=== PATIENT | female | born 1945 | race Caucasian/White ===

== ENCOUNTER 2018-10-17 10:21 | Inpatient (IN) | payer OTHER, BC ==
--- OUTSIDE RECORDS SUMMARY | 2018-10-17 10:23 | XMS REPORT | Clinical Summary ---
:1945 Author Organization [facility] Address [address] [place] [address] Care Team Providers Name Role Phone Esteban Jesus MD Primary Care Provider Allergies Active Allergy Reactions Severity Noted Date Comments Brimonidine 04/27/2017 Eyes becomes red Celecoxib Rash Low 04/27/2017 Codeine Other (See Comments) 04/27/2017 nausea Medications Medication Sig Dispensed Refills Start Date End Date Status acetaZOLAMIDE (DIAMOX) Take 125 mg by 0 Active 125 MG tablet mouth 3 (three) times a day. metFORMIN (GLUCOPHAGE) Take 1,000 mg by 0 Active 1,000 mg tablet mouth 2 (two) times a day with meals. gabapentin (NEURONTIN) Take 300 mg by 0 Active 300 mg capsule mouth 3 (three) times a day. nebivolol (BYSTOLIC) 10 Take 10 mg by 0 Active MG tablet mouth daily. atorvastatin (LIPITOR) Take 40 mg by 0 Active 40 MG tablet mouth daily. torsemide (DEMADEX) 20 Take 20 mg by 0 Active MG tablet mouth daily. rivaroxaban (XARELTO) Take 20 mg by 0 Active 20 mg tablet mouth. desvenlafaxine Take 50 mg by 0 Active (PRISTIQ) 50 MG 24 hr mouth daily. tablet ramipril (ALTACE) 5 MG Take 5 mg by 0 Active capsule mouth daily. oxyCODone (ROXICODONE) Take by mouth 0 Active 10 MG tablet every 4 (four) hours as needed for moderate pain. bimatoprost (LUMIGAN) 1 drop nightly. 0 Active 0.01 % ophthalmic drops dorzolamide-timolol 1 drop 2 (two) 0 Active (COSOPT) 22.3-6.8 mg/mL times a day. ophthalmic solution Active Problems Problem Noted Date Osteoarthritis of one hip, left 05/10/2017 Encounters Date Type Specialty Care Team Description 03/02/2018 Hospital Encounter Radiology Frederick Duckworth MD 02/27/2018 Office Visit General Surgery Frederick Duckworth Pancreatic cyst MD Keila (Primary Dx) after 10/16/2017 Social History Tobacco Use Types Packs/Day Years Used Date Former Smoker 04 18 Quit: 1999 Smokeless Tobacco: Never Used Sex Assigned at Date Recorded Not on file Job Start Date Occupation Industry Not on file Not on file Not on file Travel History Travel Start Travel End No recent travel history available. Last Filed Vital Signs Not on file Plan of Treatment Health Maintenance Due Date Last Done Comments BREAST CANCER SCREENING 1996 COLONOSCOPY SCREENING 1996 SHINGLES VACCINES (#1) 1996 65+ PNEUMOCOCCAL VACCINE (2 of 2 - PPSV23) 11/06/2011 03/20/2012 INFLUENZA VACCINE 10/18/2018 Implants Implanted Type Area Candy Butcher Device Shelf Model / Identifier Expiration Serial / Lot Date Screw Bone Canc Dome 6.5x25mm Ltxf [place] - [id number] Hip Joint Left: DEPUY ORTHO 01/17/2027 [id number] / Implanted: Qty: 1 on 05/10/2017 by Jayro Sykes MD Implants Hip / Shell Actblr Mul-Hl W/ Gripton 54mm [place] - [id number] Hip Joint Left: DEPUY 01/17/2027 [id number] / Implanted: 05/10/2017 (Quantity not on file) Implants Hip ORTHO-KNEES / [id number] Liner Actblr Neut Altra Linked Pe [id number] +4 Altrx - [id number] Hip Joint Left: DEPUY 01/17/2022 [id number] / Implanted: 05/10/2017 (Quantity not on file) Implants Hip ORTHO-KNEES / [id number] Head Fml Neck 03/02 Tprd Mtl 36mm -2 Articul/Mathew Ultamet - [id number] Hip Joint Left: DEPUY ORTHO 01/17/2022 [id number] / Implanted: 05/10/2017 (Quantity not on file) Implants Hip / [id number] Stem Hip Cmntls Tprd Procoat Pors Ctng Hiofst Ti Alloy 155mm - [id number] Hip Joint Left: DEPUY ORTHO 01/17/2026 [id number] / Implanted: 05/10/2017 (Quantity not on file) Implants Hip / [id number] Procedures Procedure Name Priority Date/Time Associated Diagnosis Comments CT ABD/PELVIC Routine 02/02/2018 1:50 PM Results for this EXTERNAL STUDY MACHINE BINDER STRIPPER procedure are in the results section. after 10/16/[address] Abd/Pelvic External Study (02/02/2018 1:50 PM MACHINE BINDER STRIPPER) Specimen Narrative Performed At This exam was not acquired at a Religious facility and has not been [facility] interpreted by a Religious Provider.The exam was imported into our imaging system for comparisons purposes. Performing Organization Address City/State/Zipcode Phone Number [facility] [address] [place] [address] after 10/16/2017 Insurance Payer Benefit Plan / Subscriber ID Effective Dates Phone Address Type Group MEDICARE MEDICARE PART A xxxxxxxxxxx 2011-Present [place], [place] Medicare AND B BCBS BCBS CHOICE xxxxxxxxxxxx 2013-Present PPO PPO/[employer] PPO Advance Directives Patient has advance care planning documents on file. For more information, please contact:[facility] [id number] [place] [address]
--- OUTSIDE RECORDS SUMMARY | 2018-10-17 10:23 | XMS REPORT ---
:1945 [facility] Address [address] [place] [address] Care Team Providers Name Role Phone Unavailable Unavailable Unavailable Payers Payer Name Policy Type Policy Number Effective Date Expiration Date Problems This patient has no known problems. Allergies, Adverse Reactions, Alerts Allergy Name Allergy Status Severity Reaction(s) Onset Inactive Treating Comments Type Date Date Clinician codeine DA Active 2017-05 00:00:0 0 brimonidine DA Active 2017-05 00:00:0 0 CELEBREX DA Active 2017-05 00:00:0 0 Medications This patient has no known medications.
--- NOTE | 2018-10-17 11:11 | RAD REPORT ---
EXAM DESCRIPTION: CT - Head Brain Wo Cont - 10/17/2018 10:59 am CLINICAL HISTORY: CONFUSED Headache, drowsiness COMPARISON: Head Brain Wo Cont dated 08/21/2018; CT PREVIOUS dated 08/09/2006 TECHNIQUE: All CT scans are performed using dose optimization technique as appropriate and may inclu de automated exposure control or mA/KV adjustment according to patient size. FINDINGS: No intracranial hemorrhage, hydrocephalus or extra-axial fluid collection.No areas of brai n edema or evidence of midline shift. The paranasal sinuses and mastoids are clear. The calvarium is intact. IMPRESSION: No acute intracranial abnormality.
[2018-10-17 11:48] LABS: Absolute Lymphocytes (CBC) 1.9 K/uL (0.7-4.9); Basophils % 0.3 % (0-1.3); MPV 7.7 fL (7.6-11.3); RBC Red Blood Cell Count 3.33 M/uL (3.86-4.86)
[2018-10-17 11:58] LABS: Protime INR 2.03
[2018-10-17] MEDS ORDERED: NA CHLORIDE 0.9% 500 ML ONE (12:00)
[2018-10-17 12:14] LABS: ALT/SGPT 18 U/L (12-78); AST/SGOT 22 U/L (15-37); Albumin 2.6 g/dL (3.4-5.0); Alkaline Phosphatase 81 U/L (45-117); BUN Blood Urea Nitrogen 19 mg/dL (7-18); Bicarbonate 17 mmol/L (21-32); Bilirubin Direct 0.1 mg/dL (0-0.2); Bilirubin Total 0.4 mg/dL (0.2-1.0); Glucose Level 187 mg/dL (74-106); NT PRO-BNP 1616 pg/mL (<125); Potassium 3.7 mmol/L (3.5-5.1); Sodium Level 141 mmol/L (136-145); Troponin (Emerg Dept Use Only) < 0.02 ng/mL (0.0-0.045)
--- NOTE | 2018-10-17 12:14 | RAD REPORT ---
EXAM DESCRIPTION: RAD - Chest Single View - 10/17/2018 12:02 pm CLINICAL HISTORY: AMS Chest pain. COMPARISON: <Comparisons> FINDINGS: Portable technique limits examination quality. The lungs are grossly clear. The heart is mildly prominent size. Old proximal right humerus fracture noted.
[2018-10-17 12:18] LABS: Magnesium 1.3 mg/dL (1.8-2.4)
[2018-10-17] MEDS ORDERED: Magnesium Sulfate 2gm IVPB 2 G/50 ML BAG IV ONE (12:49)
--- NOTE | 2018-10-17 15:28 | EKG ---
Test Date: 2018-10-17 Test Time: 11:10:13 Corporate Driver: DOMINIQUE MEASUREMENT RESULTS: Intervals: Rate: 94 MO: 152 QRSD: 82 QT: 352 QTc: 440 [place]: P: 37 MO: 152 QRS: 18 T: 45 INTERPRETIVE STATEMENTS: Normal sinus rhythm Nonspecific ST and T wave abnormality Abnormal ECG Compared to ECG 12/25/2015 14:18:00 ST (T wave) deviation now present T-wave abnormality no longer present Electronically Signed On 10-17-18 15:27:40 CDT by Marlon Delgado
--- NOTE | 2018-10-17 16:16 | ER ---
Nurse's Notes [facility] Name: Anita Samayoa Age: 72 yrs Sex: Female : 1945 Arrival Date: 10/17/2018 Time: 10:23 Bed 16 Private MD: Esteban Jesus Diagnosis: Urinary tract infection, site not specified;Altered mental status, unspecified;Hypomagnesemia;Dehydration;Anemia Presentation: 10/17 10:40 Presenting complaint: states: "She has a caregiver that got her out of bed this ss morning, and said that she was a little difficult to get up this morning and seemed confused." Patient has no complaints at this time, other than some mild confusion. Unknown onset. Patient went to bed at 1100 this am. Transition of care: patient was not received from another setting of care. Onset of symptoms is unknown. Risk Assessment: Do you want to hurt yourself or someone else? Patient reports no desire to harm self or others. Initial Sepsis Screen: Does the patient meet any 2 criteria? HR > 90 bpm. Does the patient have a suspected source of infection? No. Patient's initial sepsis screen is negative. Care prior to arrival: None. 10:40 Acuity: TONIA 3 ss 10:40 Method Of Arrival: Wheelchair ss Historical: - Allergies: 10:43 Alphagan P; ss 10:43 Celebrex; ss 10:43 Codeine; ss - PMHx: 10:43 Depression; Diabetes - IDDM; Glaucoma; Hyperlipidemia; Hypertension; Pulmonary Embolism;ss - PSHx: 10:43 D \\T\\ C; ; Tubal ligation; total knee replacement; gastric segmentation; lumbar ss laminectomy; IVC filter; total hip replacement; cataracts; "T\\T\\A"; - Immunization history:: Adult Immunizations up to date. - Social history:: Smoking status: Patient/guardian denies using tobacco. - Ebola Screening: : Patient denies exposure to infectious person Patient denies travel to an Ebola-affected area in the 21 days before illness onset. Screenin:10 Abuse screen: Denies threats or abuse. Denies injuries from another. Nutritional aj1 screening: No deficits noted. Tuberculosis screening: No symptoms or risk factors identified. 18:16 Fall Risk No fall in past 12 months (0 pts). Secondary diagnosis (15 points) AMS. IV aj1 access (20 points). Ambulatory Aid- None/Bed Rest/Nurse Assist (0 pts). Gait- Weak (10 pts.). Mental Status- Oriented to own ability (0 pts). Total Conde Fall Scale indicates High Risk Score (45 or more points). As available patient and family educated on Fall Prevention Program and Strategies. Assessment: 11:10 General: Appears in no apparent distress. comfortable, Behavior is calm, cooperative, aj1 appropriate for age. Pain: Denies pain. Neuro: Level of Consciousness is awake, alert, obeys commands, Oriented to person, place, time, situation, Moves all extremities. Full function Speech is normal, Facial symmetry appears normal, Reports Patient's reports that patient appeared confused and was having a hard time answering questions prior to arrival. Cardiovascular: Denies chest pain, Heart tones S1 S2 present Patient's skin is warm and dry. Rhythm is sinus rhythm. Respiratory: Airway is patent Respiratory effort is even, unlabored, Respiratory pattern is regular, symmetrical, Denies shortness of breath. GI: No signs and/or symptoms were reported involving the gastrointestinal system. : No signs and/or symptoms were reported regarding the genitourinary system. Denies burning with urination, urinary frequency. EENT: No signs and/or symptoms were reported regarding the EENT system. Derm: Skin is intact, is healthy with good turgor, Skin is dry, Skin is pale, Skin temperature is warm. Musculoskeletal: No signs and/or symptoms reported regarding the musculoskeletal system. Circulation, motion, and sensation intact. 12:09 Reassessment: Patient appears in no apparent distress at this time. No changes from aj1 previously documented assessment. Patient and/or family updated on plan of care and expected duration. Pain level reassessed. Patient is alert, oriented x 3, equal unlabored respirations, skin warm/dry/pink. 13:02 Reassessment: Patient appears in no apparent distress at this time. No changes from aj1 previously documented assessment. Patient and/or family updated on plan of care and expected duration. Pain level reassessed. Patient is alert, oriented x 3, equal unlabored respirations, skin warm/dry/pink. 14:37 Reassessment: Patient and/or family updated on plan of care and expected duration. Pain aj1 level reassessed. General: Appears in no apparent distress. comfortable, Behavior is calm, cooperative, appropriate for age. Pain: Denies pain. Neuro: Level of Consciousness is awake, alert, obeys commands, Oriented to person, place, time, situation, Moves all extremities. Full function Speech is normal, Facial symmetry appears normal. Cardiovascular: Patient's skin is warm and dry. Rhythm is sinus rhythm. Respiratory: Airway is patent Respiratory effort is even, unlabored, Respiratory pattern is regular, symmetrical. Derm: Skin is pale. 15:56 Reassessment: Patient appears in no apparent distress at this time. No changes from aj1 previously documented assessment. Patient and/or family updated on plan of care and expected duration. Pain level reassessed. Patient is alert, oriented x 3, equal unlabored respirations, skin warm/dry/pink. 17:00 Reassessment: Patient appears in no apparent distress at this time. No changes from aj1 previously documented assessment. Patient and/or family updated on plan of care and expected duration. Pain level reassessed. Patient is alert, oriented x 3, equal unlabored respirations, skin warm/dry/pink. 18:00 Reassessment: Patient and/or family updated on plan of care and expected duration. Pain aj1 level reassessed. General: Appears in no apparent distress. comfortable, Behavior is calm, cooperative, appropriate for age. Neuro: Level of Consciousness is awake, alert, obeys commands, Oriented to person, place, time, situation, Moves all extremities. Full function Speech is normal, Facial symmetry appears normal. Cardiovascular: Patient's skin is warm and dry. Rhythm is sinus rhythm. Respiratory: Airway is patent Respiratory effort is even, unlabored, Respiratory pattern is regular, symmetrical. Derm: Skin is dry, Skin is pale, Skin temperature is warm. Musculoskeletal: No signs and/or symptoms reported regarding the musculoskeletal system. Circulation, motion, and sensation intact. Vital Signs: 10:43 BP 98 / 50; Pulse 93; Resp 17; Temp 98.8(TE); Pulse Ox 98% on R/A; Weight 90.72 kg; ss Height 5 ft. 2 in. (157.48 cm); Pain 0/10; 12:14 BP 133 / 74; Pulse 88; Resp 18; Pulse Ox 97% on R/A; aj1 13:03 BP 120 / 73; Pulse 84; Resp 18; Pulse Ox 96% on R/A; aj1 14:38 BP 120 / 68; Pulse 82; Resp 18; Pulse Ox 95% on R/A; aj1 15:30 BP 122 / 75; Pulse 76; Resp 17; Pulse Ox 99% on R/A; aj1 18:00 BP 129 / 76; Pulse 88; Resp 18; Pulse Ox 97% on R/A; aj1 10:43 Body Mass Index 36.58 (90.72 kg, 157.48 cm) ED Course: 10:23 Patient arrived in ED. mr 10:24 Esteban Jesus MD is Private Physician. mr 10:27 Shayan Bee, ROSANGELA is PHCP. jmm 10:27 Wilton Mosher MD is Attending Physician. jmm 10:42 Triage completed. ss 10:43 Arm band placed on right wrist. ss 10:47 Linette Don, EDUARD is Primary Nurse. aj1 10:59 CT Head Brain wo Cont In Process Unspecified. EDMS 11:10 Patient has correct armband on for positive identification. Bed in low position. Call aj1 light in reach. Side rails up X 1. stud setter on. Pulse ox on. NIBP on. 11:10 No provider procedures requiring assistance completed. aj1 11:15 EKG done, by health information systems technician. reviewed by Wilton Mosher MD. at1 11:34 Initial lab(s) drawn, by ok, sent to lab. Inserted saline lock: 20 gauge in left wrist, aj1 using aseptic technique. Blood collected. 12:00 X-ray completed. Portable x-ray completed in exam room. Patient tolerated procedure mh1 well. 12:02 XRAY Chest (1 view) In Process Unspecified. EDMS 16:14 Esteban Jesus MD is Hospitalizing Provider. m 18:00 Report given to EDUARD Syed on 4th floor. aj1 18:16 Patient admitted, IV remains in place. aj1 Administered Medications: 11:47 Drug: NS 0.9% 500 ml Route: IV; Rate: bolus; Site: left wrist; aj1 12:30 Follow up: IV Status: Completed infusion; IV Intake: 500ml aj1 12:36 Drug: Magnesium Sulfate 2 grams Route: IVPB; Infused Over: 2 hrs; Site: left forearm; aj1 14:40 Follow up: IV Status: Completed infusion; IV Intake: 100ml aj 17:20 Drug: Rocephin - (cefTRIAXone) 1 grams Route: IVPB; Infused Over: 30 mins; Site: left aj wrist; 17:25 Follow up: IV Status: Completed infusion; IV Intake: 10ml ; Given SIVP per hospital [facility] protocol 17:49 Drug: Tylenol 650 mg Route: PO; aj1 18:19 Follow up: Response: No adverse reaction; Pain is decreased aj Intake: 12:30 IV: 500ml; Total: 500ml. aj1 14:40 IV: 100ml; Total: 600ml. aj1 17:25 IV: 10ml; Total: 610ml. aj Outcome: 16:15 Decision to Hospitalize by Provider. [facility] 18:16 Admitted to Tele accompanied by tech, via wheelchair, on monitor. aj 18:16 Condition: stable 18:16 Discharge instructions given to patient, family, Instructed on the need for admit, Demonstrated understanding of instructions. 18:22 Patient left the ED. aj Signatures: Dispatcher [employer] Linette Ramos, RN RN aj Shayan Bee, ROSANGELA ADAMES [facility] Reina Mccracken mr OrellanaBritta [facility] Michelle Lin RN RN ss Gonzales, Amanda, records management coordinator EKG Tat1
--- NOTE | 2018-10-17 16:16 | EDPHYS ---
Physician Documentation [facility] Name: Anita Samayoa Age: 72 yrs Sex: Female : 1945 Arrival Date: 10/17/2018 Time: 10:23 Bed 16 Private MD: Esteban Jesus ED Physician Wilton Mosher HPI: 10/17 10:46 This 72 yrs old Female presents to ER via Wheelchair with complaints of jmm Confusion. 10:46 The patient presents with confusion. Onset: The symptoms/episode began/occurred jmm gradually, today. Possible causes: unknown. Associated signs and symptoms: Pertinent positives: weakness, Pertinent negatives: abdominal pain, chest pain, diaphoresis, diarrhea, dizziness, headache, numbness, palpitations, shortness of breath, tingling. 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 stated when he got home the patient was slow to respond to questions and taking longer to stand up. Patient currently has no complaints. . Historical: - Allergies: 10:43 Alphagan P; ss 10:43 Celebrex; ss 10:43 Codeine; ss - PMHx: 10:43 Depression; Diabetes - IDDM; Glaucoma; Hyperlipidemia; Hypertension; Pulmonary Embolism;ss - PSHx: 10:43 D \\T\\ C; ; Tubal ligation; total knee replacement; gastric segmentation; lumbar ss laminectomy; IVC filter; total hip replacement; cataracts; "T\\T\\A"; - Immunization history:: Adult Immunizations up to date. - Social history:: Smoking status: Patient/guardian denies using tobacco. - Ebola Screening: : Patient denies exposure to infectious person Patient denies travel to an Ebola-affected area in the 21 days before illness onset. ROS: 10:46 Constitutional: Negative for fever, chills, and weight loss, Cardiovascular: Negative jmm for chest pain, palpitations, and edema, Respiratory: Negative for shortness of breath, cough, wheezing, and pleuritic chest pain, Abdomen/GI: Negative for abdominal pain, nausea, vomiting, diarrhea, and constipation, Skin: Negative for injury, rash, and discoloration. 10:46 Neuro: Positive for altered mental status, weakness, Negative for headache. 10:46 All other systems are negative. Exam: 10:46 Constitutional: This is a well developed, well nourished patient who is awake, alert, jmm and in no acute distress. Head/Face: atraumatic. Eyes: EOMI, no conjunctival erythema appreciated ENT: Moist Mucus Membranes Neck: Trachea midline, Supple Chest/axilla: Normal chest wall appearance and motion. Cardiovascular: Regular rate and rhythm. No edema appreciated Respiratory: Normal respirations, no respiratory distress appreciated Abdomen/GI: Non distended, soft Back: Normal ROM Skin: General appearance color normal MS/ Extremity: Moves all extremities, no obvious deformities appreciated, no edema noted to the lower extremities Neuro: Awake and alert, normal gait Psych: Behavior is normal, Mood is normal, Patient is cooperative and pleasant Vital Signs: 10:43 BP 98 / 50; Pulse 93; Resp 17; Temp 98.8(TE); Pulse Ox 98% on R/A; Weight 90.72 kg; ss Height 5 ft. 2 in. (157.48 cm); Pain 0/10; 12:14 BP 133 / 74; Pulse 88; Resp 18; Pulse Ox 97% on R/A; aj1 13:03 BP 120 / 73; Pulse 84; Resp 18; Pulse Ox 96% on R/A; aj1 14:38 BP 120 / 68; Pulse 82; Resp 18; Pulse Ox 95% on R/A; aj1 15:30 BP 122 / 75; Pulse 76; Resp 17; Pulse Ox 99% on R/A; aj1 18:00 BP 129 / 76; Pulse 88; Resp 18; Pulse Ox 97% on R/A; aj1 10:43 Body Mass Index 36.58 (90.72 kg, 157.48 cm) ss MDM: 10:31 Patient medically screened. [facility] 16:12 Data reviewed: vital signs, nurses notes. [facility] 16:13 Data reviewed: lab test result(s), radiologic studies, CT scan, plain films. [facility] Counseling: I had a detailed discussion with the patient and/or guardian regarding: the historical points, exam findings, and any diagnostic results supporting the discharge/admit diagnosis, lab results, radiology results, the need for further work-up and treatment in the hospital. ED course: I discussed the patient with Dr. Jesus whom accepted admission. . 07/31 10:44 Order name: Basic Metabolic Panel; Complete Time: 12:26 [facility] 10/17 10:44 Order name: CBC with Diff; Complete Time: 12:04 [facility] 10/17 10:44 Order name: LFT's; Complete Time: 12:26 [facility] 10/17 10:44 Order name: Magnesium; Complete Time: 12:26 [facility] 10/17 10:44 Order name: NT PRO-BNP; Complete Time: 12: [facility] 10/17 10:44 Order name: PT-INR; Complete Time: 12:12 [facility] 10/17 10:44 Order name: Troponin (emerg Dept Use Only); Complete Time: 12:26 [facility] 10/17 15:22 Order name: Urine Culture [facility] 10/17 15:22 Order name: Urine Microscopic Only; Complete Time: 17:25 [facility] 10/17 17:25 Interpretation: Abnormal: UBACT LOADED. [facility] 10/17 15:30 Order name: Urine Dipstick--Ancillary (enter results); Complete Time: 17:25 ss 10/17 15:54 Order name: Occult Blood--Ancillary; Complete Time: 17:25 bd 10/17 16:13 Order name: Procalcitonin [facility] 10/17 16:13 Order name: Lactate; Complete Time: 17:53 [facility] 10/17 16:13 Order name: Blood Culture Adult (2) [facility] 10/17 10:44 Order name: XRAY Chest (1 view); Complete Time: 12:26 [facility] 10/17 10:44 Order name: EKG; Complete Time: 10:45 [facility] 10/17 10:44 Order name: Cardiac monitoring; Complete Time: 10:47 [facility] 10/17 10:44 Order name: EKG - Nurse/Tech; Complete Time: 11:24 [facility] 10/17 10:44 Order name: IV Saline Lock; Complete Time: 11:34 [facility] 10/17 10:44 Order name: Labs collected and sent; Complete Time: 11:34 [facility] 10/17 10:44 Order name: CT Head Brain wo Cont; Complete Time: 11:15 [facility] 10/17 16:24 Order name: Consistent Carb (ADA) [address] [facility] 10/17 16:24 Order name: Basic Metabolic Panel [facility] 10/17 16:24 Order name: Basic Metabolic Panel [facility] 10/17 16:24 Order name: CBC with Automated Diff [facility] 10/17 16:24 Order name: CBC with Automated Diff [facility] 10/17 10:44 Order name: O2 Per Protocol; Complete Time: 10:47 [facility] 10/17 10:44 Order name: O2 Sat Monitoring; Complete Time: 10:47 [facility] 10/17 10:44 Order name: Urine Dipstick-Ancillary (obtain specimen); Complete Time: 15:28 [facility] Administered Medications: 11:47 Drug: NS 0.9% 500 ml Route: IV; Rate: bolus; Site: left wrist; aj1 12:30 Follow up: IV Status: Completed infusion; IV Intake: 500ml [facility] 12:36 Drug: Magnesium Sulfate 2 grams Route: IVPB; Infused Over: 2 hrs; Site: left forearm; aj1 14:40 Follow up: IV Status: Completed infusion; IV Intake: 100ml [facility] 17:20 Drug: Rocephin - (cefTRIAXone) 1 grams Route: IVPB; Infused Over: 30 mins; Site: left aj wrist; 17:25 Follow up: IV Status: Completed infusion; IV Intake: 10ml ; Given SIVP per hospital 1 protocol 17:49 Drug: Tylenol 650 mg Route: PO; aj1 18:19 Follow up: Response: No adverse reaction; Pain is decreased aj1 Disposition: 10/17/18 16:15 Hospitalization ordered by Esteban Jesus for Observation. Preliminary diagnosis are Urinary tract infection, site not specified, Altered mental status, unspecified, Hypomagnesemia, Dehydration, Anemia. - Bed requested for Telemetry/MedSurg (observation). - Status is Observation. aj1 - Condition is Stable. - Problem is new. - Symptoms have improved. UTI on Admission? Yes Addendum: 10/20/2018 07:08 Co-signature as Attending Physician, Wilton Mosher MD. r n Signatures: Dispatcher [employer] [facility] Linette Don RN RN aj1 Hanh Flanagan RN RN dw Mickail, Joel, PA PA [facility] Wilton Mosher MD MD rn Smirch, Shelby, RN RN ss Corrections: (The following items were deleted from the chart) 10/17 17:29 16:15 Hospitalization Ordered by Esteban Jesus MD for Observation. Preliminary dw diagnosis is Urinary tract infection, site not specified; Altered mental status, unspecified; Hypomagnesemia; Dehydration; Anemia. Bed requested for Telemetry/MedSurg (observation). Status is Observation. Condition is Stable. Problem is new. Symptoms have improved. UTI on Admission? Yes. [facility] 18:22 17:29 10/17/2018 16:15 Hospitalization Ordered by Esteban Jesus MD for Observation. aj1 Preliminary diagnosis is Urinary tract infection, site not specified; Altered mental status, unspecified; Hypomagnesemia; Dehydration; Anemia. Bed requested for Telemetry/MedSurg (observation). Status is Observation. Condition is Stable. Problem is new. Symptoms have improved. UTI on Admission? Yes. dw
[2018-10-17 16:52] LABS: Urine Bacteria LOADED /HPF (<20); Urine Culture Reflex Order NOT NEEDED
[2018-10-17 16:55] LABS: Urine Blood 3+ (NEG); Urine Glucose NEGATIVE (NEG); Urine Protein 2+ (NEG); Urine pH 5.5 (5.0-7.0)
[2018-10-17] MEDS: CEFTRIAXONE/SWI 1gm 1 GM/10 ML SYR IVP SCH (17:00)
[2018-10-17] MEDS ORDERED: CEFTRIAXONE/SWI 1gm 1 GM/10 ML SYR ONE (17:27)
[2018-10-17] MEDS ORDERED: ACETAMINOPHEN 325 MG TABLET ONE (17:46)
[2018-10-17] MEDS: NA CHLORIDE 0.9% 1,000 ML IV SCH (18:54)
[2018-10-17] MEDS: ACETAMINOPHEN 500 MG TAB PO PRN (23:33)
[2018-10-18] MEDS: NA CHLORIDE 0.9% 1,000 ML IV SCH ×3 (03:33→22:13)
[2018-10-18 04:52] LABS: Basophils % 0.4 % (0-1.3); Hematocrit 22.3 % (36.0-45.0); Lymphocytes % 12.1 % (15.3-44.8); MPV 7.6 fL (7.6-11.3)
[2018-10-18 05:07] LABS: Potassium 3.6 mmol/L (3.5-5.1)
[2018-10-18 05:33] VITALS: BMI 37.0
[2018-10-18] MEDS ORDERED: GLUCAGON 1 MG/VIAL IM PRN (05:52)
[2018-10-18] MEDS ORDERED: D50W 25 GM/50 ML SYRINGE IV PRN (05:52)
[2018-10-18] MEDS: ACETAMINOPHEN 500 MG TAB PO PRN ×2 (06:28→12:14)
[2018-10-18] MEDS ORDERED: MAGNESIUM SULFATE 1 gm IVPB 1 GM/100 ML BAG IV ONE (06:46)
[2018-10-18] MEDS: INSULIN -REGULAR HUMAN 50 UNIT/0.5 ML ML SQ SCH ×4 (07:30→20:40)
[2018-10-18] MEDS ORDERED: NA CHLORIDE 0.9% 250 ML IV SCH (08:00)
[2018-10-18] MEDS: CEFTRIAXONE/SWI 1gm 1 GM/10 ML SYR IVP SCH ×2 (09:50→20:44)
[2018-10-18] MEDS ORDERED: PROMETHAZINE 25 MG TABLET PO PRN (12:36)
[2018-10-18] MEDS: ENOXAPARIN 40 MG/0.4 ML SQ SCH (16:08)
[2018-10-18] MEDS: MORPHINE 2 MG/ML SYR IV PRN ×2 (16:09→20:41)
[2018-10-18 17:49] LABS: Hematocrit 26.1 % (36.0-45.0)
[2018-10-18] MEDS: acetaZOLAMIDE 250 MG TAB PO SCH (20:42)
[2018-10-18] MEDS ORDERED: GABAPENTIN 300 MG CAP PO SCH (21:00)
[2018-10-18] MEDS ORDERED: ATORVASTATIN 40 MG TAB PO SCH (21:00)
--- NOTE | 2018-10-19 02:52 | HP ---
Date of Admission: 10/17/2018 Entrance Complaint: Memory loss. History Of Present Illness: According to the , patient was fine when she went to bed the nigh t before presenting to the hospital. He stated when she woke up the morning her memory was definitel y impaired. She had no recollection of things she would normally recall. He felt the possibility of being a vascular incident was likely and he brought her to the emergency room. Patient has seen Pain Management and has been on hydrocodone preparations. However, she states she h ad taken 1 or 2 a week as of late and knows she has not taken one in at least 48 hours prior to prese nting to the emergency room. Past Medical History: Patient has had significant medical problems including hip replacement x2 with postop PEs, NIDDM under good control, hypertension controlled, depression also under good control. Family History: Noncontributory. Social History: Nonsmoker, nondrinker. Physical Examination: General: When seen, patient seemed orientated, did not seem confused. Her memory had improved consi derably, although not quite back to baseline. Head and Neck: Normocephalic. Pupils equal, reactive to light and accommodation. Fundi negative. Trachea midline. Thyroid not palpable. ENT: Negative. Chest: Clear to P and A. Cardiovascular: PMI midclavicular line. Heart sounds normal. Peripheral pulses are present and equ al bilaterally. Abdomen: No organomegaly. Bowel sounds present. Extremities: Good tone and movement bilaterally. Reflexes physiologic. Rectal and Pelvic: Deferred. Impression: Possible transient ischemic attack resulting in altered mental status. Dki-[id number]-bcxf ndent diabetes mellitus, good control. Hypertension, good control. Pulmonary embolism by history. Hip replacements by history. Plan: Patient will be admitted, placed on supportive therapy. Continue evaluation of her mental sta tus will take place. During her workup, she had a marked hypomagnesemia, which was replaced. She al so had evidence of a UTI. Therefore, placed on IV antibiotics; and most significantly has had a hemo globin on 2 occasions just over 7 and no prior history of anemia. 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 In view of this, she will be transfused at least 1 unit and Gastroenterology will be consulted. HR/MODL Voice ID: [id number]
[2018-10-19 03:38] LABS: Potassium 3.3 mmol/L (3.5-5.1)
[2018-10-19] MEDS: INSULIN -REGULAR HUMAN 50 UNIT/0.5 ML ML SQ SCH ×3 (07:30→16:30)
[2018-10-19 09:45] LABS: Absolute Lymphocytes (CBC) 2.7 K/uL (0.7-4.9); Basophils % 0.7 % (0-1.3); Lymphocytes % 19.1 % (15.3-44.8); MPV 8.5 fL (7.6-11.3); RBC Red Blood Cell Count 3.78 M/uL (3.86-4.86)
[2018-10-19] MEDS: CEFTRIAXONE/SWI 1gm 1 GM/10 ML SYR IVP SCH (09:56)
[2018-10-19] MEDS: acetaZOLAMIDE 250 MG TAB PO SCH (09:56)
[2018-10-19] MEDS: ENOXAPARIN 40 MG/0.4 ML SQ SCH (09:57)
[2018-10-19] MEDS: NA CHLORIDE 0.9% 1,000 ML IV SCH (10:04)
[2018-10-19 14:52] VITALS: O2SAT 98
--- NOTE | 2018-10-19 14:52 | PN ---
Date of Progress Note: 10/19/2018 Patient states she feels much better today. She has received 2 units of blood. Hemoglobin is over 9 , basically back to baseline. Physical therapy states she completed her without any probl ems. Her memory however is still an issue. Some question as to how the H and H got to this stage wh ether she has actual bleed or decreased production. She will be placed back on her usual medications including Xarelto tonight. She could be discharged following the MRI of her pancreas, which should be done within a couple of hours. As far as the E coli is concerned, it was resistant to the usual B actrim, Levaquin, Cipro, however, sensitive to cephalosporins and doxycycline. She was therefore dis charged on doxycycline 100 mg twice a day for 10 days. She is to follow up with me within 48-72 hour s depending on her status for the colonoscopy. We will discuss further with Dr. Lovelace. Obviously, t hey feel was a combination of circumstances and low hemoglobin, low magnesium, UTI that contributed t o her altered mental status, although she states her and herself thinks her memory has decrea sed and there is a significant difference between the time. She woke up confused and disorientated c ompared to her normal status. She is now basically back to her baseline memory. She will also be ev aluated as we control her other problems. HR/MODL Voice ID: [id number] Report ID: [id number]
[2018-10-19] MEDS ORDERED: POTASSIUM CL SA 10 MEQ TAB PO ONE (16:28)
[2018-10-19 16:52] VITALS: BP 167/79; TEMP 96.9
[2018-10-19] MEDS ORDERED: DOXYCYCLINE 100 MG CAP PO SCH (21:00)
--- NOTE | 2018-10-20 18:19 | RAD REPORT ---
EXAM DESCRIPTION: MRI - Mri Abdomen W/Wo Cont - 10/19/2018 2:07 pm CLINICAL HISTORY: Pancreatic mass COMPARISON: January 2018 cat scan TECHNIQUE: Axial and coronal magnetic resonance imaging of the pancreas obtained. 20 cc MultiHance a dministered intravenously. FINDINGS: An approximately 14 millimeter mass is present within the pancreatic tail. In retrospect t his is what it measures on the prior CT scan. It has low to intermediate signal on T1 weighted sequen kwabena. It has high signal on T2 weighted sequences. There is probably mild enhancement. The remainder of the pancreatic is normal in size and signal. Pancreatic duct normal caliber. 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 It is recommended that the patient a follow up MRI in [address] ability.
== END 2018-10-19 17:59 | disposition home or self-care (01) | DRG 690 ==
LOC: ER 10:21 → ERHOLD 16:20 → 4TH 18:02 → OBSVTOIN 10-19 16:48
PROVIDERS: ADMIT Family Medicine; ATTEND Family Medicine
DX: N39.0 Urinary tract infection, site not specified (principal); K86.2 Cyst of pancreas; D64.9 Anemia, unspecified; B96.20 Unspecified Escherichia coli [E. coli] as the cause of diseases classified elsewhere; I10 Essential (primary) hypertension; F32.9 Major depressive disorder, single episode, unspecified; E78.5 Hyperlipidemia, unspecified; Z79.01 Long term (current) use of anticoagulants; Z86.711 Personal history of pulmonary embolism
CPT/HCPCS: 36415; 36430; 70450; 71045; 80048; 80076; 81003; 81015; 82272; 82962; 83605; 83735; 83880; 84145; 84484; 85014; 85018; 85025; 85610; 86850; 86900; 86901; 87040; 87077; 87086; 87088; 87186; 93005; 96361; 96365; 96366; 96375; 97116; 97161; 99285; J0696; J1650; J2270; J3475; J7030; P9016

== ENCOUNTER 2019-10-16 11:03 | Inpatient (IN) | payer OTHER, BC ==
--- OUTSIDE RECORDS SUMMARY | 2019-10-16 11:40 | XMS REPORT | Clinical Summary ---
:1945 Author Organization [facility] Address [address] [place] [address] Care Team Providers Name Role Phone MD Edin Primary Care Provider Allergies Active Allergy Reactions Severity Noted Date Comments Brimonidine 04/27/2017 Eyes becomes re d Celecoxib Rash Low 04/27/2017 Codeine Other (See [...] mouth. desvenlafaxine Take 50 mg by 0 A ctive (PRISTIQ) 50 MG 24 hr mouth daily. [...] Date Osteoarthritis of one hip, left 05/10/2017 Social History Tobacco Use Types Packs/Day Years [...] PNEUMOCOCCAL VACCINE (2 of 2 - PPSV23) 11/06/201103/20 INFLUENZA VACCINE 10/19/2019 Implants Implanted Type Area Cutting Table Operator First Device Shelf Model / Identifier Expiration Serial / Lot Date Screw Bone Canc Dome 6.5x25mm Ltxf [place] - [id number] Hip Gail nt Left: DEPUY ORTHO 01/17/2027 [id number] / Implanted: Qty: 1 on 05/10/2017 by Jayro Sykes M D at [facility] Implants Hip / Shell Actblr Mul-Hl W/ Gripton 54mm [place] - [id number] Hip Joint Left: DEPUY 01/17/2027 [id number] / Implanted: 05/10/2017 at [facility] (Quantity not on file) Imp lants Hip ORTHO-KNEES / [id number] Liner Actblr Neut Altra Linked Pe [id number] +4 Altrx - [id number] Hip Joint Left: DEPUY 01/17/2022 [id number] / Implanted: 05/10/2017 at [facility] (Quantity not on file) Imp lants Hip ORTHO-KNEES / [id number] Head Fml Neck 03/02 Tprd Mtl 36mm -2 Articul/Mathew Ultamet - L [id number] Hip Joint Left: DEPUY ORTHO 01/17/2022 [id number] / Implanted: 05/10/2017 at [facility] (Quantity not on file) Implants Hip / [id number] Stem Hip Cmntls Tprd Procoat Pors Ctng Hiofst Ti Alloy 155mm - [id number] Hip Joint Left: DEPUY ORTHO 01/17/2026 [id number] / Implanted: 05/10/2017 at [facility] (Quantity not on file) Implants Hip / [id number] Results Not on fileafter 10/15/2018 Insurance Payer Benefit Plan / Subscriber ID Effective Dates Phone Addre ss Type Group MEDICARE MEDICARE PART A xxxxxxxxxxx 2011-Present [facility] [place] Medicare AND B BCBS BCBS CHOICE xxxxxxxxxxxx 2013-Present PPO PPO/F[employer]ERAL EMPL PPO Advance Directives For more information, please contact: [phone] Type Date Recorded 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
--- OUTSIDE RECORDS SUMMARY | 2019-10-16 11:41 | XMS REPORT | Continuity of Care Document ---
:1945 Author Organization [facility] t Address [address] [place] [address] Care Team Providers Name Role Phone Edin DAWSON Primary Care Physician Payers Payer Name Policy Type Policy Number Effective Date Expiration Date S ource Problems Condition Condition Condition Status Onset Resolution Last Treating Co mments Source Name Details Category Date Date Treatment Clinician Date Osteoarthr Osteoarthr Disease Active [place] [facility] one hip, one hip, 00:00: st left left 00 Allergies, Adverse Reactions, Alerts Allergy Allergy Status Severity Reaction(s) Onset Inactive Treating Comm ents Source Name Type Date Date Clinician codeine DA Active [facility] [place] 00:00: [facility] brimonid DA Active [facility] CELEBREX DA Active [facility] [place] 00:00: Orthope 00 [facility] Brimonid Propensi Active Eyes [place] ty to 04-27 becomes [facility] adverse 00:00: red st reaction 00 s to drug Celecoxi Propensi Active Rash [place] b ty to 04-27 [facility] adverse 00:00: st reaction 00 s to drug Codeine Propensi Active Other (See nausea Zack ston ty to Comments) 04-27 [facility] adverse 00:00: st reaction 00 s to drug Social History Social Habit Start Date Stop Date Quantity Comments Source History of tobacco Current smoker Antonio pollard [facility] use Sex Assigned At [place] [facility] Cigarettes smoked 2017-05-10 2017-05-10 [facility] current (pack per 00:00:00 00:00:00 day) - Reported Cigarette 2017-05-10 2017-05-10 [facility] pack-years 00:00:00 00:00:00 Smoking Status Start Date Stop Date Source Former smoker 2017-05-10 00:00:00 2017-05-10 00:00:00 [facility] Medications Ordered Filled Start Stop Current Ordering Indication Dosage Frequency Signature Comments Components Source Medication Medication Date Date Medication? Clinician (SIG) Name Name torsemide 2018-0 Yes 20mg QD Take 20 mg Antonio pollard (DEMADEX) 2-22 by mouth Method i 20 MG 11:56: daily. st tablet 54 rivaroxaban 2018-0 Yes 20mg Take 20 mg Wasserman (XARELTO) 2-22 by mouth. Metho di 20 mg 11:56: st tablet 54 ramipril 2017-0 Yes 5mg QD Take 5 mg Avril ton (ALTACE) 5 2-22 by mouth Metho di MG capsule 11:56: daily. st 54 acetaZOLAMI 2018-0 Yes 125mg [id number] Take 125 [facility] DE (DIAMOX) 2-22 [id number] mg by M ethodi 125 MG 11:56: 3D mouth 3 st tablet 53 (three) times a day. metFORMIN 2018-0 Yes 1000mg Q.5D Take 1,000 [facility] (GLUCOPHAGE 2-22 mg by Method[facility] ) 1,000 mg 11:56: mouth 2 st tablet 53 (two) times a day with meals. gabapentin 2018-0 Yes 300mg [id number] Take 300 [facility] (NEURONTIN) 2-22 [id number] mg by M ethodi 300 mg 11:56: 3D mouth 3 st capsule 53 (three) times a day. nebivolol 2018-0 Yes 10mg QD Take 10 mg Antonio pollard (BYSTOLIC) 2-22 by mouth Metho di 10 MG 11:56: daily. st tablet 53 atorvastati 2018-0 Yes 40mg QD Take 40 mg Wasserman n (LIPITOR) 2-22 by mouth Meth yrn 40 MG 11:56: daily. st tablet 53 desvenlafax 2018-0 Yes 50mg QD Take 50 mg [place] ine 2-22 by mouth Methodi (PRISTIQ) 11:56: daily. st 50 MG 24 hr 53 tablet oxyCODone 2018-0 Yes Q4H Take by Kateryna on (ROXICODONE 2- mouth Methodi ) 10 MG 11:56: every 4 st tablet 53 (four) hours as needed for moderate pain. bimatoprost 2018-0 Yes 1[drp] QD 1 drop Antonio pollard (LUMIGAN) 2-22 nightly. Method i 0.01 % 11:56: st ophthalmic 53 drops dorzolamide 2018-0 Yes 1[drp] Q.5D 1 drop 2 [facility] -timolol - (two) [facility]i (COSOPT) 11:56: times a st 22.3-6.8 53 day. mg/mL ophthalmic solution Procedures This patient has no known procedures. Plan of Care Planned Activity Planned Date Details Comments Source Future Scheduled 2019-10-19 INFLUENZA VACCINE Avtar rios [facility] 00:00:00 [code = INFLUENZA VACCINE] Future Scheduled 2011-11-06 65+ PNEUMOCOCCAL [facility] 00:00:00 VACCINE (2 of 2 - PPSV23) [code = 65+ PNEUMOCOCCAL VACCINE (2 of 2 - PPSV23)] Future Scheduled 1996 BREAST CANCER [facility] Test 00:00:00 SCREENING [code = BREAST CANCER SCREENING] Future Scheduled 1996 COLONOSCOPY SCREENING Antonio pollard [facility] Test 00:00:00 [code = COLONOSCOPY SCREENING] Future Scheduled 1996 SHINGLES VACCINES (#1) Yosvany holguin [facility] Test 00:00:00 [code = SHINGLES VACCINES (#1)] Results This patient has no known results.
[2019-10-16 11:53] LABS: Basophils % 0.8 % (0-1.3); Hematocrit 29.3 % (36.0-45.0); Lymphocytes % 19.8 % (15.3-44.8); MPV 10.2 fL (7.6-11.3); RBC Red Blood Cell Count 3.82 M/uL (3.86-4.86)
--- NOTE | 2019-10-16 12:17 | RAD REPORT ---
EXAM DESCRIPTION: US - Extrem Venous W Compress Lalo - 10/16/2019 11:59 am CLINICAL HISTORY: right thigh pain, bilateal leg swelling;Pain Bilateral leg edema and swelling. COMPARISON: Upper Lower Extrem Art Multi dated 06/21/2018 TECHNIQUE: Real-time sonographic interrogation of the left and right lower extremity deep venous sys tems was performed. FINDINGS: Thrombus is present bilaterally from the level of the common femoral veins to the ankles. IMPRESSION: Extensive bilateral deep venous thrombosis from the level of the common femoral veins to the ankles.
--- NOTE | 2019-10-16 12:30 | RAD REPORT ---
EXAM DESCRIPTION: CT - Head Brain Wo Cont - 10/16/2019 12:23 pm CLINICAL HISTORY: Confused;Dizziness Headache, drowsiness COMPARISON: Head Brain Wo Cont dated 10/17/2018; Head Brain Wo Cont dated 08/21/2018 TECHNIQUE: All CT scans are performed using dose optimization technique as appropriate and may inclu de automated exposure control or mA/KV adjustment according to patient size. FINDINGS: No intracranial hemorrhage, hydrocephalus or extra-axial fluid collection.Mild brain atrop hy.No areas of brain edema or evidence of midline shift. The paranasal sinuses and mastoids are clear. The calvarium is intact. IMPRESSION: No acute intracranial abnormality.
[2019-10-16 12:34] LABS: ALT/SGPT 11 U/L (12-78); AST/SGOT 13 U/L (15-37); Albumin 3.7 g/dL (3.4-5.0); Alkaline Phosphatase 89 U/L (45-117); BUN Blood Urea Nitrogen 48 mg/dL (7-18); Bilirubin Direct 0.1 mg/dL (0-0.2); Bilirubin Total 0.4 mg/dL (0.2-1.0); Glucose Level 168 mg/dL (74-106); Magnesium 2.1 mg/dL (1.8-2.4); Potassium 4.1 mmol/L (3.5-5.1); Protein, Total 8.2 g/dL (6.4-8.2); Sodium Level 137 mmol/L (136-145); Troponin (Emerg Dept Use Only) < 0.02 ng/mL (0.0-0.045)
[2019-10-16 12:36] LABS: Bicarbonate 13 mmol/L (21-32)
--- NOTE | 2019-10-16 12:37 | RAD REPORT ---
EXAM DESCRIPTION: RAD - Chest Single View - 10/16/2019 12:29 pm CLINICAL HISTORY: confused and dizzy COMPARISON: Portable September 2018 TECHNIQUE: AP portable chest image was obtained 10/16/2019 12:29 pm . FINDINGS: Lung volumes are decreased compared to the prior study. This accentuates heart, vasculatur e and lung markings. Mild interstitial edema or infiltrate could be masked. Lung markings are focally more prominent in the medial right base. This is questionable for early pne umonia. Heart and vasculature are normal. No measurable pleural effusion and no pneumothorax. No acut e bony abnormality seen. No acute aortic findings suspected. IMPRESSION: Increased opacification medial right base along with overall increased prominence of the interstitial markings throughout the chest compared to 1 year earlier. Findings may be partly or entirely due to the low lung volumes. Early right base pneumonia and mild i nterstitial edema cannot be excluded.
--- NOTE | 2019-10-16 13:11 | EDPHYS ---
Physician Documentation [facility] Name: Anita Samayoa Age: 73 yrs Sex: Female : 1945 Arrival Date: 10/16/2019 Time: 11:06 Bed 18 Private MD: Esteban Jesus ED Physician Tim Díaz HPI: 10/15 13:27 This 73 yrs old Female presents to ER via Wheelchair with complaints of kdr Dizziness, Leg Swelling. 13:28 The patient c/o slight dizziness when prompted and also right upper leg pain. Though a kdr poor historian, this may have been ongoing for the past three to four days. Severity of symptoms: At their worst the symptoms were very mild in the emergency department the symptoms are unchanged. It is unknown whether or not the patient has had similar symptoms in the past. It is unknown whether or not the patient has recently seen a physician. The patient correctly stated that she came from home where she livers with her by EMS and that she was in the hospital. She seemed somewhat less convincing that her complaints were focal. Historical: - Allergies: 11:30 Alphagan P; ca1 11:30 Celebrex; ca1 11:30 Codeine; ca1 - Home Meds: 11:30 dorzolamide-timolol 22.3-6.8 mg/mL ophthalmic drop 1 drop 2 times per day [Active]; ca1 Xarelto 20 mg oral tab 1 tab once daily [Active]; atorvastatin 40 mg Oral tab 1 tab nightly [Active]; desvenlafaxine succinate oral 50 mg oral 1 tab once daily [Active]; metformin 1,000 mg Oral tr24 1 tab twice a day [Active]; Lumigan 0.01 % ophthalmic drop nightly [Active]; gabapentin 300 mg Oral cap 3 caps bedtime [Active]; hydrocodone-acetaminophen 10-325 mg Oral tab 1 tab q6h prn for Pain [Active]; promethazine 25 mg Oral tab 1 tab every 4 hours [Active]; Bystolic 5 mg Oral tab 1 tab once daily [Active]; acetazolamide 250 mg Oral tab 1 tab 2 times per day [Active]; - PMHx: 11:30 Depression; Diabetes - IDDM; Diabetes - NIDDM; Glaucoma; Hyperlipidemia; Hypertension; ca1 Pulmonary Embolism; - PSHx: 11:30 D \\T\\ C; ; Tubal ligation; total knee replacement; gastric segmentation; lumbar ca1 laminectomy; IVC filter; total hip replacement; cataracts; "T\\T\\A"; - Immunization history:: Adult Immunizations up to date. - Social history:: Smoking status: Patient denies any tobacco usage or history of. ROS: 13:28 Constitutional: Negative for fever, chills, and weight loss, Eyes: Negative for injury, kdr pain, redness, and discharge, ENT: Negative for injury, pain, and discharge, Neck: Negative for injury, pain, and swelling, Cardiovascular: Negative for chest pain, palpitations, and edema, Respiratory: Negative for shortness of breath, cough, wheezing, and pleuritic chest pain, Abdomen/GI: Negative for abdominal pain, nausea, vomiting, diarrhea, and constipation, Back: Negative for injury and pain, : Negative for injury, bleeding, discharge, and swelling, Skin: Negative for injury, rash, and discoloration, Neuro: Negative for headache, weakness, numbness, tingling, and seizure activity. Psych: Negative for depression, anxiety, suicide ideation, homicidal ideation, and hallucinations, Allergy/Immunology: Negative for hives, rash, and allergies, Endocrine: Negative for neck swelling, polydipsia, polyuria, polyphagia, and marked weight changes, Hematologic/Lymphatic: Negative for swollen nodes, abnormal bleeding, and unusual bruising. 13:28 MS/extremity: Positive for swelling, of the right leg and left leg. Exam: 11:39 ECG was reviewed by the Attending Physician. kdr 13:28 Constitutional: This is a well developed, well nourished patient who is awake, alert, kdr and in no acute distress. Head/Face: Normocephalic, atraumatic. Eyes: Pupils equal round and reactive to light, extra-ocular motions intact. Lids and lashes normal. Conjunctiva and sclera are non-icteric and not injected. Cornea within normal limits. Periorbital areas with no swelling, redness, or edema. Neck: Trachea midline, no thyromegaly or masses palpated, and no cervical lymphadenopathy. Supple, full range of motion without nuchal rigidity, or vertebral point tenderness. No Meningismus. Chest/axilla: Normal chest wall appearance and motion. Nontender with no deformity. No lesions are appreciated. Cardiovascular: Regular rate and rhythm with a normal S1 and S2. No gallops, murmurs, or rubs. Normal PMI, no JVD. No pulse deficits. Respiratory: Lungs have equal breath sounds bilaterally, clear to auscultation and percussion. No rales, rhonchi or wheezes noted. No increased work of breathing, no retractions or nasal flaring. Abdomen/GI: Soft, non-tender, with normal bowel sounds. No distension or tympany. No guarding or rebound. No evidence of tenderness throughout. Back: No spinal tenderness. No costovertebral tenderness. Full range of motion. Skin: Warm, dry with normal turgor. Normal color with no rashes, no lesions, and no evidence of cellulitis. Neuro: Awake and alert, GCS 15, oriented to person, place, time, and situation. Cranial nerves II-XII grossly intact. Motor strength 4/5 in lower extremities. Sensory grossly intact. Cerebellar exam grossly intact Psych: Awake, alert, with orientation to person, place and time. Behavior, mood, and affect are within normal limits. 13:28 Musculoskeletal/extremity: Extremities: grossly normal except: Rodríguez legs with chronic bilateral edema. Vital Signs: 11:15 BP 103 / 66; Pulse 103; Resp 18 S; Temp 97.6(O); Pulse Ox 99% on R/A; Weight 89.81 kg ca1 (R); Height 5 ft. 4 in. (162.56 cm) (R); 12:36 BP 107 / 81; Pulse 89; Resp 24; Pulse Ox 100% ; bp 13:38 BP 98 / 68; Pulse 91; Resp 12; Pulse Ox 100% ; bp 14:30 BP 95 / 60; Pulse 77; Resp 16; Pulse Ox 100% ; bp 15:30 BP 107 / 71; Pulse 100; Resp 16; Pulse Ox 100% ; bp 11:15 Body Mass Index 33.99 (89.81 kg, 162.56 cm) ca1 MDM: 13:10 Patient medically screened. kdr 13:28 Data reviewed: vital signs, nurses notes, lab test result(s), EKG, radiologic studies. kdr Counseling: I had a detailed discussion with the patient and/or guardian regarding: the historical points, exam findings, and any diagnostic results supporting the discharge/admit diagnosis, lab results, radiology results, the need for further work-up and treatment in the hospital. Physician consultation: Esteban Jesus MD regarding admission, and will see patient in inpatient room, later today. Admission orders: after a detailed discussion of the patient's condition and case, the admit orders are written by me. 10/15 11:32 Order name: Basic Metabolic Panel [facility] 10/15 11:32 Order name: CBC with Diff; Complete Time: 12:43 [facility] 10/15 11:32 Order name: LFT's; Complete Time: 12:43 [facility] 10/15 11:32 Order name: Magnesium; Complete Time: 12:43 [facility] 10/15 11:32 Order name: Troponin (emerg Dept Use Only); Complete Time: 12:43 [facility] 10/15 11:33 Order name: Basic Metabolic Panel; Complete Time: 12:43 [facility] 10/15 11:32 Order name: CT Head Brain wo Cont; Complete Time: 12:43 [facility] 10/15 11:32 Order name: XRAY Chest (1 view); Complete Time: 12:43 [facility] 10/15 11:32 Order name: US Extremity Venous W Compression Lalo; Complete Time: 12:43 [facility] 10/15 13:36 Order name: Urine Dipstick--Ancillary (enter results) 10/15 14:01 Order name: Basic Metabolic Panel [facility] 10/15 14:01 Order name: Basic Metabolic Panel [facility] 10/15 14:01 Order name: CBC with Automated Diff [facility] 10/15 14:01 Order name: CBC with Automated Diff [facility] 10/15 11:32 Order name: EKG; Complete Time: 11:33 [facility] 10/15 11:32 Order name: Cardiac monitoring; Complete Time: 11:35 [facility] 10/15 11:32 Order name: EKG - Nurse/Tech; Complete Time: 11:35 [facility] 10/15 11:32 Order name: IV Saline Lock; Complete Time: 11:35 [facility] 10/15 11:32 Order name: Labs collected and sent; Complete Time: 11:35 [facility] 10/15 11:32 Order name: O2 Per Protocol; Complete Time: 11:35 [facility] 10/15 11:32 Order name: O2 Sat Monitoring; Complete Time: 11:35 [facility] 10/15 11:32 Order name: Urine Dipstick-Ancillary (obtain specimen): Cath; Complete Time: 13:35 [facility] 10/15 13:02 Order name: Clara; Complete Time: 13:14 kdr 10/15 14:01 Order name: Consistent Carb (ADA) [address] [facility] 10/15 16:22 Order name: VQ scan (Nuclear Medicine) bd EC:39 Rate is 94 beats/min. Rhythm is regular, Normal Sinus Rhythm with No ectopy. QRS [place] kdr is Normal. [place] interval is normal. QRS interval is normal. QT interval is normal. No Q waves. T waves are Normal. Clinical impression: NSR w/ Non-specific ST/T Changes. Administered Medications: 13:05 Drug: Rocephin 1 grams Route: IV; Rate: bolus; Site: right hand; bp 17:09 Follow up: IV Status: Completed infusion; IV Intake: 50ml bp 13:05 Drug: Zithromax 500 mg Route: PO; bp 17:09 Follow up: Response: No adverse reaction bp 13:10 Drug: Insulin Regular Human 2 units {Co-Signature: [email or web address] (Sindhu Mccracken RN).} Route: bp IVP; Site: right hand; 17:09 Follow up: Response: No adverse reaction bp 13:10 Drug: NS 0.9% 1000 ml Route: IV; Rate: 75 ml/hr; Site: right hand; bp 17:10 Follow up: IV Status: Infusion continued upon admission bp Disposition: 10/16/19 13:10 Hospitalization ordered by Esteban Jesus for Inpatient Admission. Preliminary diagnosis are Pneumonia, unspecified organism, Acute renal failure, Anemia, mild ealry DKA. - Bed requested for Telemetry/MedSurg (Inpatient). - Status is Inpatient Admission. bp - Condition is Fair. - Problem is new. - Symptoms have improved. Signatures: Dispatcher [employer] [facility] Lily Milan RN RN kl Rittger, Kevin, MD MD kdr Peltier, Brian, RN RN bp Acob, Cheryl, RN RN ca1 Sindhu Mccracken RN [email or web address] Corrections: (The following items were deleted from the chart) 16:24 13:10 Hospitalization Ordered by Esteban Jesus MD for Inpatient Admission. Preliminary kl diagnosis is Pneumonia, unspecified organism; Acute renal failure, Anemia, mild ealry DKA. Bed requested for Telemetry/MedSurg (Inpatient). Status is Inpatient Admission. Condition is Fair. Problem is new. Symptoms have improved. kdr 18:20 16:24 10/16/2019 13:10 Hospitalization Ordered by Esteban Jesus MD for Inpatient bp Admission. Preliminary diagnosis is Pneumonia, unspecified organism; Acute renal failure, Anemia, mild ealry DKA. Bed requested for Telemetry/MedSurg (Inpatient). Status is Inpatient Admission. Condition is Fair. Problem is new. Symptoms have improved. kl
--- NOTE | 2019-10-16 13:11 | ER ---
Nurse's Notes [facility] Name: Anita Samayoa Age: 73 yrs Sex: Female : 1945 Arrival Date: 10/16/2019 Time: 11:06 Bed 18 Private MD: Esteban Jesus Diagnosis: Pneumonia, unspecified organism;Acute renal failure, Anemia, mild ealry DKA Presentation: 10/15 11:15 Chief complaint: Spouse and/or significant other states: Dizzy spells and general body ca1 weakness x 2-3 days, leg swelling.. Today, she is confused and slow to respond and more weak than she was. Hx of UTI with previous hospitalization of the same symptoms. Previous hx of Blood Transfusion with no source of bleeding. Pt A\\T\\Ox.1. Coronavirus screen: Patient denies a cough. Patient denies shortness of breath or difficulty breathing. Patient denies measured and/or subjective temperature greater than 100.4F prior to today's visit. Patient denies travel on a cruise ship or to a country the [facility] currently lists as an affected area. Patient denies contact with known and/or suspected case of COVID-19. Proceed with normal triage. Ebola Screen: Patient negative for fever greater than or equal to 101.5 degrees Fahrenheit, and additional compatible Ebola Virus Disease symptoms Patient denies exposure to infectious person. Patient denies travel to an Ebola-affected area in the 21 days before illness onset. No symptoms or risks identified at this time. Initial Sepsis Screen: Does the patient meet any 2 criteria? No. Patient's initial sepsis screen is negative. Does the patient have a suspected source of infection? No. Patient's initial sepsis screen is negative. Risk Assessment: Do you want to hurt yourself or someone else? Patient reports no desire to harm self or others. Onset of symptoms was October 16, 2019. 11:15 Method Of Arrival: Wheelchair ca1 11:15 Acuity: TONIA 3 ca1 Triage Assessment: 11:20 General: Appears distressed, comfortable, obese, Behavior is cooperative, anxious. bp Pain: Complains of pain in right leg and left leg. EENT: No deficits noted. Neuro: Level of Consciousness is awake, alert, obeys commands, Oriented to person, place, time, situation, Speech is normal. Cardiovascular: No deficits noted. Respiratory: No deficits noted. GI: No signs and/or symptoms were reported involving the gastrointestinal system. : No signs and/or symptoms were reported regarding the genitourinary system. Derm: No deficits noted. Musculoskeletal: Swelling present in right leg and left leg. Historical: - Allergies: 11:30 Alphagan P; ca1 11:30 Celebrex; ca1 11:30 Codeine; ca1 - Home Meds: 11:30 dorzolamide-timolol 22.3-6.8 mg/mL ophthalmic drop 1 drop 2 times per day [Active]; ca1 Xarelto 20 mg oral tab 1 tab once daily [Active]; atorvastatin 40 mg Oral tab 1 tab nightly [Active]; desvenlafaxine succinate oral 50 mg oral 1 tab once daily [Active]; metformin 1,000 mg Oral tr24 1 tab twice a day [Active]; Lumigan 0.01 % ophthalmic drop nightly [Active]; gabapentin 300 mg Oral cap 3 caps bedtime [Active]; hydrocodone-acetaminophen 10-325 mg Oral tab 1 tab q6h prn for Pain [Active]; promethazine 25 mg Oral tab 1 tab every 4 hours [Active]; Bystolic 5 mg Oral tab 1 tab once daily [Active]; acetazolamide 250 mg Oral tab 1 tab 2 times per day [Active]; - PMHx: 11:30 Depression; Diabetes - IDDM; Diabetes - NIDDM; Glaucoma; Hyperlipidemia; Hypertension; ca1 Pulmonary Embolism; - PSHx: 11:30 D \\T\\ C; ; Tubal ligation; total knee replacement; gastric segmentation; lumbar ca1 laminectomy; IVC filter; total hip replacement; cataracts; "T\\T\\A"; - Immunization history:: Adult Immunizations up to date. - Social history:: Smoking status: Patient denies any tobacco usage or history of. Screenin:35 Abuse screen: Denies threats or abuse. Denies injuries from another. Nutritional jr10 screening: No deficits noted. Tuberculosis screening: No symptoms or risk factors identified. Fall Risk Fall in past 12 months (25 points). No secondary diagnosis (0 pts). IV access (20 points). Ambulatory Aid- None/Bed Rest/Nurse Assist (0 pts). Gait- Weak (10 pts.). Mental Status- Overestimates/Forgets Limitations (15 pts.). Assessment: 11:20 General: SEE TRIAGE NOTE. bp 11:52 Reassessment: VENOUS U/S COMPLETED. bp 13:30 Reassessment: ADMIT INITIATED. PT RESTING QUIETLY. bp 15:30 Reassessment: ADMIT IN PROCESS. NO S/S ACUTE DISTRESS AT THIS TIME. bp Vital Signs: 11:15 BP 103 / 66; Pulse 103; Resp 18 S; Temp 97.6(O); Pulse Ox 99% on R/A; Weight 89.81 kg ca1 (R); Height 5 ft. 4 in. (162.56 cm) (R); 12:36 BP 107 / 81; Pulse 89; Resp 24; Pulse Ox 100% ; bp 13:38 BP 98 / 68; Pulse 91; Resp 12; Pulse Ox 100% ; bp 14:30 BP 95 / 60; Pulse 77; Resp 16; Pulse Ox 100% ; bp 15:30 BP 107 / 71; Pulse 100; Resp 16; Pulse Ox 100% ; bp 11:15 Body Mass Index 33.99 (89.81 kg, 162.56 cm) ca1 ED Course: 11:06 Patient arrived in ED. as 11:07 Esteban Jesus MD is Private Physician. as 11:12 Tim Díaz MD is Attending Physician. kdr 11:13 George Burgos, EDUARD is Primary Nurse. bp 11:26 Triage completed. ca1 11:30 Arm band placed on right wrist. ca1 11:35 Patient has correct armband on for positive identification. Bed in low position. Call jr10 light in reach. Side rails up X2. Pulse ox on. NIBP on. 11:35 No provider procedures requiring assistance completed. Inserted saline lock: 22 gauge jr10 in right hand, using aseptic technique. IV is patent, is intact, with good blood return, Flushed. 11:59 US Extremity Venous W Compression Lalo In Process Unspecified. EDMS 12:22 CT Head Brain wo Cont In Process Unspecified. EDMS 12:29 XRAY Chest (1 view) In Process Unspecified. EDMS 13:07 Esteban Jesus MD is Hospitalizing Provider. kdr 13:14 Elizabeth cath inserted, using sterile technique, 16 Fr., by wv, balloon inflated, to mt gravity drainage, returned cloudy urine. Patient tolerated well. Administered Medications: 13:05 Drug: Rocephin 1 grams Route: IV; Rate: bolus; Site: right hand; bp 17:09 Follow up: IV Status: Completed infusion; IV Intake: 50ml bp 13:05 Drug: Zithromax 500 mg Route: PO; bp 17:09 Follow up: Response: No adverse reaction bp 13:10 Drug: Insulin Regular Human 2 units {Co-Signature: [email or web address] (Sindhu Mccarcken RN).} Route: bp IVP; Site: right hand; 17:09 Follow up: Response: No adverse reaction bp 13:10 Drug: NS 0.9% 1000 ml Route: IV; Rate: 75 ml/hr; Site: right hand; bp 17:10 Follow up: IV Status: Infusion continued upon admission bp Intake: 17:09 IV: 50ml; Total: 50ml. bp Outcome: 13:10 Decision to Hospitalize by Provider. kdr 17:41 Admitted to Tele accompanied by tech, via wheelchair, room 204, with chart, Report bp called to KAYLI CHAPA 17:41 Condition: stable 17:41 Instructed on the need for admit. 18:20 Patient left the ED. bp Signatures: Dispatcher [employer] EDMS Tim Díaz MD MD kdr Martinez, Amelia as Thompson, [facility] George Burgos RN RN bp Tha, Luz Marina, RN Sindhu Hernandez RN RN [email or web address] Sindhu Mccracken RN [email or web address] Corrections: (The following items were deleted from the chart) 12:38 11:20 Neuro: No deficits noted. bp bp 13:38 12:36 BP 107 / 81; Pulse 11bpm; Resp 24bpm; Pulse Ox 100%; bp bp
[2019-10-16] MEDS ORDERED: INSULIN -REGULAR HUMAN 50 UNIT/0.5 ML ML ONE (13:26)
[2019-10-16] MEDS ORDERED: AZITHROMYCIN 250 MG TAB ONE (13:28)
[2019-10-16] MEDS ORDERED: NA CHLORIDE 0.9% 1,000 ML ONE (13:28)
[2019-10-16] MEDS ORDERED: CEFTRIAXONE/SWI 1gm 1 GM/10 ML SYR ONE (13:28)
[2019-10-16] MEDS ORDERED: NA CHLORIDE 0.9% 100 ML IV ONE (13:28)
[2019-10-16 13:44] LABS: Urine Blood NEGATIVE (NEG); Urine Glucose NEGATIVE (NEG); Urine Protein NEGATIVE (NEG); Urine pH 6.5 (5.0-7.0)
[2019-10-16] MEDS ORDERED: GLUCAGON 1 MG/VIAL IM PRN (13:52)
[2019-10-16] MEDS ORDERED: ONDANSETRON 4 MG/2 ML VIAL IV PRN (13:52)
[2019-10-16] MEDS ORDERED: D50W 25 GM/50 ML SYRINGE/VIAL IV PRN (13:52)
[2019-10-16] MEDS: NA CHLORIDE 0.9% 1,000 ML IV SCH ×2 (14:00→20:32)
[2019-10-16] MEDS: INSULIN -REGULAR HUMAN 50 UNIT/0.5 ML ML SQ SCH ×2 (16:30→20:41)
[2019-10-16 19:42] VITALS: BMI 34.0
[2019-10-16] MEDS: CEFTRIAXONE/SWI 1gm 1 GM/10 ML SYR IVP SCH (20:33)
[2019-10-16] MEDS ORDERED: PROMETHAZINE 25 MG TABLET PO PRN (21:58)
[2019-10-16] MEDS: NACHLORIDE 0.45% 1,000 ML with NA BICARB 8.4% 75 MEQ IV SCH ×2 (22:27)
[2019-10-16] MEDS ORDERED: SODIUM BICARB 50 MEQ/50ML VIAL ONE (22:29)
[2019-10-16] MEDS ORDERED: NACHLORIDE 0.45% 1,000 ML IV ONE (22:30)
[2019-10-16 22:44] LABS: Arterial Blood Carboxyhemoglob 1.2 % (0-1.5); Blood Gas Oxyhemoglobin 95.2 % (94-97); Blood O2 Saturation 97.6 % (92-98.5)
[2019-10-17 05:22] LABS: Absolute Lymphocytes (CBC) 2.2 K/uL (0.7-4.9); Basophils % 0.7 % (0-1.3); Hematocrit 22.6 % (36.0-45.0); Lymphocytes % 23.4 % (15.3-44.8); MPV 9.7 fL (7.6-11.3); RBC Red Blood Cell Count 3.04 M/uL (3.86-4.86)
[2019-10-17 05:56] LABS: Albumin 3.3 g/dL (3.4-5.0); Ferritin 53.2 ng/mL (8-388); Folic Acid, (Folate) 4.3 ng/mL (3.1-17.5); Phosphorus 5.3 mg/dL (2.5-4.9); Potassium 4.5 mmol/L (3.5-5.1); Uric Acid 8.1 mg/dL (2.6-6.0)
[2019-10-17] MEDS: INSULIN -REGULAR HUMAN 50 UNIT/0.5 ML ML SQ SCH ×4 (07:30→20:44)
--- NOTE | 2019-10-17 07:34 | EKG ---
Test Date: 2019-10-16 Test Time: 11:38:42 Manager Hospitality: LEIGHANN MEASUREMENT RESULTS: Intervals: Rate: 94 TX: 156 QRSD: 88 QT: 372 QTc: 465 [place]: P: 72 TX: 156 QRS: 14 T: 67 INTERPRETIVE STATEMENTS: Sinus rhythm with premature atrial complexes Nonspecific ST abnormality Abnormal ECG Compared to ECG 10/17/2018 11:10:13 Atrial premature complex(es) now present ST (T wave) deviation still present Electronically Signed On 10-17-19 07:32:31 CDT by Abbe Patiño
--- NOTE | 2019-10-17 08:00 | RAD REPORT ---
EXAM DESCRIPTION: NM - Vent Perfusion VQ Scan - 10/17/2019 6:24 am CLINICAL HISTORY: Shortness of breath COMPARISON: October 16, 2019 chest x-ray TECHNIQUE: 19.9 Mci [id number] was administered by inhalation. First breath, equilibrium, and washout images of the lungs obtained 7.74millicuries Technetium-99 MAA was administered intravenously. Anterior, posterior, lateral and ob lique views of the lungs were taken. FINDINGS: A moderate peripheral defect is present within the right upper lobe on the perfusion image s. The remainder of the lungs demonstrate relatively homogeneous radiotracer activity on ventilation and perfusion sequences. IMPRESSION: Mismatch perfusion defect within the right upper lobe places this patient as having an i ntermediate probability for a pulmonary embolus
[2019-10-17] MEDS ORDERED: RIVAROXABAN 10 MG TABLET PO SCH (09:00)
[2019-10-17] MEDS ORDERED: DORZOLAMIDE 2% OPTH (10 ML) EACH EYE SCH (09:00)
[2019-10-17] MEDS: NEBIVOLOL HCL 5 MG TAB PO SCH (09:00)
[2019-10-17] MEDS: CEFTRIAXONE/SWI 1gm 1 GM/10 ML SYR IVP SCH ×2 (09:52→20:43)
[2019-10-17] MEDS ORDERED: PROMETHAZINE 25 MG TABLET PO PRN (12:03)
--- NOTE | 2019-10-17 12:55 | RAD REPORT ---
EXAM DESCRIPTION: US - Renal Ultrasound-Complete - 10/17/2019 12:45 pm CLINICAL HISTORY: Renal Failure Flank pain COMPARISON: Renal Ultrasound-Complete dated 12/07/2017 FINDINGS: Both kidneys are normal in size, shape and echotexture. Small benign cortical renal cysts bilaterally. The right kidney measures 11.0 x 4.4 cm. No hydronephrosis, focal mass or perinephric fluid. The left kidney measures 11.0 x 4.6 cm. No hydronephrosis, focal mass or perinephric fluid. The urinary bladder is incompletely distended without gross abnormality seen. IMPRESSION: Benign renal cysts bilaterally, otherwise unremarkable study.
[2019-10-17] MEDS ORDERED: NA CHLORIDE 0.9% 250 ML ONE (13:18)
[2019-10-17] MEDS: NACHLORIDE 0.45% 1,000 ML with NA BICARB 8.4% 75 MEQ IV SCH ×4 (13:20→18:43)
[2019-10-17] MEDS ORDERED: SOD FERRIC GLUC COMPLX/SUCROSE 250 MG in NA CHLORIDE 0.9% 250 ML IV SCH (14:00)
[2019-10-17] MEDS ORDERED: HEPARIN/D5W 25,000 UNIT/500 ML BAG IV SCH (14:00)
--- NOTE | 2019-10-17 15:45 | CON ---
Date of Consultation: 10/17/2019 Consulting Physician: Esteban Jessu MD Reason For Consultation: Elevated BUN and creatinine, fluid management. History Of Present Illness: This is a pleasant 73-year-old female with significant past medical history of diabetes diagnosed in 2015, hypertension, hyperlipidemia, anemia with previous admission of anemia and required transfusion. The patient came in with shortness of breath, leg swelling for the last 2 weeks. Primary workup showed bilateral DVT. For that reason, the patient was admitted. Primary workup for the patient showed elevated BUN and creatinine, creatinine 3.3 with GFR of 14. For that reason, we have been consulted. According to the patient, the patient has been taking ibuprofen 400 mg every 4-6 hours for the last 2 weeks on a regular basis. The patient denied any IV contrast. Reviewing the record, the patient back in January 2019 has creatinine 1.2, GFR of 42. The patient is on her home medication. The patient was also on metformin, but there is no HELEN inhibitor or ARB. The patient on acetazolamide also. Overnight because of the acidosis, we started the patient on bicarb drip. Creatinine improved from 3.3 to 3.1. The patient is still having good urine output. Past Medical History: Include: 1. Hypertension. 2. Diabetes, no neuropathy, no retinopathy, well-controlled. 3. Currently, DVT. Allergies: TO PAMIDRONATE , CELEBREX AND CODEINE. Home Medications: Include Bystolic, eye drops, acetazolamide, Xarelto, promethazine, gabapentin, atorvastatin, metformin, hydrocodone. Current Medications: In the hospital include ceftriaxone, insulin, Bystolic, Xarelto, sodium bicarb drip. Past Surgical History: Knee surgery. Family History: Positive for hypertension. Social History: Denies smoking, denies drinking, denies drug abuse. Review of Systems: Head and Neck: No red eye. No ear pain. GI: No nausea, no vomiting. : No polyuria, no dysuria, no hematuria. CONTACT CLERK: No vaginal discharge. Respiratory: Has shortness of breath. Cardiovascular: Has leg swelling. Endocrine: No polydipsia. Skin: No rash. Neuro: No neuropathy. Musculoskeletal: Has swelling in the leg with edema. Physical Examination: Vital Signs: When I saw the patient, blood pressure 103/44, pulse of 78, afebrile. Chest: Clear to auscultation. Heart: S1, S2. Regular. Abdomen: Soft, nontender. Extremities: +2 edema bilateral. Scar on the right knee. Neurologic: Alert and oriented x3. Nonfocal. Laboratory Data: Sodium 135, potassium 4.5, bicarb 15, chloride 108, BUN 55, creatinine 3.1, calcium 8.3, uric acid 8.1, phos 5.3, iron saturation of 4.2, ferritin of 53, albumin of 3.3. Vitamin D still pending. PTH 196, folate 4.3. WBC 9.3, H and H 6.9/22.6, platelets 139. ABG; pH 7.24, CO2 30, O2 111, base access -13. Urinalysis; specific gravity of 1.010, PC ratio is 0.6. Serology still pending. Renal ultrasound still not done. Venous Doppler, bilateral lower extremities. Assessment And Plan: 1. Acute kidney injury secondary to nonsteroidal use, nonoliguric with acidosis and without hyperkalemia. Given the presence of bilateral lower extremity deep venous thrombosis, even though the urinalysis did not show any active sediment, we will need to rule out any autoimmune disease and especially with the presence of significant anemia, hemolysis needs to be ruled out as a presentation of any hypercoagulopathy or intravascular hemolysis. I going to go ahead and send for full serology. We will send for protein C and S and antiphospholipid with anticardiolipin and we will follow up. I agree with holding the nonsteroid for the time being. I spoke with the patient that if kidney function continues to decline, the patient may need to be initiated on temporary renal replacement therapy. Anyhow, we do not see the need for it currently given the fact that the acidosis is being managed with bicarb drip and I do not see any hyperkalemia or any uremic symptoms. 2. Hypertension, controlled, optimal. We will monitor the patient. 3. Deep venous thrombosis, as by primary. Continue anticoagulation. The patient had developed deep venous thrombosis on the Xarelto. I will rather hold Xarelto and start the patient on heparin drip. Especially, if kidney function continue to decline, the patient may need kidney biopsy. 4. Acidosis. High anion gap metabolic acidosis secondary to renal failure. Continue bicarb drip for the time being. 5. Hypertension, as above. 6. Diabetes, as by primary. 7. Anemia of iron deficiency anemia. With the presence as I mentioned of severe anemia and renal failure, light chain disease needs to be ruled out and with the thrombocytopenia and bilateral deep venous thrombosis, the presentation of systemic lupus erythematosus needs to be ruled out. We will follow up. I am going to start the patient on IV iron for the time being. SAKINA Voice ID: [id number] Report ID: [id number] ALICE
--- NOTE | 2019-10-17 15:45 | CON ---
Date of Consultation: 10/17/2019 Reason For Consultation: Evaluation of cardiac function, rule out heart failure. History Of Present Illness: A 73-year-old female presented to the emergency room due to generalized weakness. She as per her report just could not go anymore and very weak, gets tired easily, and shor t of breath with orthopnea and lower extremity edema, worse on the right comparing to the left. She denies having any chest pain and she has lower extremity edema, worse on the right as above. No naus ea, vomiting, or diarrhea. She has been having mild cough. No fever and no other complaints. Past Medical History: Significant for diabetes, pulmonary embolus, hypertension, obesity. Medications: Refer to reconciliation sheet for detailed list. Allergies: CODEINE, BRIMONIDINE, AND CELEBREX. Family History: No premature coronary artery disease or cancer. Social History: Does not smoke or drink. Does not use any drugs. Review of Systems: All systems reviewed and they were negative except for mentioned in the HPI. Physical Examination: Vital Signs: Temperature is 97.2, pulse 78, breathing at 18, blood pressure is 111/55, saturating 10 0% on room air. General: Pleasant elderly female, in no apparent distress. Head and Neck: Pupils are equal and reactive to light. Intact eye movements. No JVD. No cervical lymphadenopathy. Neck: Supple. Thyroid is not enlarged. Lungs: Clear to auscultation bilaterally. No rhonchi, rales, or crackles. No accessory muscle use. Heart: Regular rate and rhythm. No extra sounds. Abdomen: Soft, nontender. Bowel sounds positive. No organomegaly. No masses or hernia. No rigidi ty or rebound. Extremities: Edema bilaterally, worse on the right. No clubbing or cyanosis. Skin: No rash. Neurologic: Alert, awake, oriented x3. No acute focal deficits appreciated. Investigations: Creatinine 3.1, sodium 135. Hemoglobin 8.5, white blood cell count 15.2, platelet c ount 175. Assessment And Plan: 1.Shortness of breath with orthopnea, lower extremity edema. Definitely, this could be cardiac in s ource; however, this patient has a pulmonary embolism with extensive bilateral deep vein thromboses. I recommend to obtain echocardiogram and then to further evaluate the cardiac function in addition t o the anticoagulation. Further recommendation will follow based on the echocardiogram findings. 2.Bilateral deep vein thromboses and pulmonary embolism. The patient is appropriately anticoagulate d and hemodynamically clinically stable. Obtain echocardiogram. SR/MODL Voice ID: [id number] Report ID: [id number]
[2019-10-17 19:07] LABS: Protime INR 2.15
[2019-10-17 19:42] LABS: Absolute Lymphocytes (CBC) 2.5 K/uL (0.7-4.9); Basophils % 0.8 % (0-1.3); Hematocrit 25.3 % (36.0-45.0); Lymphocytes % 27.6 % (15.3-44.8); MPV 9.6 fL (7.6-11.3); RBC Red Blood Cell Count 3.39 M/uL (3.86-4.86)
[2019-10-17] MEDS ORDERED: HEPARIN 5000 UNIT/ML 1 ML VIAL ONE (20:33)
[2019-10-17] MEDS: ACETAMINOPHEN 500 MG TAB PO PRN (20:42)
[2019-10-17] MEDS: [UNRECOGNIZED DRUG - OTHER] EACH EYE SCH (20:43)
[2019-10-17] MEDS: TIMOLOL MALEAT EACH EYE SCH (20:43)
[2019-10-17] MEDS: DORZOLAMIDE HCL EACH EYE SCH (20:43)
[2019-10-17] MEDS ORDERED: BIMATOPROST OPHTH DROPS/2.5 ML BTL OPTH SCH (21:00)
[2019-10-17] MEDS ORDERED: BIMATOPROST RIGHT EYE SCH (21:00)
[2019-10-17 21:05] LABS: Rheumatoid Factor NEG (NEG)
[2019-10-18 00:51] LABS: Hematocrit 25.5 % (36.0-45.0)
[2019-10-18] MEDS: NACHLORIDE 0.45% 1,000 ML with NA BICARB 8.4% 75 MEQ IV SCH ×2 (02:52)
[2019-10-18 05:33] LABS: MPV 9.2 fL (7.6-11.3)
[2019-10-18 05:40] LABS: Albumin 2.8 g/dL (3.4-5.0)
[2019-10-18] MEDS ORDERED: NACHLORIDE 0.45% 1,000 ML with NA BICARB 8.4% 100 MEQ IV SCH ×6 (06:03→21:00)
[2019-10-18 06:10] LABS: Platelet Estimate ADEQ
[2019-10-18] MEDS ORDERED: NACHLORIDE 0.45% 1,000 ML IV ONE ×2 (06:17→21:52)
[2019-10-18] MEDS ORDERED: SODIUM BICARB 50 MEQ/50ML VIAL ONE ×2 (06:27→21:42)
[2019-10-18] MEDS: INSULIN -REGULAR HUMAN 50 UNIT/0.5 ML ML SQ SCH ×4 (07:30→21:00)
[2019-10-18] MEDS: CEFTRIAXONE/SWI 1gm 1 GM/10 ML SYR IVP SCH (08:55)
[2019-10-18] MEDS: DORZOLAMIDE HCL EACH EYE SCH ×2 (08:57→21:00)
[2019-10-18] MEDS: NEBIVOLOL HCL 5 MG TAB PO SCH (08:57)
[2019-10-18] MEDS: [UNRECOGNIZED DRUG - OTHER] EACH EYE SCH ×2 (08:57→21:00)
[2019-10-18] MEDS: TIMOLOL MALEAT EACH EYE SCH ×2 (08:57→21:00)
[2019-10-18] MEDS ORDERED: RIVAROXABAN 20 MG TABLET PO SCH (09:00)
[2019-10-18] MEDS ORDERED: NEBIVOLOL HCL 5 MG TAB PO SCH (09:00)
[2019-10-18] MEDS ORDERED: SODIUM BICARB 50 MEQ/50ML VIAL IV ONE (09:09)
[2019-10-18] MEDS ORDERED: D5W 1,000 ML with NA BICARB 8.4% 150 MEQ IV SCH ×2 (10:00)
[2019-10-18] MEDS: APIXABAN 5 MG TABLET PO SCH ×2 (10:12→20:59)
--- NOTE | 2019-10-18 11:43 | P.CNS ---
Date of Consult: 10/18/19 Reason for Consult: DVT and pulmonary embolism Chief Complaint: Shortness of breath History of Present Illness: Patient is 73 years of age with a history of pulmonary embolism was treated for about an year became acutely short of breath complaining of swelling of for right leg and was found to have DVT with PE she is doing well no new complaints denies any symptoms of hickman virus Allergies brimonidine tartrate [From Alphagan P] Allergy (Unknown, Verified 07/03/17 14:51) Hives celecoxib [From Celebrex] Allergy (Unknown, Verified 07/03/17 14:51) Hives codeine Allergy (Unknown, Verified 07/03/17 14:51) Hives Home Medications: Gabapentin [Neurontin*] 900 mg PO BEDTIME 01/14/13 Metformin HCl [Glucophage*] 1,000 mg PO BID 01/14/13 Rivaroxaban [Xarelto] 20 mg PO DAILY 01/14/13 Atorvastatin Calcium 40 mg PO BEDTIME 12/25/15 acetaZOLAMIDE [Diamox] 250 mg PO BID 12/25/15 Hydrocodone Bit/Acetaminophen [Hydrocodon-Acetaminophn 10-325] 1 tab PO Q6H PRN 10/18/18 Promethazine HCl 25 mg PO Q4H PRN 10/18/18 Bimatoprost [Lumigan Opthalmic Drops] 1 gtt RIGHT EYE BEDTIME 10/16/19 Dorzolamide HCl/Timolol Maleat [Dorzolamide-Timolol Eye Drops] 1 gtt EACH EYE BID 10/16/19 Nebivolol HCl [Bystolic] 5 mg PO DAILY 10/16/19 - Past Medical/Surgical History Diabetic: Yes -: hepatitis B -: depression -: hyperlipidemia -: diabetes -: neurovascular glaucoma -: pulmonary embolism -: hypertension -: HYPERLIPIDEMIA -: Glaucoma -: Right KNEE REPLACEMENT -: HIP ARTHROPLASTY - Bilateral -: HYSTERECTOMY -: D&C -: Tubal Ligation -: Lumbar laminectomy -: -: Cataract Surgery bilateral - Family History Father Medical History: Cancer Mother Medical History: Heart disease - Social History Smoking Status: Former smoker Alcohol use: No CD- Drugs: Yes Caffeine use: No Review of Systems 10-point ROS is otherwise unremarkable Physical Examination Temp Pulse Resp BP Pulse Ox 97.4 F 86 18 121/50 L 99 10/18/19 08:00 10/18/19 08:57 10/18/19 08:00 10/18/19 08:57 10/18/19 08:00 General: Alert, Oriented x3 HEENT: Atraumatic Neck: Supple Respiratory: Clear to auscultation bilaterally Cardiovascular: No edema, Regular rate/rhythm - Problems (1) Deep vein thrombosis (DVT) or pulmonary embolism associated with estrogen- containing hormonal contraception Current Visit: Yes Status: Acute Plan: Patient is 73 years of age admitted with DVT and pulmonary embolism this is recurrent she is clinically doing much better patient this time will need lifelong anticoagulation appears to have chronic renal failure with mild acidosis recommend change to Eliquis for dose 10 mg twice a day for 10 days then 5 mg twice a day for possible indefinite. May be able to reduce the dose to 2.5 mg twice a day after 6 months depending upon the clinical situation vital signs stable diagnostic data all reviewed chest x-ray shows intermediate probability possible right upper lobe pulmonary embolus on the V/Q scan
[2019-10-18 13:46] LABS: Potassium 3.6 mmol/L (3.5-5.1)
[2019-10-18] MEDS: ACETAMINOPHEN 500 MG TAB PO PRN (17:38)
--- NOTE | 2019-10-18 19:33 | PN ---
Date of Progress Note: 10/17/2019 The patient is much more coherent today. She states she has been taking her medicine, although she d oes not recall some of her history in regard to why she was on Xarelto and this has been keeping with somewhat of a memory problem, which she has had over the past few years, possibly progressive. Cortes dony, she is more orientated, much more alert and that eating, tolerating fluids. Her biggest complai nt today is exertional dyspnea, possibly secondary to combination of the anemia and the lung etiology . Awaiting results of the V/Q scan and Nephrology has seen her in this institute, heparin drip, and Cardiology evaluated as well. Awaiting Pulmonary consultation. HR/MODL Voice ID: [id number] Report ID: [id number]
--- NOTE | 2019-10-18 19:36 | HP ---
Date of Admission: 10/16/2019 Chief Complaint: Confusion, fatigue, shortness of breath. History Of Present Illness: The patient presented to the emergency room with the above outlined symp toms. Although, it is difficult to get any history from her as she was disoriented and confused. A workup was done and included DVTs and possible infiltrate in the lung. She obviously required inpati ent treatment and was therefore admitted. Lab workup also revealed a creatinine of over [address] available one was normal approximately 6 months ago, so the diagnosis of acute renal failure was a lso made as well as some mild anemia. The patient states that she does have some swelling of her leg s bilaterally over the last couple of days. She also stated she has UTI, which necessitated hospital ization in the past. Past History: Past history is significant for PEs that she had a number of years ago postoperatively , has been on Coumadin and then switched over to Xarelto when it became available. She states that t he possibility exists that she was not taking her medicine as supposed to be over the past couple of days, but she was unsure of that. She also has a history of NIDDM, which she states has been in good control. The patient had hip replacement surgery about 2 years ago and actually tolerated that proc edure well. About a year ago, she was hospitalized with somewhat similar symptoms to be present and low hemoglobin, which required 2 units of blood. She was stabilized at discharge and saw gastroenter ologist for possible scoping. She is unsure of the results. Significant is the patient has told dustin avila in the emergency room, she had been taking some anti-inflammatory, although she denied this whe n I asked her. Social History: Nonsmoker, nondrinker. Family History: Noncontributory. Physical Examination: General: The patient is an obese elderly, somewhat confused female. Vital signs: Stable. Head and Neck: Normocephalic. Pupils equal and reactive to light and accommodation. Fundi negative . Trachea midline. Thyroid not palpable. ENT: Negative. Chest: Clear. Cardiovascular: PMI in the midclavicular line. Heart: Sounds normal. Peripheral pulses present and equal bilaterally. Abdomen: Obese. No organomegaly. Bowel sounds present. Extremities: Bilateral edema to the lower extremities, tender in the calf areas and the thigh equall y. Rectal: Deferred. Pelvic: Deferred. Impression: Acute deep vein thrombosis; possible pulmonary embolism; possible pneumonitis; non-insul in-dependent diabetes mellitus, good control; hypertension, good control; altered mental status; anem ia of unknown etiology. Plan: The patient will be admitted to be transfused accordingly. Consultation obtained with Nephrol ogy, Cardiology, and Pulmonology. The patient is obviously at least partial started on Xarelto as me ntioned, it is not sure whether she is taking the medicine or not. She was started on some IV antibi otics as well until her status is more clear, still which etiology is causing the most problems, PE a nd/or basilar pneumonitis. HR/MODL Voice ID: [id number]
[2019-10-18 21:06] LABS: Potassium 3.7 mmol/L (3.5-5.1)
[2019-10-18] MEDS ORDERED: CODEINE 30MG/APAP 300MG TAB PO PRN (21:27)
[2019-10-18] MEDS ORDERED: D5W 0 ML IV ONE (21:43)
[2019-10-18] MEDS: ZOLPIDEM TARTRATE 10 MG TABLET PO PRN (22:55)
[2019-10-18] MEDS: HYDROCODONE/APAP 10/325 TAB PO PRN (23:27)
--- NOTE | 2019-10-18 23:50 | PN ---
Date of Progress Note: 10/18/2019 Chief Complaint: Acute kidney injury, severe nonoliguric, associated with metabolic acidosis. Subjective: The patient was started on bicarbonate drip and bicarbonate level is somewhat improving. The patient has chronic kidney disease stage 3. Baseline creatinine level 1.2 and GFR was 42 when blood work was obtained last year in January. The patient came to the hospital because of generaliz ed weakness. She was short of breath and she was complaining of leg edema, progressively worse over last 2 weeks. The patient is a 73-year-old female with significant past medical history, was diagnos ed with diabetes mellitus back in 2014, has hypertension, hyperlipidemia, anemia, and previous admiss ion for acute anemia, which was treated with transfusion. The patient was treated with HELEN inhibitor and likely this was a culprit for severe acute kidney injury with prerenal azotemia. The patient re cass nonoliguric. She did not want to start dialysis. The patient was taken off metformin and prev iously was taking acetazolamide, which was stopped because of metabolic acidosis. The patient did no t want to start dialysis to treat metabolic acidosis and she was started on IV bicarbonate drip, dose was increased today for gradual improvement of metabolic acidosis. Review of Systems: Denies chest pain or palpitation. Physical Examination: Lungs: Diminished breath sounds at bases. Heart: S1, S2. Abdomen: Soft, benign. Extremities: Edema present in both legs. Blood Work: Hemoglobin 8.1, WBC 9.2, platelet count is 162,000. Sodium 139; potassium 3.6; chloride 111; CO2 19, it improved from 12; BUN 42, improved from 54; creatinine 1.91, improved from 3.31; BUN on admission was ranging up to 55 and 48; glucose 206; calcium 8.1. This morning, the patient had s odium 140, potassium 4.4, chloride 114, CO2 12, BUN 54, creatinine 2.07, glucose 107, calcium 8, phos phorus 4. Impression And Plan: 1.Acute kidney injury. Anion gap is in acceptable range today. Metabolic acidosis has been treated with sodium bicarbonate drip. The patient has multiple medical problems including history of diabet es. She is not a candidate for metformin in the future. 2.Acute kidney injury due to prerenal azotemia. The patient will continue hydration. Plan is to ti trate down sodium bicarbonate drip. Bicarbonate has improved significantly from 12 to 19. 3.Hypertension. Continue blood pressure medication and hold blood pressure medication if systolic b lood pressure is below 110. 4.Diabetes mellitus. Monitor hemoglobin A1c, glycemia. Adjust insulin. Plan is to screen for prot einuria. Workup will be ordered for nephritis if renal function does not improve with IV fluids. GRACY/ZABRINA Voice ID: [id number] Report ID: [id number]
[2019-10-19 06:05] LABS: Absolute Lymphocytes (CBC) 2.7 K/uL (0.7-4.9); Basophils % 1.4 % (0-1.3); RBC Red Blood Cell Count 3.38 M/uL (3.86-4.86)
[2019-10-19 06:31] LABS: Albumin 2.6 g/dL (3.4-5.0); Bilirubin Total 0.4 mg/dL (0.2-1.0); Phosphorus 3.1 mg/dL (2.5-4.9); Potassium 4.1 mmol/L (3.5-5.1); Protein, Total 6.5 g/dL (6.4-8.2)
[2019-10-19] MEDS: INSULIN -REGULAR HUMAN 50 UNIT/0.5 ML ML SQ SCH ×4 (07:30→20:18)
[2019-10-19] MEDS: [UNRECOGNIZED DRUG - OTHER] EACH EYE SCH ×2 (08:59→20:17)
[2019-10-19] MEDS: DORZOLAMIDE HCL EACH EYE SCH ×2 (08:59→20:17)
[2019-10-19] MEDS: TIMOLOL MALEAT EACH EYE SCH ×2 (08:59→20:17)
[2019-10-19] MEDS: APIXABAN 5 MG TABLET PO SCH ×2 (09:01→20:17)
[2019-10-19] MEDS: NEBIVOLOL HCL 5 MG TAB PO SCH (09:02)
[2019-10-19 10:40] LABS: Anisocytosis 1+; Blood Morphology Comment NOTED (NOT SEEN); Platelet Estimate ADEQ; Urine White Blood Cell Casts OK
[2019-10-19 10:41] LABS: Ovalocytes 1+
--- NOTE | 2019-10-19 13:19 | P.DS ---
Admission Date: 10/16/19 Discharge Date: 10/19/19 Primary Care Provider: Dr. Jesus (I am covering for him today) Disposition: ROUTINE DISCHARGE Discharge Condition: FAIR Reason for Admission: Shortness of breath Consultations: Nephrology-Dr. Sarabia Cardiology-Dr. Sparks Pulmonary-Dr. Yañez Procedures: CT head: FINDINGS: No intracranial hemorrhage, hydrocephalus or extra-axial fluid collection.Mild brain atrophy.No areas of brain edema or evidence of midline shift. The paranasal sinuses and mastoids are clear. The calvarium is intact. IMPRESSION: No acute intracranial abnormality. V/Q scan: FINDINGS: A moderate peripheral defect is present within the right upper lobe on the perfusion images. The remainder of the lungs demonstrate relatively homogeneous radiotracer activity on ventilation and perfusion sequences. IMPRESSION: Mismatch perfusion defect within the right upper lobe places this patient as having an intermediate probability for a pulmonary embolus Renal US: FINDINGS: Both kidneys are normal in size, shape and echotexture. Small benign cortical renal cysts bilaterally. The right kidney measures 11.0 x 4.4 cm. No hydronephrosis, focal mass or perinephric fluid. The left kidney measures 11.0 x 4.6 cm. No hydronephrosis, focal mass or perinephric fluid. The urinary bladder is incompletely distended without gross abnormality seen. IMPRESSION: Benign renal cysts bilaterally, otherwise unremarkable study. Venous doppler: FINDINGS: Thrombus is present bilaterally from the level of the common femoral veins to the ankles. IMPRESSION: Extensive bilateral deep venous thrombosis from the level of the common femoral veins to the ankles. Medical Problem List: Fatigue, shortness of breast secondary to extensive bilateral DVT from the level of common femoral vein to the ankles with intermediate probability of pulmonary embolism based on V/Q scan Acute on chronic renal failure stage 4 with metabolic acidosis Toxic encephalopathy related to UTI, urine culture positive for E coli Diabetes mellitus type 2 Iron deficiency anemia, acute on chronic, requiring IV Iron Hypertension Hyperlipidemia Glaucoma Chronic pain Brief History of Present Illness: 73-year-old female presented to the emergency room with confusion, fatigue and shortness of breath. Patient was found to have DVT and possible PE to the long. Patient also presented with acute renal failure. Patient admitted for further evaluation. Hospital Course: Patient presented with fatigue, shortness of breath. This was related to extensive bilateral DVT from the level of common femoral vein to the ankles. The patient was further evaluated and found to have abnormal V/Q scan showing intermediate probability of pulmonary embolism. 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 PCP evaluated patient earlier. Patient found to be non compliant with her medication. Medication was restarted. Pulmonology was also consulted. Compliance addressed in detail. Pulmonology recommends to provide Eliquis 10 mg 1 pill twice daily for 7 days then 5 mg 1 pill twice daily. Recommend follow up with pulmonology in 1 week to monitor her progress. Patient will likely require Eliquis indefinitely. This can be further managed by pulmonology. Compliance addressed in detail with patient. Plan of care discussed with PCP who will follow up with the patient on Monday. Patient also had acute on chronic renal failure stage 4 with metabolic acidosis. Patient was given bicarb and IV fluids. This has improved. Nephrology was consulted to further address. Medications have been reviewed. At discharge metformin and Diamox have been discontinued as this may worsen her renal failure. Renal function has improved. At discharge recommend no further use of nonsteroidal anti-inflammatories. Recommend no further use 2 of metformin and Diamox. Recommend follow up with nephrology in 1-2 weeks to monitor her progress. Recommend to recheck lab-BMP in 1 week. Recommend future medications to be renally dosed. Patient had confusion likely toxic encephalopathy related to UTI. Urine culture was positive for E coli. At discharge patient will continue with Augmentin 500 mg 1 pill twice daily for 7 days. Recommend to recheck urine culture after that time to monitor resolution. UTI prevention will be provided. Patient with diabetes mellitus type 2. This has been well controlled. A1c obtained. Metformin has been discontinued due to her renal disease. Recommend to monitor her blood sugar at least twice daily. Recommend to maintain blood sugar less than 140 fasting and less than 200 after meals. Recommend follow up with PCP on Monday to further monitor and address. PCP will need to consider adding medication glimepiride in the future if blood sugar starts to increase. Otherwise she will continue with a diabetic diet. Patient with iron deficiency anemia. This is likely acute on chronic. Patient was given IV iron. At discharge will recommend to continue iron 325 mg 1 pill twice daily. Recommend to recheck lab-CBC in 1-2 weeks to monitor her progress. This can be further monitored and addressed by her PCP. Patient with hypertension. At discharge she will continue with diastolic 5 mg daily. Recommend to maintain blood pressure less 150/80. Further adjustment can be done by her PCP. Patient with hyper lipidemia. At discharge she will continue with her medication Lipitor 40 mg daily. Patient with chronic pain. At discharge she will continue with Neurontin 900 mg at bedtime and [place] 10/325 mg as directed and as needed for pain. Further adjustment can be done by her PCP. Patient with history of glaucoma. Patient will continue with her eyedrops. As recommended above, Diamox has been discontinued. This can be further monitored and addressed by her PCP and ophthalmology as an outpatient. Vital Signs/Physical Exam: Temp Pulse Resp BP Pulse Ox 96.7 F L 77 16 127/58 L 97 10/19/19 08:00 10/19/19 09:02 10/19/19 08:00 10/19/19 09:02 10/19/19 08:00 General: Alert, Cooperative HEENT: Atraumatic Neck: Supple Respiratory: Clear to auscultation bilaterally, Normal air movement Cardiovascular: Normal pulses, Regular rate/rhythm Gastrointestinal: Normal bowel sounds Neurological: Normal speech, Normal strength at 5/5 x4 extr, Normal tone, Normal affect Laboratory Data at Discharge: WBC 8.5 K/uL (4.3-10.9) 10/19/19 05:38 Hgb 8.0 g/dL (12.0-15.0) L 10/19/19 05:38 Hct 24.0 % (36.0-45.0) L 10/19/19 05:38 Plt Count 227 K/uL (152-406) D 10/19/19 05:38 PT 25.0 SECONDS (9.5-12.5) H 10/17/19 18:08 INR 2.15 10/17/19 18:08 APTT 38.2 SECONDS (24.3-36.9) H 10/18/19 08:43 Sodium 142 mmol/L (136-145) 10/19/19 05:38 Potassium 4.1 mmol/L (3.5-5.1) 10/19/19 05:38 BUN 38 mg/dL (7-18) H 10/19/19 05:38 Creatinine 1.53 mg/dL (0.55-1.3) H 10/19/19 05:38 Glucose 108 mg/dL (74-106) H 10/19/19 05:38 Uric Acid 8.1 mg/dL (2.6-6.0) H 10/17/19 04:48 Phosphorus 3.1 mg/dL (2.5-4.9) 10/19/19 05:38 Magnesium 2.1 mg/dL (1.8-2.4) D 10/16/19 11:35 Total Bilirubin 0.4 mg/dL (0.2-1.0) 10/19/19 05:38 AST 15 U/L (15-37) 10/19/19 05:38 ALT 8 U/L (12-78) L 10/19/19 05:38 Alkaline Phosphatase 62 U/L (45-117) 10/19/19 05:38 Home Medications: Gabapentin [Neurontin*] 900 mg PO BEDTIME 01/14/13 Atorvastatin Calcium 40 mg PO BEDTIME 12/25/15 Hydrocodone Bit/Acetaminophen [Hydrocodon-Acetaminophn 10-325] 1 tab PO Q6H PRN 10/18/18 Promethazine HCl 25 mg PO Q4H PRN 10/18/18 Bimatoprost [Lumigan Opthalmic Drops*] 1 gtt RIGHT EYE BEDTIME 10/16/19 Dorzolamide HCl/Timolol Maleat [Dorzolamide-Timolol Eye Drops] 1 gtt EACH EYE BID 10/16/19 Nebivolol HCl [Bystolic*] 5 mg PO DAILY 10/16/19 Apixaban [Eliquis] 5 mg PO BID #60 tablet 10/18/19 Amox/Clavulanate [Augmentin 500-125 mg Tab] 500 mg PO BID #14 tab 10/19/19 Ferrous Sulfate [Iron] 325 mg PO BID #60 tablet 10/19/19 New Medications: Amox/Clavulanate [Augmentin 500-125 mg Tab] 500 mg PO BID #14 tab Apixaban [Eliquis] 5 mg PO BID #60 tablet Ferrous Sulfate [Iron] 325 mg PO BID #60 tablet Patient Discharge Instructions: 1. Recommend follow up with PCP on Monday. 2. Patient presented with fatigue, shortness of breath. This was related to extensive bilateral DVT from the level of common femoral vein to the ankles. The patient was further evaluated and found to have abnormal V/Q scan showing intermediate probability of pulmonary embolism. 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 PCP evaluated patient earlier. Patient found to be non compliant with her medication. Medication was restarted. Pulmonology was also consulted. Compliance addressed in detail. Pulmonology recommends to provide Eliquis 10 mg 1 pill twice daily for 7 days then 5 mg 1 pill twice daily. Recommend follow up with pulmonology in 1 week to monitor her progress. Patient will likely require Eliquis indefinitely. This can be further managed by pulmonology. Compliance addressed in detail with patient. Plan of care discussed with PCP who will follow up with the patient on Monday. 3. Patient also had acute on chronic renal failure stage 4 with metabolic acidosis. Patient was given bicarb and IV fluids. This has improved. Nephrology was consulted to further address. Medications have been reviewed. At discharge metformin and Diamox have been discontinued as this may worsen her renal failure. Renal function has improved. At discharge recommend no further use of nonsteroidal anti-inflammatories. Recommend no further use 2 of metformin and Diamox. Recommend follow up with nephrology in 1-2 weeks to monitor her progress. Recommend to recheck lab-BMP in 1 week. Recommend future medications to be renally dosed. 4. Patient had confusion likely toxic encephalopathy related to UTI. Urine culture was positive for E coli. At discharge patient will continue with Augmentin 500 mg 1 pill twice daily for 7 days. Recommend to recheck urine culture after that time to monitor resolution. UTI prevention will be provided. 5. Patient with diabetes mellitus type 2. This has been well controlled. A1c obtained. Metformin has been discontinued due to her renal disease. Recommend to monitor her blood sugar at least twice daily. Recommend to maintain blood sugar less than 140 fasting and less than 200 after meals. Recommend follow up with PCP on Monday to further monitor and address. PCP will need to consider adding medication glimepiride in the future if blood sugar starts to increase. Otherwise she will continue with a diabetic diet. 6. Patient with iron deficiency anemia. This is likely acute on chronic. Patient was given IV iron. At discharge will recommend to continue iron 325 mg 1 pill twice daily. Recommend to recheck lab-CBC in 1-2 weeks to monitor her progress. This can be further monitored and addressed by her PCP. 7. Patient with hypertension. At discharge she will continue with diastolic 5 mg daily. Recommend to maintain blood pressure less 150/80. Further adjustment can be done by her PCP. 8. Patient with hyperlipidemia. At discharge she will continue with her medication Lipitor 40 mg daily. 9. Patient with chronic pain. At discharge she will continue with Neurontin 900 mg at bedtime and [place] 10/325 mg as directed and as needed for pain. Further adjustment can be done by her PCP. 10. Patient with history of glaucoma. Patient will continue with her eyedrops. As recommended above, Diamox has been discontinued. This can be further monitored and addressed by her PCP and ophthalmology as an outpatient. Diet: AHA Activity: Fall precautions Time spent managing pt's care (in minutes): 55
[2019-10-19] MEDS: AMOX/K CLAV 500 MG TAB PO SCH ×2 (14:06→20:17)
[2019-10-19 14:15] LABS: Potassium 4.3 mmol/L (3.5-5.1)
[2019-10-19] MEDS: HYDROCODONE/APAP 10/325 TAB PO PRN (17:32)
--- NOTE | 2019-10-19 18:55 | RAD REPORT ---
EXAM DESCRIPTION: US - Renal Ultrasound-Complete - 10/19/2019 6:43 pm CLINICAL HISTORY: arf on ckd Flank pain COMPARISON: Renal Ultrasound-Complete dated 10/17/2019 FINDINGS: Both kidneys are normal in size, shape and echotexture. Small benign renal cysts are present, largest measuring 3 cm superior left kidney. The right kidney measures 11.1 x 5.6 x 4.9 cm. No hydronephrosis, focal mass or perinephric fluid. The left kidney measures 9.6 x 5.2 x 4.7 cm. No hydronephrosis, focal mass or perinephric fluid. The urinary bladder is incompletely distended without gross abnormality seen. IMPRESSION: Benign bilateral renal cysts, otherwise negative study.
[2019-10-19] MEDS ORDERED: ATORVASTATIN 40 MG TAB PO SCH (21:00)
[2019-10-19] MEDS: ZOLPIDEM TARTRATE 10 MG TABLET PO PRN (21:37)
--- NOTE | 2019-10-19 23:46 | PN ---
Date of Progress Note: 10/19/2019 Chief Complaint: Acute kidney injury, severe, nonoliguric, associated with metabolic acidosis. Subjective: The patient was started on bicarbonate drip and bicarbonate level is improving. Bicarbo zhanna drip was weaned off and lab work was ordered to evaluate bicarbonate. The patient has history o f chronic kidney disease, stage 3, baseline creatinine 1.2. When she came to the hospital, she was f ound to have severely elevated BUN and creatinine, although she refused dialysis and the patient was started on IV fluids with bicarbonate drip as well to control azotemia and control metabolic acidosis . Anion gap was closing. The patient was instructed not to take metformin and she previously was ta daxa acetazolamide as ordered by tank furnace operator, although this medication was aggravating acidosis a s well as her prerenal azotemia was producing acidosis. The patient responded to IV fluids and BUN a nd creatinine are gradually improving. The patient did not require dialysis. Review of Systems: Denies PND, orthopnea. Physical Examination: Lungs: Diminished breath sounds at bases. Heart: S1, S2. Abdomen: Soft, benign. Extremities: Mild edema in both legs. Laboratory Data: BUN 42, improved from 54. Creatinine improved from 3.31 to 1.91. Impression And Plan: 1.Acute kidney injury. Anion gap is acceptable in the range today, improved. Metabolic acidosis is treated. Sodium bicarbonate was stopped. The patient is not a candidate for metformin in the futur e. Acetazolamide might aggravate metabolic acidosis. The patient will need to discuss with her opht halmologist. I discussed with Dr. Tricia riojas at length. 2.Acute kidney injury due to prerenal azotemia, nonoliguric acute tubular necrosis. The patient res ponded to IV fluids. Monitor electrolytes. The patient will have Elizabeth removed today. Monitor for any evidence of bladder issues with neurogenic bladder and urinary retention. 3.Hypertension. Continue blood pressure medication. 4.Diabetes mellitus. The patient will need to follow up with Nephrology outpatient for diabetic kid jefry disease. EB/MODL Voice ID: [id number] Report ID: [id number]
[2019-10-20 07:07] LABS: Albumin 2.9 g/dL (3.4-5.0); Phosphorus 3.3 mg/dL (2.5-4.9); Potassium 3.6 mmol/L (3.5-5.1)
[2019-10-20 07:27] LABS: Absolute Lymphocytes (CBC) 2.2 K/uL (0.7-4.9); Basophils % 1.1 % (0-1.3); Hematocrit 25.3 % (36.0-45.0); Lymphocytes % 30.6 % (15.3-44.8); MPV 8.9 fL (7.6-11.3); RBC Red Blood Cell Count 3.41 M/uL (3.86-4.86)
[2019-10-20] MEDS: INSULIN -REGULAR HUMAN 50 UNIT/0.5 ML ML SQ SCH (07:30)
[2019-10-20 07:57] VITALS: O2SAT 100
[2019-10-20] MEDS: NEBIVOLOL HCL 5 MG TAB PO SCH (08:35)
[2019-10-20] MEDS: AMOX/K CLAV 500 MG TAB PO SCH (08:35)
[2019-10-20] MEDS: APIXABAN 5 MG TABLET PO SCH (08:35)
[2019-10-20] MEDS: [UNRECOGNIZED DRUG - OTHER] EACH EYE SCH (09:00)
[2019-10-20] MEDS: DORZOLAMIDE HCL EACH EYE SCH (09:00)
[2019-10-20] MEDS: TIMOLOL MALEAT EACH EYE SCH (09:00)
[2019-10-20 09:25] VITALS: BP 133/67; TEMP 97.5
--- NOTE | 2019-10-20 22:48 | PN ---
Date of Progress Note: 10/20/2019 Chief Complaint: Acute kidney injury, severe nonoliguric, associated with metabolic acidosis in sett ing of hypovolemia Subjective: The patient has diabetic kidney disease, chronic kidney disease. She was taken off metf ormin. The patient was found to have metabolic acidosis, was treated with bicarbonate drip. She ref used to have dialysis. She responded to IV fluids and BUN and creatinine gradually improved. Review of Systems: Denies PND or orthopnea. Physical Examination: General: Not in acute distress. Lungs: Clear to auscultation bilaterally. Heart: S1, S2. Abdomen: Soft, benign. Extremities: Mild edema in both legs. Laboratory Data: Sodium 142, potassium 3.6, chloride 112, CO2 22, BUN 31, creatinine 1.37, glucose 1 22, calcium 8.7, and phosphorus 3.3. Impression And Plan: 1.Acute kidney injury, nonoliguric, improving with IV fluids. The patient responded to IV fluids an d bicarbonate drip. The patient was weaned off bicarbonate drip. The patient is not a candidate for metformin. 2.Renal ultrasound showed benign small renal cyst measuring 3 cm in superior left kidney, right kidn ey 11.1 cm in length and left kidney 9.6 cm in length. No hydronephrosis. No perinephric fluid. 3.Hypertension. Blood pressure in good control. Continue current medication. 4.Metabolic acidosis, treated with bicarbonate drip, improved. 5.Acute kidney injury, severe, with prerenal azotemia and nonoliguric acute tubular necrosis. Renal function is improving. Elizabeth catheter was removed and the patient was monitored for any evidence of urinary retention. EB/MODL Voice ID: [id number] Report ID: [id number]
[2019-10-21 11:12] LABS: Protein C Antigen 93 % (70-140)
--- NOTE | 2019-10-21 14:16 | PN ---
Date of Progress Note: 10/18/2019 Hospital Course: The patient seems status quo. However, her mental status is somewhat obscured by h er memory. She states that she did not think she was taken OTC NSAIDs and she is still not sure abou t the Xarelto, so try and check with the pharmacy and does not see if this can be clarified because o bviously makes some difference, told we go from here as far as anticoagulation, she is currently on h eparin drip. Creatinine is improved and hemoglobin is improved, but also has slight increase in her acidosis, so we will increase her bicarb and repeat blood work later during the day. Depending on th e status further anticoagulation is given in term to some extent along she will be hospitalized for h eparin and admitted to a longterm use of a PICC line also be a possibility. No stool gua iac has been obtained. She has not had a bowel movement. HR/MODL Voice ID: [id number] Report ID: [id number]
[2019-10-22 19:26] LABS: Anti-Cardiolipin IgA Antibody <11 APL (<=11)
[2019-10-23 05:15] LABS: HBsAG Nonreactive (Nonreactive)
[2019-10-23 14:40] LABS: Anti-Cardiolipin IgA Antibody <11 APL (<=11)
[2019-10-23 22:16] LABS: Albumin, (SPE) 3.2 g/dL (3.8-4.8); Alpha-1-Globulins 0.6 g/dL (0.2-0.3); Gamma Globulins 0.7 g/dL (0.8-1.7); INTERPRETATION REPORT
[2019-10-24 12:28] LABS: Vitamin D 1,25-Dihydroxy Total 22 pg/mL (18-72); Vitamin D,1,25-OH2, D2 <8 pg/mL
[2019-10-26 16:59] LABS: Hepatitis C Virus RNA (PCR)log <1.18 log IU/mL
== END 2019-10-20 09:49 | disposition home or self-care (01) | DRG 299 ==
LOC: ER 11:03 → 2ND 13:48
PROVIDERS: ADMIT Family Medicine; ATTEND Family Medicine
DX: I82.413 Acute embolism and thrombosis of femoral vein, bilateral (principal); N17.0 Acute kidney failure with tubular necrosis; I26.99 Other pulmonary embolism without acute cor pulmonale; G92 Toxic encephalopathy; E87.2 Acidosis; N18.4 Chronic kidney disease, stage 4 (severe); N39.0 Urinary tract infection, site not specified; Z88.5 Allergy status to narcotic agent; Z88.8 Allergy status to other drugs, medicaments and biological substances; Z79.01 Long term (current) use of anticoagulants; Z79.899 Other long term (current) drug therapy; Z79.84 Long term (current) use of oral hypoglycemic drugs; E78.5 Hyperlipidemia, unspecified; Z86.711 Personal history of pulmonary embolism; Z98.51 Tubal ligation status; T45.515A Adverse effect of anticoagulants, initial encounter; D50.9 Iron deficiency anemia, unspecified; I12.9 Hypertensive chronic kidney disease with stage 1 through stage 4 chronic kidney disease, or unspecified chronic kidney disease; E11.22 Type 2 diabetes mellitus with diabetic chronic kidney disease; Z96.651 Presence of right artificial knee joint; Z96.643 Presence of artificial hip joint, bilateral; Z90.710 Acquired absence of both cervix and uterus; Z87.891 Personal history of nicotine dependence; Z20.828 Contact with and (suspected) exposure to other viral communicable diseases; R06.02 Shortness of breath; N28.1 Cyst of kidney, acquired; B96.20 Unspecified Escherichia coli [E. coli] as the cause of diseases classified elsewhere; E11.39 Type 2 diabetes mellitus with other diabetic ophthalmic complication; H40.9 Unspecified glaucoma; G89.29 Other chronic pain; Z91.14 Patient's other noncompliance with medication regimen
CPT/HCPCS: 36415; 36430; 51702; 70450; 71045; 76770; 78582; 80048; 80053; 80069; 80076; 81003; 82550; 82570; 82607; 82652; 82728; 82746; 82805; 82947; 83010; 83036; 83520; 83540; 83615; 83735; 83970; 84156; 84165; 84466; 84484; 84550; 85014; 85018; 85025; 85044; 85049; 85302; 85610; 85730; 86021; 86038; 86147; 86160; 86225; 86317; 86430; 86704; 86706; 86850; 86900; 86901; 87340; 87522; 93005; 93970; 96365; 96366; 96375; 99285; A9540; A9558; J0696; J1644; J2916; J7030; J7050; P9016; U0002

== ENCOUNTER 2023-02-06 11:08 | Emergency (ER) | payer OTHER, BC ==
--- OUTSIDE RECORDS SUMMARY | 2023-02-06 11:12 | XMS REPORT | Continuity of Care Document ---
:1945 Author Organization [facility] t Address [address] [facility] [address] [place] [address] Care Team Providers Name Role Phone Mukul Jesus Primary Care Physician ANABEL OLIVER Attending Clinician Unavailable Anabel Oliver DO Attending Clinician [email or web address] Attending Clinician Unavailable ALEX MAYA Attending Clinician Unavailable Nurse, Adc Pob Immunization Attending Clinician Unavailable Chalo Miramontes DO Attending Clinician CHALO MIRAMONTES Attending Clinician Unavailable Doctor Unassigned, [place] Attending Clinician Unavailable BRICE MONGE Attending Clinician Unavailable Kellie Goins MD Attending Clinician KELLIE GOINS Attending Clinician Unavailable , [facility] Vascular Room 1 - Attending Clinician Unavailable Ray DAWSON, Sruthi Melvin Attending Clinician KATHERINE BARTLETT Attending Clinician Unavailable Katherine Bartlett MD Attending Clinician Jeanne Rodriguez Attending Clinician Pc, Ad[facility] Echo Room 1 - Attending Clinician Unavailable [email or web address] Admitting Clinician Unavailable MUKUL JESUS Admitting Clinician Unavailable Payers Payer Name Policy Type Policy Number Effective Date Expiration Date Gus almanza MEDICARE PART A [id number] 2011 \\T\\ B 00:00:00 JÚNIOR SINGER [id number] 2013 00:00:00 MEDICARE EMILIANO REYNOSO [id number] 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, one hip, 00:00: Hospit a left left 00 l Kidney Kidney Problem Active Common stone stones [facility] SI - Stress Problem Active Common Stress incontinen [facility] incontinen [facility] No known No known Disease Unive rs active active ity of problems problems [facility] Allergies, Adverse Reactions, Alerts Allergy Allergy Status Severity Reaction(s) Onset Inactive Treating Comm ents Source Name Type Date Date Clinician Alphagan Propensi Active Rash 2017-03 Univer s ty to 2-28 ity of adverse 00:00: [place] reaction 00 Medical Branch ALPHAGAN DRUG Active Rash 2017-03 Univers 2-28 ity of 00:00: [place] 00 Medical Branch CELECOXI DRUG Active Hallucinates 2017-03 [place] B INGREDI 2 ity of 00:00: [place] 00 Medical Branch CODEINE DRUG Active Hives 2017-03 Univers INGREDI 2-28 ity of 00:00: [place] 00 Medical Branch Celecoxi Propensi Active Hallucinatio 2017-03 Univers b ty to ns 2-28 ity of adverse 00:00: [place] reaction 00 Medical Branch Codeine Propensi Active Hives 2017-03 Univers ty to 2-28 ity of adverse 00:00: [place] reaction 00 Medical Branch codeine DA Active SV [facility] 3[facility]29 [place] 00:[facility] brimonid DA Active [facility] ine 3- [place] 00:00: [facility] CELEBREX DA Active SV 2018-0 [facility] 3-29 [place] 00:00: [facility]ope 00 [facility] Brimonid Propensi Active Eyes Method i ine ty to 04-27 st adverse 00:00: red Hospita reaction 00 l s to drug Celecoxi Propensi Active Rash Method i b ty to 04-27 st adverse 00:00: Hospita reaction 00 l s to drug Codeine Propensi Active Other (See nausea Met hodi ty to Comments) 04-27 adverse 00:00: Hospita reaction 00 l s to drug Social History Social Habit Start Date Stop Date Quantity Comments Source History of Tobacco Former Smoker Com mon Spirit - Use [facility] Sexual orientation [facility] Exposure to 2022-07-31 2022-08-10 Not sure University SARS-CoV-2 (event) 00:00:00 15:03:00 [facility] Tobacco use and 2019-11-11 2019-11-11 Smokeless Universit y of exposure 00:00:00 00:00:00 tobacco non-user [facility] History of Social 2018-02-01 2018-02-[address] function 00:00:00 00:00:00 Hospital Cigarettes smoked 2017-05-10 2017-05-[address] current (pack per 00:00:00 00:00:00 Hospita l day) - Reported Cigarette 2017-05-10 2017-05-10 [facility] pack-[facility] 00:00:00 00:00:00 Hospital Sex Assigned At [birth year] [facility] 00:00:[facility] 00:[facility]:00 Hospital Smoking Status Start Date Stop Date Source Unknown if ever smoked Universit y [facility] Ex-smoker 2019-11-11 00:00:00 2019-11-11 00:00:00 Universi ty [facility] Medications Ordered Filled Start Stop Current Ordering Indication Dosage Frequency Signature Comments Components Source Medication Medication Date Date Medication? Clinician (SIG) Name Name cefTRIAXone No 1000mg 1,000 mg, Univers (ROCEPHIN) 08-10 IV ity of 1,000 mg in 21:00: 21:45 [facility], [place] NaCl 0.9% 00 :00 ONCE, 1 Medical (NS) 100 mL dose, On Bran ch MINI-BAG 08/10/22 at 1600, Administer over 30 Minutes, 100 mL
Reas on for Anti-Infec tive: Documented Infection< br>Documen clark Infection Site: Urine<br&g t;Duration of Therapy: Other (see Comments) calcium 2022- No 1g 1 g, IV Univer s gluconate 1 08-10 05-24 Infusion, it y of g in NaCl 20:30: 20:36 at 100 [place] 50 mL 00 :00 mL/hr Medical (ISO-OSM) Administer Bran ch RTU IV over 30 infusion 1 Minutes, g ONCE, 1 dose, On Mon08/10/22 at 1530, Routine cefdinir 2022- No [id number] 300mg Take 1 Univers 300 mg 08-10 capsule by ity of capsule 00:00: 04:59 mouth [place] 00 :00 every 12 [facility] Branch hours for 7 days. furosemide 2020-0 Yes 20mg Take 20 mg U nivers 20 mg 8-24 by mouth ity of tablet 19:20: daily. [address] furosemide 2020-0 Yes 20mg Take 20 mg U nivers 20 mg 8-24 by mouth ity of tablet 19:20: daily. [address] furosemide 2020-0 Yes 20mg Take 20 mg U nivers 20 mg 8-24 by mouth ity of tablet 19:20: daily. [address] furosemide 2020-0 Yes 20mg Take 20 mg U nivers 20 mg 8-24 by mouth ity of tablet 19:20: daily. [address] furosemide 2020-0 Yes 20mg Take 20 mg U nivers 20 mg 8-24 by mouth ity of tablet 19:20: daily. [address] furosemide 2020-0 Yes 20mg Take 20 mg U nivers 20 mg 8-24 by mouth ity of tablet 19:20: daily. [address] furosemide 2020-0 Yes 20mg Take 20 mg U nivers 20 mg 8-24 by mouth ity of tablet 19:20: daily. [address] furosemide 2020-0 Yes 20mg Take 20 mg U nivers 20 mg 8-24 by mouth ity of tablet 19:20: daily. [address] furosemide 2020-0 Yes 20mg Take 20 mg U nivers 20 mg 8-24 by mouth ity of tablet 19:20: daily. [address] furosemide 2020-0 Yes 20mg Take 20 mg U nivers 20 mg 8-24 by mouth ity of tablet 19:20: daily. [address] furosemide 2020-0 Yes 20mg Take 20 mg U nivers 20 mg 8-24 by mouth ity of tablet 19:20: daily. [address] furosemide 2020-0 Yes 20mg Take 20 mg U nivers 20 mg 8-24 by mouth ity of tablet 19:20: daily. [address] furosemide 2020-0 Yes 20mg Take 20 mg U nivers 20 mg 8-24 by mouth ity of tablet 19:20: daily. [address] furosemide 2020-0 Yes 20mg Take 20 mg U nivers 20 mg 8-24 by mouth ity of tablet 19:20: daily. [address] Branch dorzolamide 2020-0 Yes 1[drp] 1 Drop 2 Univers -timoloL 8-24 (two) ity of 22.3-6.8 19:20: times [place] mg/mL 49 daily. Medical ophthalmic Branch drops dorzolamide 2020-0 Yes 1[drp] 1 Drop 2 Univers -timoloL 8-24 (two) ity of 22.3-6.8 19:20: times [place] mg/mL 49 daily. Medical ophthalmic Branch drops dorzolamide 2020-0 Yes 1[drp] 1 Drop 2 Univers -timoloL 8-24 (two) ity of 22.3-6.8 19:20: times [place] mg/mL 49 daily. Medical ophthalmic Branch drops dorzolamide 2020-0 Yes 1[drp] 1 Drop 2 Univers -timoloL 8-24 (two) ity of 22.3-6.8 19:20: times [place] mg/mL 49 daily. Medical ophthalmic Branch drops dorzolamide 2020-0 Yes 1[drp] 1 Drop 2 Univers -timoloL 8-24 (two) ity of 22.3-6.8 19:20: times [place] mg/mL 49 daily. Medical ophthalmic Branch drops dorzolamide 2020-0 Yes 1[drp] 1 Drop 2 Univers -timoloL 8-24 (two) ity of 22.3-6.8 19:20: times [place] mg/mL 49 daily. Medical ophthalmic Branch drops dorzolamide 2020-0 Yes 1[drp] 1 Drop 2 Univers -timoloL 8-24 (two) ity of 22.3-6.8 19:20: times [place] mg/mL 49 daily. Medical ophthalmic Branch drops dorzolamide 2020-0 Yes 1[drp] 1 Drop 2 Univers -timoloL 8-24 (two) ity of 22.3-6.8 19:20: times [place] mg/mL 49 daily. Medical ophthalmic Branch drops dorzolamide 2020-0 Yes 1[drp] 1 Drop 2 Univers -timoloL 8-24 (two) ity of 22.3-6.8 19:20: times [place] mg/mL 49 daily. Medical ophthalmic Branch drops dorzolamide 2020-0 Yes 1[drp] 1 Drop 2 Univers -timoloL 8-24 (two) ity of 22.3-6.8 19:20: times [place] mg/mL 49 daily. Medical ophthalmic Branch drops dorzolamide 2020-0 Yes 1[drp] 1 Drop 2 Univers -timoloL 8-24 (two) ity of 22.3-6.8 19:20: times [place] mg/mL 49 daily. Medical ophthalmic Branch drops dorzolamide 2020-0 Yes 1[drp] 1 Drop 2 Univers -timoloL 8-24 (two) ity of 22.3-6.8 19:20: times [place] mg/mL 49 daily. Medical ophthalmic Branch drops dorzolamide 2020-0 Yes 1[drp] 1 Drop 2 Univers -timoloL 8-24 (two) ity of 22.3-6.8 19:20: times [place] mg/mL 49 daily. Medical ophthalmic Branch drops dorzolamide 2020-0 Yes 1[drp] 1 Drop 2 Univers -timoloL 8-24 (two) ity of 22.3-6.8 19:20: times [place] mg/mL 49 daily. Medical ophthalmic Branch drops gabapentin 2020-0 Yes Take by Univ ers ER 300 mg 8-24 mouth ity of tablet, 19:19: daily. [place] extended 29 Medical release 24 Branch hr HYDROcodone 2020-0 Yes 1{tbl} Take 1 [facility] [place] -acetaminop 8-24 tablet by ity of hen 10-325 19:19: mouth [place] mg tablet 29 every 6 Medical (six) Branch hours as needed. bimatoprost 2020-[address] in [facility] [place] (LUMIGAN) 8-24 each eye ity of 0.01 % 19:19: at [place] ophthalmic 29 bedtime. Medic al drops Branch gabapentin 2020-0 Yes Take by Univ ers ER 300 mg 8-24 mouth ity of tablet, 19:19: daily. [place] extended 29 Medical release 24 Branch hr HYDROcodone 2020-0 Yes 1{tbl} Take 1 [place] -acetaminop 8-24 tablet by ity of hen 10-325 19:19: mouth [place] mg tablet 29 every 6 Medical (six) Branch hours as needed. bimatoprost 2020-[address] in [facility] [place] (LUMIGAN) 8-24 each eye ity of 0.01 % 19:19: at [place] ophthalmic 29 bedtime. Medic al drops Branch gabapentin 2020-0 Yes Take by Univ ers ER 300 mg 8-24 mouth ity of tablet, 19:19: daily. [place] extended 29 Medical release 24 Branch hr HYDROcodone 2020-0 Yes 1{tbl} Take 1 [place] -acetaminop 8-24 tablet by ity of hen 10-325 19:19: mouth [place] mg tablet 29 every 6 Medical (six) Branch hours as needed. bimatoprost 2020-[address] in [place] (LUMIGAN) 8-24 each eye ity of 0.01 % 19:19: at [place] ophthalmic 29 bedtime. Medic al drops Branch gabapentin 2020-0 Yes Take by Univ ers ER 300 mg 8-24 mouth ity of tablet, 19:19: daily. [place] extended 29 Medical release 24 Branch hr HYDROcodone 2020-0 Yes 1{tbl} Take 1 [place] -acetaminop 8-24 tablet by ity of hen 10-325 19:19: mouth [place] mg tablet 29 every 6 Medical (six) Branch hours as needed. bimatoprost 2020-[address] in [place] (LUMIGAN) 8-24 each eye ity of 0.01 % 19:19: at [place] ophthalmic 29 bedtime. Medic al drops Branch gabapentin 2020-0 Yes Take by Univ ers ER 300 mg 8-24 mouth ity of tablet, 19:19: daily. [place] extended 29 Medical release 24 Branch hr HYDROcodone 2020-0 Yes 1{tbl} Take 1 [place] -acetaminop 8-24 tablet by ity of hen 10-325 19:19: mouth [place] mg tablet 29 every 6 Medical (six) Branch hours as needed. bimatoprost 2020-[address] in [place] (LUMIGAN) 8-24 each eye ity of 0.01 % 19:19: at [place] ophthalmic 29 bedtime. Medic al drops Branch gabapentin 2020-0 Yes Take by Univ ers ER 300 mg 8-24 mouth ity of tablet, 19:19: daily. [place] extended 29 Medical release 24 Branch hr HYDROcodone 2020-0 Yes 1{tbl} Take 1 [place] -acetaminop 8-24 tablet by ity of hen 10-325 19:19: mouth [place] mg tablet 29 every 6 Medical (six) Branch hours as needed. bimatoprost 2020-[address] in [place] (LUMIGAN) 8-24 each eye ity of 0.01 % 19:19: at [place] ophthalmic 29 bedtime. Medic al drops Branch gabapentin 2020-0 Yes Take by Univ ers ER 300 mg 8-24 mouth ity of tablet, 19:19: daily. [place] extended 29 Medical release 24 Branch hr HYDROcodone 2020-0 Yes 1{tbl} Take 1 [place] -acetaminop 8-24 tablet by ity of hen 10-325 19:19: mouth [place] mg tablet 29 every 6 Medical (six) Branch hours as needed. bimatoprost 2020-[address] in [place] (LUMIGAN) 8-24 each eye ity of 0.01 % 19:19: at [place] ophthalmic 29 bedtime. Medic al drops Branch gabapentin 2020-0 Yes Take by Univ ers ER 300 mg 8-24 mouth ity of tablet, 19:19: daily. [place] extended 29 Medical release 24 Branch hr gabapentin 2020-0 Yes Take by Univ ers ER 300 mg 8-24 mouth ity of tablet, 19:19: daily. [place] extended 29 Medical release 24 Branch hr HYDROcodone 2020-0 Yes 1{tbl} Take 1 [place] -acetaminop 8-24 tablet by ity of hen 10-325 19:19: mouth [place] mg tablet 29 every 6 Medical (six) Branch hours as needed. bimatoprost 2020-[address] in [place] (LUMIGAN) 8-24 each eye ity of 0.01 % 19:19: at [place] ophthalmic 29 bedtime. Medic al drops Branch HYDROcodone 2020-0 Yes 1{tbl} Take 1 [place] -acetaminop 8-24 tablet by ity of hen 10-325 19:19: mouth [place] mg tablet 29 every 6 Medical (six) Branch hours as needed. gabapentin 2020-0 Yes Take by [facility] ers ER 300 mg 8-24 mouth ity of tablet, 19:19: daily. [place] extended 29 Medical release 24 Branch hr HYDROcodone 2020-0 Yes 1{tbl} Take 1 [place] -acetaminop 8-24 tablet by ity of hen 10-325 19:19: mouth [place] mg tablet 29 every 6 Medical (six) Branch hours as needed. bimatoprost 2020-[address] in [place] (LUMIGAN) 8-24 each eye ity of 0.01 % 19:19: at [place] ophthalmic 29 bedtime. Medic al drops Branch bimatoprost 2020-[address] in [place] (LUMIGAN) 8-24 each eye ity of 0.01 % 19:19: at [place] ophthalmic 29 bedtime. Medic al drops Branch gabapentin 2020-0 Yes Take by [facility] ers ER 300 mg 8-24 mouth ity of tablet, 19:19: daily. [place] extended 29 Medical release 24 Branch hr HYDROcodone 2020-0 Yes 1{tbl} Take 1 [place] -acetaminop 8-24 tablet by ity of hen 10-325 19:19: mouth [place] mg tablet 29 every 6 Medical (six) Branch hours as needed. bimatoprost 2020-[address] in [place] (LUMIGAN) 8-24 each eye ity of 0.01 % 19:19: at [place] ophthalmic 29 bedtime. Medic al drops Branch gabapentin 2020-0 Yes Take by [facility] ers ER 300 mg 8-24 mouth ity of tablet, 19:19: daily. [place] extended 29 Medical release 24 Branch hr HYDROcodone 2020-0 Yes 1{tbl} Take 1 [place] -acetaminop 8-24 tablet by ity of hen 10-325 19:19: mouth [place] mg tablet 29 every 6 Medical (six) Branch hours as needed. bimatoprost 2020-[address] in [place] (LUMIGAN) 8-24 each eye ity of 0.01 % 19:19: at [place] ophthalmic 29 bedtime. Medic al drops Branch gabapentin 2020-0 Yes Take by [place] [facility] ers ER 300 mg 8-24 mouth ity of tablet, 19:19: daily. [place] extended 29 Medical release 24 Branch hr HYDROcodone 2020-0 Yes 1{tbl} Take 1 [place] -acetaminop 8-24 tablet by ity of hen 10-325 19:19: mouth [place] mg tablet 29 every 6 Medical (six) Branch hours as needed. bimatoprost 2020-[address] in [place] (LUMIGAN) 8-24 each eye ity of 0.01 % 19:19: at [place] ophthalmic 29 bedtime. Medic al drops Branch gabapentin 2020-0 Yes Take by Univ ers ER 300 mg 8-24 mouth ity of tablet, 19:19: daily. [place] extended 29 Medical release 24 Branch hr HYDROcodone 2020-0 Yes 1{tbl} Take 1 [place] -acetaminop 8-24 tablet by ity of hen 10-325 19:19: mouth [place] mg tablet 29 every 6 Medical (six) Branch hours as needed. bimatoprost 2020-[address] in [place] (LUMIGAN) 8-24 each eye ity of 0.01 % 19:19: at [place] ophthalmic 29 bedtime. Medic al drops Branch ferrous 2020-0 Yes 325mg Take 325 Unive rs sulfate 325 8-24 mg by ity of mg (65 mg 19:19: mouth 2 [place] iron) EC 28 (two) Medical tablet times Branch daily. apixaban 5 2020-0 Yes 5mg Take 5 mg [place] mg tablet 8-24 by mouth 2 ity of 19:19: (two) [place] 28 times Medical daily. Branch nebivoloL 5 2020-0 Yes 5mg Take 5 mg U nivers mg tablet 8-24 by mouth ity of 19:19: daily. [place] [address] Medical Branch proMETHazin 2020-0 Yes 25mg Take 25 mg Univers e 25 mg 8-24 by mouth ity of tablet 19:19: every 4 [place] 28 (four) Medical hours as Branch needed. ferrous 2020-0 Yes 325mg Take 325 Unive rs sulfate 325 8-24 mg by ity of mg (65 mg 19:19: mouth 2 [place] iron) EC 28 (two) Medical tablet times Branch daily. apixaban 5 2020-0 Yes 5mg Take 5 mg [place] mg tablet 8-24 by mouth 2 ity of 19:19: (two) [place] 28 times Medical daily. Branch nebivoloL 5 2020-0 Yes 5mg Take 5 mg U nivers mg tablet 8-24 by mouth ity of 19:19: daily. [address] Branch proMETHazin 2020-0 Yes 25mg Take 25 mg Univers e 25 mg 8-24 by mouth ity of tablet 19:19: every 4 [place] [address] (four) Medical hours as Branch needed. ferrous 2020-0 Yes 325mg Take 325 Unive rs sulfate 325 8-24 mg by ity of mg (65 mg 19:19: mouth 2 [place] iron) EC 28 (two) Medical tablet times Branch daily. apixaban 5 2020-0 Yes 5mg Take 5 mg [place] mg tablet 8-24 by mouth 2 ity of 19:19: (two) [place] 28 times Medical daily. Branch nebivoloL 5 2020-0 Yes 5mg Take 5 mg U nivers mg tablet 8-24 by mouth ity of 19:19: daily. [address] proMETHazin 2020-0 Yes 25mg Take 25 mg Univers e 25 mg 8-24 by mouth ity of tablet 19:19: every 4 [place] [address] (four) Medical hours as Branch needed. ferrous 2020-0 Yes 325mg Take 325 Unive rs sulfate 325 8-24 mg by ity of mg (65 mg 19:19: mouth 2 [place] iron) EC 28 (two) Medical tablet times Branch daily. apixaban 5 2020-0 Yes 5mg Take 5 mg [place] mg tablet 8-24 by mouth 2 ity of 19:19: (two) [place] 28 times Medical daily. Branch nebivoloL 5 2020-0 Yes 5mg Take 5 mg U nivers mg tablet 8-24 by mouth ity of 19:19: daily. [address] proMETHazin 2020-0 Yes 25mg Take 25 mg Univers e 25 mg 8-24 by mouth ity of tablet 19:19: every 4 [place] 28 (four) Medical hours as Branch needed. ferrous 2020-0 Yes 325mg Take 325 Unive rs sulfate 325 8-24 mg by ity of mg (65 mg 19:19: mouth 2 [place] iron) EC 28 (two) Medical tablet times Branch daily. apixaban 5 2020-0 Yes 5mg Take 5 mg [place] mg tablet 8-24 by mouth 2 ity of 19:19: (two) [place] 28 times Medical daily. Branch nebivoloL 5 2020-0 Yes 5mg Take 5 mg U nivers mg tablet 8-24 by mouth ity of 19:19: daily. [address] Branch proMETHazin 2020-0 Yes 25mg Take 25 mg Univers e 25 mg 8-24 by mouth ity of tablet 19:19: every 4 [place] [address] (four) Medical hours as Branch needed. ferrous 2020-0 Yes 325mg Take 325 Unive rs sulfate 325 8-24 mg by ity of mg (65 mg 19:19: mouth 2 [place] iron) EC 28 (two) Medical tablet times Branch daily. ferrous 2020-0 Yes 325mg Take 325 Unive rs sulfate 325 8-24 mg by ity of mg (65 mg 19:19: mouth 2 [place] iron) EC 28 (two) Medical tablet times Branch daily. apixaban 5 2020-0 Yes 5mg Take 5 mg [place] mg tablet 8-24 by mouth 2 ity of 19:19: (two) [place] [address] times Medical daily. Branch nebivoloL 5 2020-0 Yes 5mg Take 5 mg U nivers mg tablet 8-24 by mouth ity of 19:19: daily. [address] Branch proMETHazin 2020-0 Yes 25mg Take 25 mg Univers e 25 mg 8-24 by mouth ity of tablet 19:19: every 4 [place] [address] (four) Medical hours as Branch needed. apixaban 5 2020-0 Yes 5mg Take 5 mg Un [place] mg tablet 8-24 by mouth 2 ity of 19:19: (two) [place] [address] times Medical daily. Branch ferrous 2020-0 Yes 325mg Take 325 Unive rs sulfate 325 8-24 mg by ity of mg (65 mg 19:19: mouth 2 [place] iron) EC 28 (two) Medical tablet times Branch daily. apixaban 5 2020-0 Yes 5mg Take 5 mg [place] mg tablet 8-24 by mouth 2 ity of 19:19: (two) [place] [address] times Medical daily. Branch nebivoloL 5 2020-0 Yes 5mg Take 5 mg U nivers mg tablet 8-24 by mouth ity of 19:19: daily. [place] [address] Medical Branch nebivoloL 5 2020-0 Yes 5mg Take 5 mg U nivers mg tablet 8-24 by mouth ity of 19:19: daily. [place] [address] Medical Branch proMETHazin 2020-0 Yes 25mg Take 25 mg Univers e 25 mg 8-24 by mouth ity of tablet 19:19: every 4 [place] [address] (four) Medical hours as Branch needed. proMETHazin 2020-0 Yes 25mg Take 25 mg Univers e 25 mg 8-24 by mouth ity of tablet 19:19: every 4 [place] [address] (four) Medical hours as Branch needed. ferrous 2020-0 Yes 325mg Take 325 Unive rs sulfate 325 8-24 mg by ity of mg (65 mg 19:19: mouth 2 [place] iron) EC 28 (two) Medical tablet times Branch daily. apixaban 5 2020-0 Yes 5mg Take 5 mg [place] mg tablet 8-24 by mouth 2 ity of 19:19: (two) [place] 28 times Medical daily. Branch nebivoloL 5 2020-0 Yes 5mg Take 5 mg U nivers mg tablet 8-24 by mouth ity of 19:19: daily. [place] [address] Medical Branch proMETHazin 2020-0 Yes 25mg Take 25 mg Univers e 25 mg 8-24 by mouth ity of tablet 19:19: every 4 [place] [address] (four) Medical hours as Branch needed. ferrous 2020-0 Yes 325mg Take 325 Unive rs sulfate 325 8-24 mg by ity of mg (65 mg 19:19: mouth 2 [place] iron) EC 28 (two) Medical tablet times Branch daily. apixaban 5 2020-0 Yes 5mg Take 5 mg [place] mg tablet 8-24 by mouth 2 ity of 19:19: (two) [place] 28 times Medical daily. Branch nebivoloL 5 2020-0 Yes 5mg Take 5 mg U nivers mg tablet 8-24 by mouth ity of 19:19: daily. [place] [address] Medical Branch proMETHazin 2020-0 Yes 25mg Take 25 mg Univers e 25 mg 8-24 by mouth ity of tablet 19:19: every 4 [place] [address] (four) Medical hours as Branch needed. ferrous 2020-0 Yes 325mg Take 325 Unive rs sulfate 325 8-24 mg by ity of mg (65 mg 19:19: mouth 2 [place] iron) EC 28 (two) Medical tablet times Branch daily. apixaban 5 2020-0 Yes 5mg Take 5 mg [place] mg tablet 8-24 by mouth 2 ity of 19:19: (two) [place] 28 times Medical daily. Branch nebivoloL 5 2020-0 Yes 5mg Take 5 mg U nivers mg tablet 8-24 by mouth ity of 19:19: daily. [place] [address] Medical Branch proMETHazin 2020-0 Yes 25mg Take 25 mg Univers e 25 mg 8-24 by mouth ity of tablet 19:19: every 4 [place] [address] (four) Medical hours as Branch needed. ferrous 2020-0 Yes 325mg Take 325 Unive rs sulfate 325 8-24 mg by ity of mg (65 mg 19:19: mouth 2 [place] iron) EC 28 (two) Medical tablet times Branch daily. apixaban 5 2020-0 Yes 5mg Take 5 mg [place] mg tablet 8-24 by mouth 2 ity of 19:19: (two) [place] 28 times Medical daily. Branch nebivoloL 5 2020-0 Yes 5mg Take 5 mg U nivers mg tablet 8-24 by mouth ity of 19:19: daily. [address] Branch proMETHazin 2020-0 Yes 25mg Take 25 mg Univers e 25 mg 8-24 by mouth ity of tablet 19:19: every 4 [place] [address] (four) Medical hours as Branch needed. ferrous 2020-0 Yes 325mg Take 325 Unive rs sulfate 325 8-24 mg by ity of mg (65 mg 19:19: mouth 2 [place] iron) EC 28 (two) Medical tablet times Branch daily. apixaban 5 2020-0 Yes 5mg Take 5 mg [place] mg tablet 8-24 by mouth 2 ity of 19:19: (two) [place] 28 times Medical daily. Branch nebivoloL 5 2020-0 Yes 5mg Take 5 mg U nivers mg tablet 8-24 by mouth ity of 19:19: daily. [address] Branch proMETHazin 2020-0 Yes 25mg Take 25 mg Univers e 25 mg 8-24 by mouth ity of tablet 19:19: every 4 [place] [address] (four) Medical hours as Branch needed. ferrous 2020-0 Yes 325mg Take 325 Unive rs sulfate 325 8-24 mg by ity of mg (65 mg 19:19: mouth 2 [place] iron) EC 28 (two) Medical tablet times Branch daily. apixaban 5 2020-0 Yes 5mg Take 5 mg [place] mg tablet 8-24 by mouth 2 ity of 19:19: (two) [place] 28 times Medical daily. Branch nebivoloL 5 2020-0 Yes 5mg Take 5 mg U nivers mg tablet 8-24 by mouth ity of 19:19: daily. [place] [address] Medical Branch proMETHazin 2020-0 Yes 25mg Take 25 mg Univers e 25 mg 8-24 by mouth ity of tablet 19:19: every 4 [place] [address] (four) Medical hours as Branch needed. furosemide 2020-0 Yes 20mg Take 20 mg U nivers 20 mg 8-24 by mouth ity of tablet 14:20: daily. [address] furosemide 2020-0 Yes 20mg Take 20 mg U nivers 20 mg 8-24 by mouth ity of tablet 14:20: daily. [address] furosemide 2020-0 Yes 20mg Take 20 mg U nivers 20 mg 8-24 by mouth ity of tablet 14:20: daily. [address] furosemide 2020-0 Yes 20mg Take 20 mg U nivers 20 mg 8-24 by mouth ity of tablet 14:20: daily. [place] [address] Medical Branch dorzolamide 2020-0 Yes 1[drp] 1 Drop 2 Univers -timoloL 8-24 (two) ity of 22.3-6.8 14:20: times [place] mg/mL 49 daily. Medical ophthalmic Branch drops dorzolamide 2020-0 Yes 1[drp] 1 Drop 2 Univers -timoloL 8-24 (two) ity of 22.3-6.8 14:20: times [place] mg/mL 49 daily. Medical ophthalmic Branch drops dorzolamide 2020-0 Yes 1[drp] 1 Drop 2 Univers -timoloL 8-24 (two) ity of 22.3-6.8 14:20: times [place] mg/mL 49 daily. Medical ophthalmic Branch drops dorzolamide 2020-0 Yes 1[drp] 1 Drop 2 Univers -timoloL 8-24 (two) ity of 22.3-6.8 14:20: times [place] mg/mL 49 daily. Medical ophthalmic Branch drops gabapentin 2020-0 Yes Take by Univ ers ER 300 mg 8-24 mouth ity of tablet, 14:19: daily. [place] extended 29 Medical release 24 Branch hr HYDROcodone 2020-0 Yes 1{tbl} Take 1 Un karo -acetaminop 8-24 tablet by ity of hen 10-325 14:19: mouth [place] mg tablet 29 every 6 Medical (six) Branch hours as needed. bimatoprost 2020-[address] in Un [place] (LUMIGAN) 8-24 each eye ity of 0.01 % 14:19: at [place] ophthalmic 29 bedtime. Medic al drops Branch gabapentin 2020-0 Yes Take by [facility] ers ER 300 mg 8-24 mouth ity of tablet, 14:19: daily. [place] extended 29 Medical release 24 Branch hr HYDROcodone 2020-0 Yes 1{tbl} Take 1 Un [place] -acetaminop 8-24 tablet by ity of hen 10-325 14:19: mouth [place] mg tablet 29 every 6 Medical (six) Branch hours as needed. bimatoprost 2020-[address] in [place] (LUMIGAN) 8-24 each eye ity of 0.01 % 14:19: at [place] ophthalmic 29 bedtime. Medic al drops Branch gabapentin 2020-0 Yes Take by [facility] ers ER 300 mg 8-24 mouth ity of tablet, 14:19: daily. [place] extended 29 Medical release 24 Branch hr HYDROcodone 2020-0 Yes 1{tbl} Take 1 Un [place] -acetaminop 8-24 tablet by ity of hen 10-325 14:19: mouth [place] mg tablet 29 every 6 Medical (six) Branch hours as needed. bimatoprost 2020-[address] in [place] (LUMIGAN) 8-24 each eye ity of 0.01 % 14:19: at [place] ophthalmic 29 bedtime. Medic al drops Branch gabapentin 2020-0 Yes Take by [facility] ers ER 300 mg 8-24 mouth ity of tablet, 14:19: daily. [place] extended 29 Medical release 24 Branch hr HYDROcodone 2020-0 Yes 1{tbl} Take 1 Un k[place] -acetaminop 8-24 tablet by ity of hen 10-325 14:19: mouth [place] mg tablet 29 every 6 Medical (six) Branch hours as needed. bimatoprost 2020-[address] in [place] (LUMIGAN) 8-24 each eye ity of 0.01 % 14:19: at [place] ophthalmic 29 bedtime. Medic al drops Branch ferrous 2020-0 Yes 325mg Take 325 Unive rs sulfate 325 8-24 mg by ity of mg (65 mg 14:19: mouth 2 [place] iron) EC 28 (two) Medical tablet times Branch daily. apixaban 5 2020-0 Yes 5mg Take 5 mg Un [place] mg tablet 8-24 by mouth 2 ity of 14:19: (two) [place] 28 times Medical daily. Branch nebivoloL 5 2020-0 Yes 5mg Take 5 mg U nivers mg tablet 8-24 by mouth ity of 14:19: daily. [address] Branch proMETHazin 2020-0 Yes 25mg Take 25 mg Univers e 25 mg 8-24 by mouth ity of tablet 14:19: every 4 [place] [address] (four) Medical hours as Branch needed. ferrous 2020-0 Yes 325mg Take 325 Unive rs sulfate 325 8-24 mg by ity of mg (65 mg 14:19: mouth 2 [place] iron) EC 28 (two) Medical tablet times Branch daily. apixaban 5 2020-0 Yes 5mg Take 5 mg Un [place] mg tablet 8-24 by mouth 2 ity of 14:19: (two) [place] 28 times Medical daily. Branch nebivoloL 5 2020-0 Yes 5mg Take 5 mg U nivers mg tablet 8-24 by mouth ity of 14:19: daily. [address] Branch proMETHazin 2020-0 Yes 25mg Take 25 mg Univers e 25 mg 8-24 by mouth ity of tablet 14:19: every 4 [place] [address] (four) Medical hours as Branch needed. ferrous 2020-0 Yes 325mg Take 325 Unive rs sulfate 325 8-24 mg by ity of mg (65 mg 14:19: mouth 2 [place] iron) EC 28 (two) Medical tablet times Branch daily. apixaban 5 2020-0 Yes 5mg Take 5 mg Un [place] mg tablet 8-24 by mouth 2 ity of 14:19: (two) [place] [address] times Medical daily. Branch nebivoloL 5 2020-0 Yes 5mg Take 5 mg U nivers mg tablet 8-24 by mouth ity of 14:19: daily. [place] [address] Medical Branch proMETHazin 2020-0 Yes 25mg Take 25 mg Univers e 25 mg 8-24 by mouth ity of tablet 14:19: every 4 [place] [address] (four) Medical hours as Branch needed. ferrous 2020-0 Yes 325mg Take 325 Unive rs sulfate 325 8-24 mg by ity of mg (65 mg 14:19: mouth 2 [place] iron) EC 28 (two) Medical tablet times Branch daily. apixaban 5 2020-0 Yes 5mg Take 5 mg [place] mg tablet 8-24 by mouth 2 ity of 14:19: (two) [place] 28 times Medical daily. Branch nebivoloL 5 2020-0 Yes 5mg Take 5 mg U nivers mg tablet 8-24 by mouth ity of 14:19: daily. [place] [address] Medical Branch proMETHazin 2020-0 Yes 25mg Take 25 mg Univers e 25 mg 8-24 by mouth ity of tablet 14:19: every 4 [place] [address] (four) Medical hours as Branch needed. torsemide 2018-0 Yes 20mg QD Take 20 mg [facility] (DEMADEX) 2-[address] 20 MG 11:56: daily. Hospita tablet 54 l rivaroxaban 2018-0 Yes 20mg Take 20 mg [facility] (XARELTO) 2-[address] 20 mg 11:56: Hospita tablet 54 l ramipril 2018-0 Yes 5mg QD Take 5 mg Meth yrn (ALTACE) 5 2-[address] MG capsule 11:56: daily. Hospi ta 54 l acetaZOLAMI 2018-0 Yes 125mg Q.[id number] Take 125 [facility] DE (DIAMOX) 2-22 [id number] mg by s t 125 MG 11:56: 3D mouth 3 Hospita tablet 53 (three) l times a day. metFORMIN 2018-0 Yes 1000mg Q.5D Take 1,000 [facility] (GLUCOPHAGE 2-[address] ) 1,000 mg 11:56: mouth 2 Hosp amna tablet 53 (two) l times a day with meals. gabapentin 2018-0 Yes 300mg Q.[id number] Take 300 [facility] (NEURONTIN) 2-22 [id number] mg by s t 300 mg 11:56: 3D mouth 3 Hospita capsule 53 (three) l times a day. nebivolol 2018-0 Yes 10mg QD Take 10 mg [facility] (BYSTOLIC) 2-[address] 10 MG 11:56: daily. Hospita tablet 53 l atorvastati 2018-0 Yes 40mg QD Take 40 mg Methodi n (LIPITOR) 2-[address] 40 MG 11:56: daily. Hospita tablet 53 l desvenlafax 2018-0 Yes 50mg QD Take 50 mg [facility] ine 2-[address] (PRISTIQ) 11:56: daily. Hospit a 50 MG 24 hr 53 l tablet oxyCODone 2018-0 Yes Q4H Take by Metho di (ROXICODONE 2-[address] ) 10 MG 11:56: every 4 Hospita tablet 53 (four) l hours as needed for moderate pain. bimatoprost Yes 1[drp] QD 1 drop [facility] (LUMIGAN) 2-[address] 0.01 % 11:56: Hospita ophthalmic 53 l drops dorzolamide Yes 1[drp] Q.5D 1 drop 2 [facility] -timolol 2- (two) st (COSOPT) 11:56: times a Hospit a 22.3-6.8 53 day. l mg/mL ophthalmic solution No Known No Known No Common Medications Medications [facility] No known No Univers medications ity of [facility] Branch Immunizations Ordered Filled Date Status Comments Source Immunization Name Immunization Name SARS-COV-2 COVID-19 2021-03-29 Completed Unive rsity of MODERNA BOOSTER 00:00:00 [place] Med ical VACCINE Branch SARS-COV-2 COVID-19 2021-03-29 Completed Unive rsity of MODERNA 0.25ML 00:00:00 [place] Medi cabrera BOOSTER VACCINE Branch SARS-COV-2 COVID-19 2020-04-24 Completed Unive rsity of MODERNA VACCINE 00:00:00 [place] Med ical Branch SARS-COV-2 COVID-19 2020-04-24 Completed Unive rsity of MODERNA 12+ YRS 00:00:00 [place] Med ical VACCINE Branch SARS-COV-2 COVID-19 2020-03-27 Completed Unive rsity of MODERNA VACCINE 00:00:00 [place] Med ical Branch SARS-COV-2 COVID-19 2020-03-27 Completed Unive rsity of MODERNA 12+ YRS 00:00:00 [place] Med ical VACCINE Branch SARS-COV-2 COVID-19 Unknown Completed Unive rsity of MODERNA 12+ YRS [place] Med ical VACCINE Branch SARS-COV-2 COVID-19 Unknown Completed Unive rsity of MODERNA 12+ YRS [place] Med ical VACCINE Branch SARS-COV-2 COVID-19 Unknown Completed Unive rsity of MODERNA 12+ YRS [place] Med ical VACCINE Branch SARS-COV-2 COVID-19 Unknown Completed Unive rsity of MODERNA 12+ YRS [place] Med ical VACCINE Branch SARS-COV-2 COVID-19 Unknown Completed Unive rsity of MODERNA 0.25ML [place] [facility] BOOSTER VACCINE Branch Vital Signs Vital Name Observation Time Observation Value Comments Source Systolic blood 2023-02-06 01:00:00 142 mm[Hg] Univer sity of pressure [place] [facility] Diastolic blood 2023-02-06 01:00:00 70 mm[Hg] Unive rsity of pressure [place] [facility] [place] Heart rate 2023-02-06 01:00:00 66 /min Universi ty of [place] [facility] Oxygen saturation in 2023-02-06 01:00:00 96 /min University of Arterial blood by [place] [employer] cabrera Pulse oximetry Branch Respiratory rate 2023-02-06 00:00:00 16 /min Univ ersity of [place] [facility] Body temperature 2023-02-05 22:38:00 37.39 Gerda Univ ersity of [place] [facility] Body height 2023-02-05 22:38:00 157.5 cm Universi ty of [place] [facility] Body weight 2023-02-05 22:38:00 99.791 kg Universi ty of [place] [facility] BMI 2023-02-05 22:38:00 40.24 kg/m2 Universi ty of [place] [facility] Systolic blood 2022-08-10 22:00:00 145 mm[Hg] Univer sity of pressure [place] [facility] Diastolic blood 2022-08-10 22:00:00 75 mm[Hg] Unive rsity of pressure [place] [facility] Heart rate 2022-08-10 22:00:00 69 /min Universi ty of [place] [facility] Respiratory rate 2022-08-10 22:00:00 20 /min Univ ersity of [place] [facility] Oxygen saturation in 2022-08-10 22:00:00 96 /min University of Arterial blood by [employer] cabrera Pulse oximetry Branch Body temperature 2022-08-10 15:59:00 36.89 Gerda Univ ersity of [place] [facility] Body height 2022-08-10 15:59:00 160 cm Universi ty of [place] [facility] Body weight 2022-08-10 15:59:00 99.791 kg Universi ty [facility] [place] [facility] BMI 2022-08-10 15:59:00 38.97 kg/m2 Universi ty [facility] [place] [facility] Systolic blood 2020-02-18 16:50:00 128 mm[Hg] Univer sity of pressure [facility] Diastolic blood 2020-02-18 16:50:00 67 mm[Hg] Unive rsity of pressure [facility] Heart rate 2020-02-18 16:50:00 63 /min Universi ty of [facility] Body temperature 2020-02-18 16:50:00 36 Gerda Univ ersity of [facility] Respiratory rate 2020-02-18 16:50:00 18 /min Univ ersity of [facility] Body height 2020-02-18 16:50:00 157.5 cm Universi ty of [facility] Body weight 2020-02-18 16:50:00 114.306 kg Universi ty of [facility] BMI 2020-02-18 16:50:00 46.09 kg/m2 Universi ty [facility] Oxygen saturation in 2020-02-18 16:50:00 99 /min University Arterial blood by [facility] Pulse oximetry Branch height 2020-01-07 15:15:00 63 [in_i] Common [facility] weight 2020-01-07 15:15:00 215 [lb_av] Common [facility] temperature 2020-01-07 15:15:00 97.7 [degF] Common [facility] bmi 2020-01-07 15:15:00 38.08 kg/m2 [facility] oximetry 2020-01-07 15:15:00 92 % Common [facility] blood pressure 2020-01-07 15:15:00 125 mm[Hg] [facility] blood pressure 2020-01-07 15:15:00 63 mm[Hg] [facility] Systolic blood 2019-12-10 16:37:00 117 mm[Hg] Univer sity of pressure [facility] Diastolic blood 2019-12-10 16:37:00 65 mm[Hg] Unive rsity of pressure [facility] Heart rate 2019-12-10 16:37:00 67 /min Universi ty of [facility] Body temperature 2019-12-10 16:37:00 36.17 Gerda Univ ersity of [facility] Respiratory rate 2019-12-10 16:37:00 18 /min Univ ersity of [place] [facility] Body weight 2019-12-10 16:37:00 98.884 kg Universi ty [facility] [place] [facility] BMI 2019-12-10 16:37:00 38.62 kg/m2 Universi ty [facility] [place] [facility] Systolic blood 2019-12-10 16:37:00 117 mm[Hg] Univer sity of pressure [place] [facility] Diastolic blood 2019-12-10 16:37:00 65 mm[Hg] Unive rsity of pressure [place] [facility] Heart rate 2019-12-10 16:37:00 67 /min Universi ty of [facility] Body temperature 2019-12-10 16:37:00 36.17 Gerda Univ ersity of [facility] Respiratory rate 2019-12-10 16:37:00 18 /min Univ ersity of [place] [facility] [place] Body weight 2019-12-10 16:37:00 98.884 kg Universi ty of [facility] BMI 2019-12-10 16:37:00 38.62 kg/m2 Universi ty of [facility] Systolic blood 2019-11-27 19:19:00 126 mm[Hg] Univer sity of pressure [place] [facility] Diastolic blood 2019-11-27 19:19:00 69 mm[Hg] Unive rsity of pressure [facility] Heart rate 2019-11-27 19:19:00 60 /min Universi ty of [facility] Body temperature 2019-11-27 19:19:00 36.67 Gerda Univ ersity of [facility] Branch Respiratory rate 2019-11-27 19:19:00 12 /min Univ ersity of [facility] Body height 2019-11-27 19:19:00 160 cm Universi ty of [place] [facility] [place] Body weight 2019-11-27 19:19:00 90.719 kg Universi ty [facility] [place] [facility] BMI 2019-11-27 19:19:00 35.43 kg/m2 Universi ty of [facility] Oxygen saturation in 2019-11-27 19:19:00 96 /min [facility] Arterial blood by [facility] Pulse oximetry Branch Systolic blood 2019-11-11 19:08:00 122 mm[Hg] Univer sity of pressure [facility] Diastolic blood 2019-11-11 19:08:00 68 mm[Hg] Unive rsity of pressure [facility] Heart rate 2019-11-11 19:08:00 76 /min Universi ty [facility] Respiratory rate 2019-11-11 19:08:00 19 /min [facility] height 2019-11-11 19:08:00 160 cm Universi ty [facility] [place] [facility] [place] Body weight 2019-11-11 19:08:00 114.125 kg Universi ty of [place] [facility] [place] BMI 2019-11-11 19:08:00 44.57 kg/m2 Universi [facility] Oxygen saturation in 2019-11-11 19:08:00 97 /min [facility] Arterial blood by [facility] Pulse oximetry Branch Systolic blood 2019-11-11 16:00:00 122 mm[Hg] [facility] Diastolic blood 2019-11-11 16:00:00 68 mm[Hg] [facility] Heart rate 2019-11-11 16:00:00 76 /min Universi ty of [facility] Body height 2019-11-11 16:00:00 160 cm Universi ty [facility] [place] [facility] [place] Body weight 2019-11-11 16:00:00 113.853 kg Universi ty [facility] BMI 2019-11-11 16:00:00 44.46 kg/m2 Universi [facility] Procedures Procedure Date / Time Performed Performing Clinician [facility] e XR KNEE 3 VW RIGHT 2023-02-05 23:58:00 Anabel Oliver [facility] XR PELVIS <3 VW 2023-02-05 23:58:00 Anabel Oliver [facility] ASSIGNMENT OF BENEFITS 2023-02-05 22:45:29 Doctor Unassigned, No [facility] Name [facility] Branch CONSENT/REFUSAL FOR 2023-02-05 22:44:15 Doctor Unassigned, No [facility] DIAGNOSIS AND Name [facility] TREATMENT URINALYSIS 2022-08-10 20:20:00 Alex Maya [facility] MAGNESIUM 2022-08-10 16:39:00 Alex Maya [facility] COMP. METABOLIC PANEL 2022-08-10 16:39:00 Alex Maya [facility] ([id number] CBC WITH DIFF 2022-08-10 16:39:00 Alex Maya y [facility] SARS-COV-2 COVID-19 2021-03-29 20:21:59 Doctor Unassigned, No Un iversity [facility] BOOSTER,0.25ML,IM (MODERNA) HOME HEALTH 485 2019-12-18 05:01:00 Doctor Unassigned, No Univer sity of [facility] [place] XR KNEE <3 VW RIGHT 2019-11-27 21:26:59 Jeanne Blackwell [facility] ECHO ROUTINE W/DOPPLER 2019-11-11 19:58:46 Katherine Bartlett [facility] HOME HEALTH 485 2019-11-08 05:01:00 Doctor Unassigned, No Univer sity [facility] [place] [facility] Plan of Care Planned Activity Planned Date Details Comments Source Future Scheduled 2023-01-12 COVID-19 VACCINE (#1) [facility] Hospital Test 16:51:35 [code = COVID-19 VACCINE (#1)] Future Scheduled 2023-01-12 SHINGLES VACCINES (1 Met [facility] Test 16:51:35 of 2) [code = SHINGLES VACCINES (1 of 2)] Future Scheduled 2023-01-12 65+ PNEUMOCOCCAL Methodi [facility] Test 16:51:35 VACCINE (1 - PCV) [code = 65+ PNEUMOCOCCAL VACCINE (1 - PCV)] Future Scheduled 2023-01-12 INFLUENZA VACCINE (#1) [facility] Test 16:51:35 [code = INFLUENZA VACCINE (#1)] Encounters Start End Encounter Admission Attending Care Care Encounter Source Date/Time Date/Time Type Type Clinicians Facility Department ID [facility]04[facility]14 [id number] Common 11:57:15 [id number] [facility] 2021-01-15 Emergency [facility] [id number] Univers 16:39:39 lance [facility] 2023-02-05 2023-02-05 Emergency X XAVIER OLIVER ERT [id number] Univers 16:37:00 19:49:00 ANABEL lucas [facility] 2023-02-05 2023-02-05 Emergency [facility] [id number] Univers 16:37:00 19:49:00 Anabel LOERA [id number] ity [facility] [id number] [facility] [phone] [address] 2023-01-15 2023-01-15 Outpatient GC_[id number] PRIV PRIV [id number] [facility] 00:00:00 00:00:00 diyala_S [id number] Medic al 2022-08-10 2022-08-10 Emergency [facility] [id number] Univers 11:01:00 18:16:00 JUBRIL ity [facility] 2022-08-10 2022-08-10 Emergency [facility] 1.2.840.114 [id number] Univers 11:01:00 18:16:00 Alex LOERA [id number] i ty [facility] [id number] [facility] [phone] [address] 2021-03-29 2021-03-29 Imm/Inj Nurse, Adc Pob Immunization [facility] 1.2.840.114 [id number] Univers 14:00:00 14:17:06 Visit Chalo Miramontes [id number] .10 ity [facility] [id number] [facility] [place] [facility] PROFESSIO [phone] Tx dical NAL [address] [place] [facility] 2021-03-29 2021-03-29 Outpatient [facility] [id number] Univers 14:00:00 14:00:00 CHALO lucas [facility] 2021-03-05 2021-03-05 Patient Doctor OTTO 1.2.840.114 [id number] Univers 00:00:00 00:00:00 Secure Msg Unassigned, ОЛЬГА [id number] ity of [place] [facility] [id number] [place] [phone] [address] 2020-04-24 2020-04-24 Outpatient Delon MONGE [facility] [id number] Univers 11:10:00 11:10:00 BRICE ity [facility] 2020-03-27 2020-03-27 Outpatient R SALEEM [facility] [id number] Univers 10:30:00 10:30:00 BRICE ity [facility] 2020-02-25 2020-02-25 Telephone [facility] 1.2.840.114 [id number] Univers 00:00:00 00:00:00 Kellie Loera [id number] ity [id number] [phone] [place] dical nal [address] [facility] 2020-02-18 2020-02-18 Office [facility] 1.2.840.114 [id number] Univers 09:55:51 12:00:11 Visit Kellie Loera [id number] ity [place] [id number] [phone] [place] dical nal 205 [facility] 2020-02-18 2020-02-18 Outpatient R [facility] [id number] Univers 09:45:00 09:45:00 KELLIE hernandez [facility] 2020-02-03 2020-02-03 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 10 ity of [place] [id number] [phone] [place] dical nal 059 [facility] 2020-02-03 2020-02-03 Outpatient R [facility] [id number] Univers 15:00:00 15:00:00 ity [facility] 2020-01-31 2020-01-31 Outpatient R [facility] [id number] Univers 11:00:00 11:00:00 KELLIE hernandez [facility] 2020-01-23 2020-01-23 Outpatient [facility] [id number] Univers 13:00:00 13:00:00 KATHERINE hernandez [facility] 2020-01-07 2020-01-07 OFFICE [facility] [id number] Co mmon 00:00:00 00:00:00 VISIT NEW Spir it PT LEVEL 4 - [facility] 2019-12-18 2019-12-18 Outpatient [facility] [id number] Univers 00:00:00 00:00:00 ity of [facility] 2019-12-18 2019-12-18 Orders Doctor OTTO 1.2.840.114 [id number] Univers 00:00:00 00:00:00 Only Unassigned, ОЛЬГА [id number] ity of [place] [facility] [id number] [place] as [phone] [address] 2019-12-18 2019-12-18 Orders Doctor OTTO 1.2.840.114 [id number] 00:00:00 00:00:00 Only Unassigned, ОЛЬГА [id number] [place] [facility] [id number] [phone] [facility] 2019-12-10 2019-12-14 Office [facility] 1.2.840.114 [id number] [facility] [place] [facility] 11:27:03 12:47:30 Visit Kellie Loera [id number] ity of [id number] [phone] T[place] dical [address] 2019-12-10 2019-12-14 Office [facility] 1.2.840.114 [id number] 11:27:03 12:47:30 Visit Kellie Loera [id number] [place] [id number] Professio [phone] 2019-12-10 2019-12-10 Outpatient R [facility] [id number] Univers 11:15:00 11:15:00 KELLIE lucas o f [facility] 2019-11-28 2019-11-28 Telephone [facility] [id number] Univers 00:00:00 00:00:00 Katherine Loera [id number] ity [id number] [phone] Tx dical nal 0[address] [facility] 2019-11-27 2019-11-27 Emergency Jeanne Blackwell [facility] 1.2.840.114 [id number] Univers 14:22:00 17:20:00 Amaya Loera [id number] i ty of [place] [id number] [place] [phone] [facility] [address] [place] 2019-11-26 2019-11-26 Outpatient [facility] [id number] Univers 00:00:00 00:00:00 ity of [facility] 2019-11-11 2019-11-11 Office [facility] 1.2.840.114 [id number] Univers 14:00:22 22:32:29 Visit Katherine Loera [id number] ity of [id number] [phone] Tx dichi nal [address] [place] [address] 2019-11-11 2019-11-11 Laboratory Pc, Adc Echo Room 1 - [facility] 1 .2.840.114 [id number] Univers 14:56:23 15:29:48 Only Tri, Katherine Loera [id number] ity of [place] [id number] [phone] Tx dichi nal [address] [place] [address] 2019-11-11 2019-11-11 Outpatient R TRI [facility] [id number] Univers 14:00:00 14:00:00 KATHERINE infantey o f [facility] 2019-11-08 2019-11-08 Outpatient R [facility] [id number] Univers 00:00:00 00:00:00 ity of [facility] 2019-11-08 2019-11-08 Orders Doctor OTTO 1.2.840.114 [id number] Univers 00:00:00 00:00:00 Only Unassigned, ОЛЬГА [id number] ity of [place] [facility] [id number] [place] as [phone] [facility] 009 Branch Results Test Description Test Time Test Comments Results Result Comments Source MAGNESIUM 2022-08-10 17:43:29 Test Item Value Reference Range Interpretation Comme nts MAGNESIUM (test code = 1805964286) 1.7 mg/dL 1.7-2.4 Lab Interpretation (test code = 44875-8) [facility] (63725)2022-08-10 17:22:06 Test Item Value Reference Range Interpretation Comments NA (test code = 142 mmol/L 135-145 8550665981) K (test code = 4.0 mmol/L 3.5-5.0 2988646869) CL (test code = 112 mmol/L 98-108 H 4507490075) CO2 TOTAL (test code = 21 mmol/L 23-31 L 4031850284) AGAP (test code = 9 2-16 6703549024) BUN (test code = 24 mg/dL 7-23 H 8013854901) GLUCOSE (test code = 159 mg/dL 70-110 H [id number]) CREATININE (test code = 1.50 mg/dL 0.50-1.04 H 5918179286) TOTAL BILI (test code = 0.6 mg/dL 0.1-1.1 2690572248) CALCIUM (test code = 7.8 mg/dL 8.6-10.6 L [id number]) T PROTEIN (test code = 6.1 g/dL 6.3-8.2 L 1219175365) ALBUMIN (test code = 3.4 g/dL 3.5-5.0 L 1934328852) ALK PHOS (test code = 55 U/L 34-122 5011692639) ALTv (test code = 27 U/L 5-35 1742-6) AST(SGOT) (test code = 64 U/L 13-40 H 4501112591) eGFR (test code = 33.9 mL/min/1.73m2 4616653582) ELIAS (test code = ELIAS) Association of Glomerular Filtration Rate (GFR) and Staging of Kidney Disease* + --+ --+ ------+| GFR (mL/min/1.73 m2) ?| With Kidney Damage ?| ?Without Kidney Damage+ --------+ --------+ +| ?>90 ?| ?Stage one ?| ? Normal ?+ ---+ ---+ -------+| ?60-89 ?| ?Stage two ?| ? Decreased GFR ? + --+ --+ ------+| ?30-59 ?| ?Stage three ?| ? Stage three ? + --+ --+ ------+| ?15-29 ?| ?Stage four ? | ? Stage four ?+ ---+ ---+ -------+| ?<15 (or dialysis) ? ?| ?Stage five ? | ? Stage five ?+ ---+ ---+ -------+ *Each stage assumes the associated GFR level has been in effect for at least three months. ?Stages 1 to 5, with or without kidney disease, indicate chronic kidney disease. Notes: Determination of stages one and two (with eGFR >59mL/min/1.73 m2) requires estimation of kidney damage for at least three months as defined by structural or functional abnormalities of the kidney, manifested by either:Pathological abnormalities or Markers of kidney damage (including abnormalities in the composition of the blood or urine or abnormalities in imaging tests). Lab Interpretation Abnormal (test code = 03772-0) [facility] WITH [id number] 17:07:45 Test Item Value Reference Range Interpretation Comments WBC (test code = 6.79 See_Comment [Automated 5946-2) message] The sy stem which generated this result transmitted reference range : 4.30 - 11.10 10*3/?L. The reference range was not used to interpret this result as normal/abnormal . RBC (test code = 4.59 See_Comment [Automated 116-8) message] The sy stem which generated this result transmitted reference range : 3.93 - 5.25 10*6/?L. The reference range was not used to interpret this result as normal/abnormal . HGB (test code = 12.6 g/dL 11.6-15.0 718-7) HCT (test code = 40.3 % 35.7-45.2 4544-3) MCV (test code = 87.8 fL 80.6-95.5 787-2) MCH (test code = 27.5 pg 25.9-32.8 785-6) MCHC (test code = 31.3 g/dL 31.6-35.1 L 786-4) RDW-SD (test code = 44.5 fL 39.0-49.9 67877-3) RDW-CV (test code = 13.9 % 12.0-15.5 788-0) PLT (test code = 148 See_Comment L [Automated 777-3) message] The sy stem which generated this result transmitted reference range : 166 - 358 10*3/ ?L. The reference r julieta was not used to interpret this result as normal/abnormal . MPV (test code = 11.3 fL 9.5-12.9 40333-3) NRBC/100 WBC (test 0.0 See_Comment [Automat ed code = [id number]) message] The system which generated this result transmitted reference range : 0.0 - 10.0 /100 WBCs. The refer ence range was not u sed to interpret th is result as normal/abnormal . NRBC x10^3 (test code See_Comment [Auto mated = [id number]) message] The s ystem which generated this result transmitted reference range : 10*3/?L. The reference range was not used to interpret this result as normal/abnormal . GRAN MAT (NEUT) % 62.4 % (test code = 770-8) IMM GRAN % (test code 0.30 % = 9763548731) LYMPH % (test code = 23.9 % 736-9) MONO % (test code = 10.0 % 5905-5) EOS % (test code = 2.2 % 713-8) BASO % (test code = 1.2 % 706-2) GRAN MAT x10^3(ANC) 4.24 10*3/uL 1.88-7.09 (test code = [id number]) IMM GRAN x10^3 (test 0.00-0.06 code = 7265052400) LYMPH x10^3 (test code 1.62 10*3/uL 1.32-3.29 = 731-0) MONO x10^3 (test code 0.68 10*3/uL 0.33-0.92 = 742-7) EOS x10^3 (test code = 0.15 10*3/uL 0.03-0.39 711-2) BASO x10^3 (test code 0.08 10*3/uL 0.01-0.07 H = 704-7) Lab Interpretation Abnormal (test code = 46709-9) [facility] [id number] 21:29:28 HISTORY: ?Pain. Ski fall. FINDINGS: AP and lateral views of right knee showed no acute fracture ordislocation. Total knee replacement including some signs of revision ofreplaced knee noted. No metallichardware related complication visualized. CONCLUSIONS: No acute fracture or dislocation in artificial right knee. [facility], Radiant Results Inft User - 11/27/2019 4:30 PM CDTHISTORY: Pain. Ski fall.FINDINGS: AP and lateral views of right knee showed no acute fracture ordislocation. Total knee replacement including some signs of revision ofreplaced knee noted. No metallic hardware related complication visu alized.CONCLUSIONS: No acute fracture or dislocation in artificial right knee. [facility]"
[2023-02-06 12:15] LABS: Absolute Lymphocytes (CBC) 2.1 K/uL (0.7-4.9); Hematocrit 34.7 % (36.0-45.0); Lymphocytes % 27.1 % (15.3-44.8); MCV 85.8 fL (80-100); MPV 8.9 fL (7.6-11.3); Platelets 144 thou/uL (152-406); RBC Red Blood Cell Count 4.04 M/uL (3.86-4.86)
[2023-02-06 12:23] LABS: Protime INR 1.5
[2023-02-06 12:39] LABS: Bilirubin Direct 0.2 mg/dL (0-0.2); Bilirubin Indirect, Calculated 0.4 mg/dL (0.2-0.8); Bilirubin Total 0.6 mg/dL (0.2-1.0); Magnesium 1.8 mg/dL (1.6-2.4); Potassium 4.3 mEq/L (3.5-5.1); Protein, Total 6.6 g/dL (6.4-8.2); Troponin High Sensitivity 8.9 pg/mL (<58.9)
--- NOTE | 2023-02-06 12:58 | RAD REPORT ---
EXAM DESCRIPTION: USExtrem Venous W Compress Bil02/06/2023 12:39 pm CLINICAL HISTORY: Leg pain COMPARISON: 2019 FINDINGS: The common femoral, superficial femoral, greater saphenous, popliteal and posterior tibial veins bilaterally are compressible and demonstrate augmentation. Doppler demonstrates good flow. Grayscale, color and spectral analysis performed on all vessels IMPRESSION: No evidence of deep venous thrombosis involving either lower extremity.
--- NOTE | 2023-02-06 13:32 | RAD REPORT ---
EXAM DESCRIPTION: RAD - Pelvis - 02/06/2023 1:01 pm CLINICAL HISTORY: PAIN COMPARISON: <Comparisons> FINDINGS: Bilateral total hip arthroplasties are present. Hardware loosening or infection findings. Surgical clips project over the pelvic region. The bones are quite demineralized. IMPRESSION: No gross acute abnormality seen.
--- NOTE | 2023-02-06 13:38 | RAD REPORT ---
EXAM DESCRIPTION: RAD - Femur Right - 02/06/2023 1:02 pm CLINICAL HISTORY: PAIN COMPARISON: <Comparisons> FINDINGS: There is an extensive and right sided femoral hardware construct noted. This spans a right hip to the right knee. No evidence of hardware loosening or infection. There is oblique fracture see n sub trochanteric proximal right femur. Fracture lucency is present. This is potentially acute howev er age is indeterminate.
--- NOTE | 2023-02-06 13:39 | RAD REPORT ---
EXAM DESCRIPTION: RAD - Knee Right 3 View - 02/06/2023 1:02 pm CLINICAL HISTORY: PAIN COMPARISON: <Comparisons> FINDINGS: Diffuse osteopenia is seen. Right complex knee hardware construct is present. There is no finding to indicate hardware loosening or infection. There is subtle cortical step-off involving the proximal right fibula, which could be a fracture if the patient is point tender in this region.
--- NOTE | 2023-02-06 13:41 | RAD REPORT ---
EXAM DESCRIPTION: RAD - Tib Fib Right - 02/06/2023 1:02 pm CLINICAL HISTORY: PAIN COMPARISON: <Comparisons> FINDINGS: Right total knee arthroplasty is noted spanning the right knee joint. The bones are quite osteopenic. There is no finding indicate hardware loosening or infection.
--- NOTE | 2023-02-06 13:41 | RAD REPORT ---
EXAM DESCRIPTION: RAD - Hip Right 2 View - 02/06/2023 1:01 pm CLINICAL HISTORY: PAIN COMPARISON: <Comparisons> FINDINGS: Right total hip arthroplasty is noted. There is additional hardware present in the region of the proximal shaft and distal right femur, incompletely included on the study. Subtrochanteric obl ique lucency is seen likely representing a fracture, age indeterminate but could be relatively recent given the lack of callus.
--- NOTE | 2023-02-06 13:42 | RAD REPORT ---
EXAM DESCRIPTION: RAD - Chest Single View - 02/06/2023 1:01 pm CLINICAL HISTORY: COUGH Chest pain. COMPARISON: <Comparisons> FINDINGS: Portable technique limits examination quality. The lungs are grossly clear. The heart is moderately enlarged in size. No displaced fractures. IMPRESSION: No acute intrathoracic process suspected.
--- NOTE | 2023-02-06 13:56 | RAD REPORT ---
EXAM DESCRIPTION: CT - Femur Right Wo Con - 02/06/2023 1:10 pm CLINICAL HISTORY: FALL, RT KNEE PAIN Fall, trauma, pain COMPARISON: No comparisons FINDINGS: There is an extensive hardware construct present spanning the right hip through the right knee patella proximal midshaft of the right tibia. Streak artifact limits assessment, however within this limitation there is no hardware abnormality seen. No evidence of a right knee joint effusion. No soft tissue mass or hematoma seen. Oblique subtrochanteric fracture is present spanning the femoral stem component. No significant callu s is seen, which would indicate this could be relatively recent fracture. IMPRESSION: Extensive right-sided hardware construct spanning from the level of the right hip to the mid right tibia. Sub trochanteric fracture spanning the femoral stem component. This may be a relati vely acute finding but age is indeterminate. All CT scans are performed using dose optimization technique as appropriate and may include automated exposure control or mA/KV adjustment according to patient size.
--- NOTE | 2023-02-06 14:08 | ER ---
Nurse's Notes [facility] Name: Anita Samayoa Age: 77 yrs Sex: Female : 1945 Arrival Date: 02/06/2023 Time: 11:08 Bed 17 Private MD: Diagnosis: Fall on same level, unspecified;Fracture of shaft of femur-subtrocanteric fracture , periposthetic;Unspecified kidney failure;half-way (current) use of anticoagulants Presentation: 02/06 11:18 Chief complaint: Patient states: Fell yesterday. Seen at [facility] [place] yesterday, negative ll1 x-rays. Dr. Jesus wanted her re-checked here today. EMS states: [facility]. Fingerstick 151. Coronavirus screen: Vaccine status: Patient reports being unvaccinated. Client denies travel out of the [place] in the last 14 days. At this time, the client does not indicate any symptoms associated with coronavirus-19. Ebola Screen: Patient denies travel to an Ebola-affected area in the 21 days before illness onset. Initial Sepsis Screen: Does the patient meet any 2 criteria? No. Patient's initial sepsis screen is negative. Does the patient have a suspected source of infection? Yes: Bone or joint infection. Risk Assessment: Do you want to hurt yourself or someone else? Patient reports no desire to harm self or others. Onset of symptoms was February 05, 2023. 11:18 Method Of Arrival: EMS: [facility] ll1 11:18 Acuity: TONIA 3 ll1 14:57 Care prior to arrival: None. Mechanism of Injury: Fall. Trauma event details: Injury tl4 occurred in the [facility]. Triage Assessment: 11:21 General: Appears uncomfortable, Behavior is calm, cooperative, appropriate for age. ll1 Pain: Complains of pain in R hip Pain radiates to R knee. Musculoskeletal: Reports pain in R hip and R knee. Injury Description: Bruise. Trauma Activation: Alert Physician: ED Physician; Name: ; Notified At: ; Arrived At: Physician: General Surgeon; Name: ; Notified At: ; Arrived At: Physician: Radiology; Name: ; Notified At: ; Arrived At: Physician: Respiratory; Name: ; Notified At: ; Arrived At: Physician: Lab; Name: ; Notified At: ; Arrived At: Historical: - Allergies: 11:17 Alphagan P; ll1 11:17 Celebrex; ll1 11:17 Codeine; ll1 - PMHx: 11:17 Diabetes - IDDM; Depression; Hyperlipidemia; Diabetes - NIDDM; Glaucoma; Hypertension; ll1 Pulmonary Embolism; - PSHx: 11:17 none recent (Pulmonary Embolism); ll1 - Immunization history:: Adult Immunizations up to date. - Social history:: Smoking status: Patient denies any tobacco usage or history of. - Immunization history: Last tetanus immunization: - up to date. Screenin:56 [facility] ED Fall Risk Assessment (Adult) Score/Fall Risk Level 3 or more points = High tl4 Risk Oriented to surroundings, Maintained a safe environment, Educated pt \T\ family on fall prevention, incl call for assistance when getting out of bed, Offered frequent toileting (1:1 observation), Utilized family, sitter, or virtual burlap worker as indicated. Abuse screen: Denies threats or abuse. Nutritional screening: No deficits noted. Tuberculosis screening: No symptoms or risk factors identified. Primary Survey: 14:56 NO uncontrolled hemorrhage observed. A: The client is awake and alert. The airway is tl4 patent. Breathing/Chest: Spontaneous respiratory effort, equal unlabored respirations, breath sounds clear bilaterally, regular pattern, symmetrical chest rise and fall. Circulation: No external hemorrhage present. Regular and strong central pulse, skin warm/dry/normal color. Disability Pupils are equal, round, reactive to light and accommodation. Exposure/Environment: There is no evidence of uncontrolled external bleeding. 14:57 Reassessment Breathing: Spontaneous respiratory effort, equal unlabored respirations, tl4 breath sounds clear bilaterally, regular pattern with symmetrical chest rise and fall. Assessment: 14:53 Reassessment: No changes from previously documented assessment. Patient and/or family tl4 updated on plan of care and expected duration. Pain level reassessed. Patient is alert, oriented x 3, equal unlabored respirations, skin warm/dry/pink. Vital Signs: 11:18 BP 138 / 63; Pulse 70; Resp 18; Temp 97.9; Pulse Ox 95% on R/A; Weight 99.79 kg; Height ll1 5 ft. 2 in. ; Pain 8/10; 12:00 BP 117 / 51; Pulse 58; Pulse Ox 98% ; tl4 13:30 BP 128 / 72; Pulse 63; Resp 18; Pulse Ox 94% ; tl4 14:44 BP 141 / 49; Pulse 65; Resp 18; Pulse Ox 95% on R/A; iw 15:12 BP 137 / 70; Pulse 63; Resp 18; Pulse Ox 97% on R/A; tl4 11:18 Body Mass Index 40.24 (99.79 kg, 157.48 cm) ll1 11:18 Pain Scale: Adult ll1 Jonathon Coma Score: 13:12 Eye Response: spontaneous(4). Motor Response: obeys commands(6). Verbal Response: kenia oriented(5). Total: 15. 14:56 Eye Response: spontaneous(4). Motor Response: obeys commands(6). Verbal Response: tl4 oriented(5). Total: 15. Trauma Score (Adult): 14:56 Eye Response: spontaneous(1); Verbal Response: oriented(1); Motor Response: obeys tl4 commands(2); Systolic BP: > 89 mm Hg(4); Respiratory Rate: 10 to 29 per min(4); Jonathon Score: 15; Trauma Score: 12 ED Course: 11:15 Patient arrived in ED. ll1 11:15 Riccardo Reyes MD is Attending Physician. rt 11:15 Provided Education on: ED process and procedures. tl4 11:16 Attending Physician role handed off by Riccardo Reyes MD kenia 11:16 Nicholas Roy MD is Attending Physician. kenia 11:17 Arm band placed on Patient placed in an exam room, on a stretcher. ll1 11:21 Triage completed. ll1 11:28 Jd Chavis is Primary Nurse. tl4 12:07 Basic Metabolic Panel Sent. tl4 12:07 CBC with Diff Sent. tl4 12:07 LFT's Sent. tl4 12:07 Magnesium Sent. tl4 12:08 NT PRO-BNP Sent. tl4 12:08 PT-INR Sent. tl4 12:08 Troponin HS Sent. tl4 12:08 Inserted saline lock: 20 gauge in left forearm, using aseptic technique. tl4 12:30 US Extremity Venous W Compression Lalo In Process Unspecified. EDMS 13:03 XRAY Chest (1 view) In Process Unspecified. EDMS 13:03 Pelvis XRAY In Process Unspecified. EDMS 13:03 Hip Right 2 View XRAY In Process Unspecified. EDMS 13:03 Femur Right XRAY In Process Unspecified. EDMS 13:03 Knee Right 3 View XRAY In Process Unspecified. EDMS 13:03 Tib Fib Right XRAY In Process Unspecified. EDMS 13:11 Femur Right Wo Con In Process Unspecified. EDMS 14:04 Dr. Roy Called [facility] to start transfer. sp 14:57 No provider procedures requiring assistance completed. Patient transferred, IV remains tl4 in place. 14:58 Patient has correct armband on for positive identification. Bed in low position. Call tl4 light in reach. Client placed on continuous cardiac and pulse oximetry monitoring. NIBP monitoring applied. 14:58 Patient maintains SpO2 saturation greater than 95% on room air. tl4 14:58 Thermoregulation: warm blanket given to patient. tl4 15:[address] Jas Black accepted pt to [facility]. sp 15:20 1413 Maria Antonia Cleaning RN TC admin approval to [facility] Report number [id number] sp talked to [facility] with [facility] for Transport. Administered Medications: 12:07 Drug: NS 0.9% IV 1000 ml IV at 125 ml/hr continuous Route: IV; Rate: 125 ml/hr; Site: tl4 left forearm; 15:23 Follow up: Response: No adverse reaction; IV Status: Completed infusion; IV Intake: ll1 200ml 12:07 Drug: fentaNYL (PF) IVP 50 mcg IVP once Route: IVP; Infused Over: 2 mins; Site: left tl4 forearm; 15:24 Follow up: Response: No adverse reaction ll1 12:07 Drug: Ondansetron IVP 4 mg IVP once; over 2 minutes Route: IVP; Infused Over: 2 mins; tl4 Site: left forearm; 15:24 Follow up: Response: No adverse reaction ll1 14:38 Drug: Ondansetron IVP 4 mg IVP once; over 2 minutes Route: IVP; Site: right antecubital;iw 15:23 Follow up: Response: No adverse reaction ll1 14:40 Drug: morphine IVP or IV 4 mg IVP once over 4 mins Route: IVP; Infused Over: 4 mins; iw Site: right antecubital; 15:23 Follow up: Response: No adverse reaction ll1 Medication: 14:57 VIS not applicable for this client. tl4 Intake: 15:23 IV: 200ml; Total: 200ml. ll1 Output: 14:58 Urine: 100ml (Voided); Total: 100ml. tl4 Outcome: 14:07 ER care complete, transfer ordered by . [facility] 14:53 Transferred by ground EMS to [facility], Transfer form completed. tl4 14:53 Transferred Note: report called to EDUARD Ness at [facility] 14:53 Condition: stable 14:53 Instructed on the need for transfer, 15:23 Patient's length of stay was not longer than 2 hours. ll1 15:24 Patient left the ED. ll1 Signatures: Dispatcher [employer] EDMS Nicholas Roy MD MD cha Pinkerton, Shawna sp Williams, Irene, RN RN iw Lewis, Lynsay, RN RN ll1 Riccardo Reyes MD MD rt Logdahl, Jd tl4
--- NOTE | 2023-02-06 14:08 | EDPHYS ---
Physician Documentation [facility] Name: Anita Samayoa Age: 77 yrs Sex: Female : 1945 Arrival Date: 02/06/2023 Time: 11:08 Bed 17 Private MD: ED Physician Nicholas Roy HPI: 02/06 13:11 This 77 yrs old Female presents to ER via EMS with complaints of Fall Injury, kenia Hip Injury. 13:11 Details of fall: The patient fell from an upright position, while walking. Onset: The kenia symptoms/episode began/occurred 1 day(s) ago. Associated injuries: The patient sustained right hip and right knee, decreased range of motion, painful injury. Severity of symptoms: At their worst the symptoms were moderate, yesterday, in the emergency department the symptoms are unchanged. The patient has not experienced similar symptoms in the past. Historical: - Allergies: 11:17 Alphagan P; ll1 11:17 Celebrex; ll1 11:17 Codeine; ll1 - PMHx: 11:17 Diabetes - IDDM; Depression; Hyperlipidemia; Diabetes - NIDDM; Glaucoma; Hypertension; ll1 Pulmonary Embolism; - PSHx: 11:17 none recent (Pulmonary Embolism); ll1 - Immunization history:: Adult Immunizations up to date. - Social history:: Smoking status: Patient denies any tobacco usage or history of. - Immunization history: Last tetanus immunization: - up to date. ROS: 13:12 Constitutional: Negative for fever, chills, and weight loss, Eyes: Negative for injury, kenia pain, redness, and discharge, ENT: Negative for injury, pain, and discharge, Neck: Negative for injury, pain, and swelling, Cardiovascular: Negative for chest pain, palpitations, and edema, Respiratory: Negative for shortness of breath, cough, wheezing, and pleuritic chest pain, Abdomen/GI: Negative for abdominal pain, nausea, vomiting, diarrhea, and constipation, Back: Negative for injury and pain, : Negative for injury, bleeding, discharge, and swelling, Skin: Negative for injury, rash, and discoloration, Neuro: Negative for headache, weakness, numbness, tingling, and seizure, Psych: Negative for depression, anxiety, suicide ideation, homicidal ideation, and hallucinations, Allergy/Immunology: Negative for hives, rash, and allergies, Endocrine: Negative for neck swelling, polydipsia, polyuria, polyphagia, and marked weight changes, Hematologic/Lymphatic: Negative for swollen nodes, abnormal bleeding, and unusual bruising, 13:12 MS/extremity: Positive for decreased range of motion, pain, swelling, tenderness, of the right leg, Exam: 13:12 Constitutional: This is a well developed, well nourished patient who is awake, alert, kenia and in no acute distress. Head/Face: Normocephalic, atraumatic. Eyes: Pupils equal round and reactive to light, extra-ocular motions intact. Lids and lashes normal. Conjunctiva and sclera are non-icteric and not injected. Cornea within normal limits. Periorbital areas with no swelling, redness, or edema. ENT: Nares patent. No nasal discharge, no septal abnormalities noted. Tympanic membranes are normal and external auditory canals are clear. Oropharynx with no redness, swelling, or masses, exudates, or evidence of obstruction, uvula midline. Mucous membranes moist. Neck: Trachea midline, no thyromegaly or masses palpated, and no cervical lymphadenopathy. Supple, full range of motion without nuchal rigidity, or vertebral point tenderness. No Meningismus. Chest/axilla: Normal chest wall appearance and motion. Nontender with no deformity. No lesions are appreciated. Cardiovascular: Regular rate and rhythm with a normal S1 and S2. No gallops, murmurs, or rubs. Normal PMI, no JVD. No pulse deficits. Respiratory: Lungs have equal breath sounds bilaterally, clear to auscultation and percussion. No rales, rhonchi or wheezes noted. No increased work of breathing, no retractions or nasal flaring. Abdomen/GI: Soft, non-tender, with normal bowel sounds. No distension or tympany. No guarding or rebound. No evidence of tenderness throughout. Back: No spinal tenderness. No costovertebral tenderness. Full range of motion. Skin: Warm, dry with normal turgor. Normal color with no rashes, no lesions, and no evidence of cellulitis. Neuro: Awake and alert, GCS 15, oriented to person, place, time, and situation. Cranial nerves II-XII grossly intact. Motor strength 5/5 in all extremities. Sensory grossly intact. Cerebellar exam normal. Normal gait. Psych: Awake, alert, with orientation to person, place and time. Behavior, mood, and affect are within normal limits. 13:12 Musculoskeletal/extremity: ROM: limited active range of motion, limited passive range of motion, in the right leg, Circulation is intact in all extremities. Sensation intact. Compartment Syndrome exam of affected extremity: is normal. Vital Signs: 11:18 BP 138 / 63; Pulse 70; Resp 18; Temp 97.9; Pulse Ox 95% on R/A; Weight 99.79 kg; Height ll1 5 ft. 2 in. ; Pain 8/10; 12:00 BP 117 / 51; Pulse 58; Pulse Ox 98% ; tl4 13:30 BP 128 / 72; Pulse 63; Resp 18; Pulse Ox 94% ; tl4 14:44 BP 141 / 49; Pulse 65; Resp 18; Pulse Ox 95% on R/A; iw 15:12 BP 137 / 70; Pulse 63; Resp 18; Pulse Ox 97% on R/A; tl4 11:18 Body Mass Index 40.24 (99.79 kg, 157.48 cm) ll1 11:18 Pain Scale: Adult ll1 Jonathon Coma Score: 13:12 Eye Response: spontaneous(4). Motor Response: obeys commands(6). Verbal Response: kenia oriented(5). Total: 15. 14:56 Eye Response: spontaneous(4). Motor Response: obeys commands(6). Verbal Response: tl4 oriented(5). Total: 15. Trauma Score (Adult): 14:56 Eye Response: spontaneous(1); Verbal Response: oriented(1); Motor Response: obeys tl4 commands(2); Systolic BP: > 89 mm Hg(4); Respiratory Rate: 10 to 29 per min(4); Jonathon Score: 15; Trauma Score: 12 MDM: 11:16 Patient medically screened. kenia 13:13 Differential diagnosis: hip fracture, intertrochanteric fracture, femoral neck kenia fracture, femoral shaft fracture, strain. Differential diagnosis: contusion, sprain, strain. Data reviewed: vital signs, nurses notes, EMS record, lab test result(s), radiologic studies, CT scan, plain films. Consideration of Admission/Observation Escalation of care including admission/observation considered. I considered the following discharge prescriptions or medication management in the emergency department Medications were administered in the Emergency Department. See MAR. Discussion of test interpretation with radiology: I had a discussion with radiology regarding a test interpretation. x ray and ct for fx and or dislocation. 02/06 11:18 Order name: Basic Metabolic Panel; Complete Time: 12:56 [facility] 02/06 11:18 Order name: CBC with Diff; Complete Time: 12:56 [facility] 02/06 11:18 Order name: LFT's; Complete Time: 12:56 [facility] 02/06 11:18 Order name: Magnesium; Complete Time: 12:56 [facility] 02/06 11:18 Order name: NT PRO-BNP; Complete Time: 12:56 [facility] 02/06 11:18 Order name: PT-INR; Complete Time: 12:56 [facility] 02/06 11:18 Order name: Troponin HS; Complete Time: 12:56 [facility] 02/06 11:18 Order name: XRAY Chest (1 view) [facility] 02/06 11:18 Order name: Pelvis XRAY [facility] 02/06 11:18 Order name: Hip Right 2 View XRAY [facility] 02/06 11:18 Order name: Femur Right XRAY [facility] 02/06 11:18 Order name: Knee Right 3 View XRAY [facility] 02/06 11:18 Order name: Tib Fib Right XRAY [facility] 02/06 11:18 Order name: US Extremity Venous W Compression Lalo; Complete Time: 13:27 [facility] 02/06 13:11 Order name: Femur Right Wo Con EDMS 02/06 11:18 Order name: EKG; Complete Time: 11:19 [facility] 02/06 11:18 Order name: Cardiac monitoring; Complete Time: 11:33 [facility] 02/06 11:18 Order name: EKG - Nurse/Tech; Complete Time: 11:33 [facility] 02/06 11:18 Order name: IV Saline Lock; Complete Time: 12:07 [facility] 02/06 11:18 Order name: Labs collected and sent; Complete Time: 12:07 [facility] 02/06 11:18 Order name: O2 Per Protocol; Complete Time: 11:22 [facility] 02/06 11:18 Order name: O2 Sat Monitoring; Complete Time: 11:22 [facility] Administered Medications: 12:07 Drug: NS 0.9% IV 1000 ml IV at 125 ml/hr continuous Route: IV; Rate: 125 ml/hr; Site: tl4 left forearm; 15:23 Follow up: Response: No adverse reaction; IV Status: Completed infusion; IV Intake: ll1 200ml 12:07 Drug: fentaNYL (PF) IVP 50 mcg IVP once Route: IVP; Infused Over: 2 mins; Site: left tl4 forearm; 15:24 Follow up: Response: No adverse reaction ll1 12:07 Drug: Ondansetron IVP 4 mg IVP once; over 2 minutes Route: IVP; Infused Over: 2 mins; tl4 Site: left forearm; 15:24 Follow up: Response: No adverse reaction ll1 14:38 Drug: Ondansetron IVP 4 mg IVP once; over 2 minutes Route: IVP; Site: right antecubital;iw 15:23 Follow up: Response: No adverse reaction ll1 14:40 Drug: morphine IVP or IV 4 mg IVP once over 4 mins Route: IVP; Infused Over: 4 mins; iw Site: right antecubital; 15:23 Follow up: Response: No adverse reaction ll1 Disposition Summary: 02/06/23 14:07 Transfer Ordered Notes: Transfer Location: [facility] kenia Reason: Higher level of care kenia Condition: Stable kenia Problem: new kenia Symptoms: have improved kenia Accepting Physician: evita lizama(02/06/23 15:24) ll1 Diagnosis - Fall on same level, unspecified kenia - Fracture of shaft of femur - subtrocanteric fracture , periposthetic kenia - Unspecified kidney failure kenia - [facility] (current) use of anticoagulants kenia Forms: - Medication Reconciliation Form kenia - SBAR form kenia Signatures: Dispatcher [employer] EDMS Nicholas Roy MD MD cha Williams, Irene, RN RN Isauro Milan RN RN ll1 Jd Chavis tl4 Corrections: (The following items were deleted from the chart) 13:11 13:03 Knee Right Wo Cont ordered. EDMS EDMS 13:11 13:04 Hip Right Wo Con ordered. EDMS EDMS 15:24 14:07 to dl aquino 1
[2023-02-06] MEDS ORDERED: ONDANSETRON 4 MG/2 ML VIAL ONE (14:46)
[2023-02-06] MEDS ORDERED: MORPHINE 4 MG/ML SYR ONE (14:46)
[2023-02-06 15:42] VITALS: TEMP 97.9
[2023-02-06 15:51] VITALS: BP 137/70; O2SAT 97
--- NOTE | 2023-02-08 16:57 | EKG ---
Test Date: 2023-02-06 Test Time: 11:29:12 Catering Driver: FRANCES MEASUREMENT RESULTS: Intervals: Rate: 59 TN: 168 QRSD: 80 QT: 444 QTc: 439 [place]: P: 44 TN: 168 QRS: 20 T: 50 INTERPRETIVE STATEMENTS: Sinus bradycardia Otherwise normal ECG Compared to ECG 10/17/2019 10:48:10 Sinus rhythm no longer present Ventricular premature complex(es) no longer present Electronically Signed On 02-08-23 16:52:09 HUMAN RESOURCE ASSISTANT by Lio Sparks
== END 2023-02-06 15:24 | disposition short-term general hospital (02) ==
LOC: ER 11:08
DX: S72.391A Other fracture of shaft of right femur, initial encounter for closed fracture (principal); M97.01XA Periprosthetic fracture around internal prosthetic right hip joint, initial encounter; W18.30XA Fall on same level, unspecified, initial encounter; N19 Unspecified kidney failure; Z79.01 Long term (current) use of anticoagulants; E11.9 Type 2 diabetes mellitus without complications; I10 Essential (primary) hypertension; Z86.711 Personal history of pulmonary embolism; Z88.5 Allergy status to narcotic agent; Z88.8 Allergy status to other drugs, medicaments and biological substances
CPT/HCPCS: 93005; 85025; 80048; 36415; 83735; 85610; 80076; 84484; 83880; 73700; 71045; 72170; 73502; 73562; 73552; 73590; 93970; 99285; J2405

== ENCOUNTER 2023-08-19 16:05 | Inpatient (IN) | payer OTHER, BC ==
[2023-08-19] MEDS ORDERED: NA CHLORIDE 0.9% 1,000 ML ONE ×2 (16:50→20:08)
[2023-08-19] MEDS ORDERED: CEFTRIAXONE 1000 MG/VIAL ONE (16:50)
--- NOTE | 2023-08-19 16:50 | RAD REPORT ---
EXAM DESCRIPTION: RAD - Chest Single View - 08/19/2023 4:39 pm CLINICAL HISTORY: COUGH COMPARISON: Chest Single View dated 02/06/2023; Chest Pa And Lat (2 Views) dated 10/31/2019; Chest Si ngle View dated 10/16/2019; Chest Single View dated 10/17/2018 FINDINGS: Lines: None. Lungs: Mild hazy opacities at the lateral left lung base. Pleural: No significant pleural effusions or pneumothorax. Cardiac: Similar size and configuration. Mediastinum: Within normal limits. Bones: No acute fractures. Other: None IMPRESSION: Possible airspace disease at the lateral left lung base. The should be included in the f ield of view on the pending CT of the abdomen pelvis.
[2023-08-19] MEDS ORDERED: NA CHLORIDE 0.9% 50 ML ONE (16:51)
--- NOTE | 2023-08-19 17:10 | RAD REPORT ---
EXAM DESCRIPTION: CTStone Protocol - 08/19/2023 4:55 pm CLINICAL HISTORY: FLANK PAIN COMPARISON: Abdomen Pelvis W/Wo Contrast dated 02/02/2018; Stone Protocol dated 10/26/2015 TECHNIQUE: CT of the abdomen and pelvis was performed without contrast. All CT scans are performed using dose optimization technique as appropriate and may include automated exposure control or mA/KV adjustment according to patient size. FINDINGS: Lower chest: Coronary artery calcification versus stent in the right main coronary artery. Liver: No acute abnormality or suspicious lesions. Biliary: No biliary ductal dilatation. Stomach: No significant focal abnormality. Duodenum: No significant focal abnormality. Pancreas: No significant abnormality. Spleen: No significant abnormality. Adrenal: No suspicious lesions. Kidney/ureter: No hydronephrosis. 9 mm stone in the left renal pelvis. Other left renal calculi noted . Bilateral renal scarring. Low-density renal lesions noted which are consistent with cysts. Retroperitoneum: No retroperitoneal adenopathy. Vascular: No aneurysm. Atherosclerosis. IVC filter with tines extending beyond the lumen of the IVC. Bowel: No appendix identified. No secondary signs of acute appendicitis. No bowel obstruction. Divert iculosis predominantly at the sigmoid but no evidence of acute diverticulitis .. Peritoneum: No ascites or free air. Bladder: Grossly unremarkable. Reproductive: No adnexal masses. Bones: No acute fracture. Bilateral hip arthroplasties. Severe disc height loss at L5-S1 Other: n/a IMPRESSION: Nonobstructing stones in left kidney including a 9 mm left renal pelvis stone. No hydron ephrosis. Bilateral renal scarring. No acute findings within the abdomen or pelvis.
[2023-08-19 17:26] LABS: Absolute Basophils 0.1 K/uL (0-0.5); Absolute Eosinophils 0.2 K/uL (0-0.5); Absolute Lymphocytes (CBC) 2.9 K/uL (0.7-4.9); Absolute Monocytes 0.8 K/uL (0.1-1.3); Absolute Neutrophil 4.1 K/uL (1.8-8.0); Basophils % 1.1 % (0-1.3); Eosinophils % 2.8 % (0-4.4); Hemoglobin 10.7 g/dL (12.0-15.0); Lymphocytes % 35.9 % (15.3-44.8); MCH 26.9 pg (27.0-35.0); MCHC 31.5 g/dL (32.0-36.0); MCV 85.5 fL (80-100); MPV 8.7 fL (7.6-11.3); Neutrophils % 50.2 % (41.7-73.7); Platelets 206 thou/uL (152-406); RBC Red Blood Cell Count 3.97 M/uL (3.86-4.86); Red Cell Distribution Width 16.5 % (12.1-15.2)
[2023-08-19 17:41] LABS: PT Prothrombin Time 15.1 SECONDS (9.5-12.5); Protime INR 1.39
[2023-08-19 17:47] LABS: Albumin/Globulin Ratio 0.8 (1.1-1.8); Anion Gap 8.9 mEq/L (5.0-15.0); Bilirubin Direct 0.2 mg/dL (0-0.2); Bilirubin Indirect, Calculated 0.4 mg/dL (0.2-0.8); Bilirubin Total 0.6 mg/dL (0.2-1.0); Globulin 3.8 g/dL (2.3-3.5); Magnesium 1.7 mg/dL (1.6-2.4); Potassium 4.9 mEq/L (3.5-5.1); Protein, Total 6.8 g/dL (6.4-8.2); Troponin High Sensitivity 9.5 pg/mL (<58.9)
[2023-08-19 19:11] LABS: Specific Gravity 1.015 (1.005-1.030); Sqamous Epithelial None Seen /HPF (None Seen); Urine Bacteria 20-50 /HPF (<20); Urine Bilirubin NEGATIVE (Negative); Urine Blood 3+ (OVER) (Negative); Urine Clarity Extremely Turbid (Clear); Urine Color Light-Orange (Yellow); Urine Culture Reflex Order REFLEXED; Urine Glucose NEGATIVE (Negative); Urine Ketones NEGATIVE (Negative); Urine Microscopic Reflex YN ORDER UMIC; Urine Nitrite 2+ (Negative); Urine Protein 2+ (Negative); Urine RBC >50 /HPF (None Seen); Urine Urobilinogen Normal (Normal); Urine WBC >50 /HPF (<5)
--- NOTE | 2023-08-19 19:17 | EDPHYS ---
Physician Documentation [facility] Name: Anita Samayoa Age: 77 yrs Sex: Female : 1945 Arrival Date: 08/19/2023 Time: 16:05 Bed 20 Private MD: ED Physician Nicholas Roy HPI: 08/18 19:08 This 77 yrs old Female presents to ER via Wheelchair with complaints of kenia Weakness, Urinary Problem. 19:08 The patient presents to the emergency department with weakness of the entire body, kenia generalized weakness. Historical: - Allergies: 16:37 Alphagan P; cm10 16:37 Celebrex; cm10 16:37 Codeine; cm10 - PMHx: 16:37 Glaucoma; Hypertension; Pulmonary Embolism; Diabetes - NIDDM; Diabetes - IDDM; cm10 Depression; Hyperlipidemia; - PSHx: 16:37 none recent (ar); cm10 - Immunization history:: Adult Immunizations up to date. - Infectious Disease History:: Denies. - Social history:: Smoking status: Patient denies any tobacco usage or history of. ROS: 19:09 Constitutional: Negative for fever, chills, and weight loss, Eyes: Negative for injury, kenia pain, redness, and discharge, ENT: Negative for injury, pain, and discharge, Neck: Negative for injury, pain, and swelling, Cardiovascular: Negative for chest pain, palpitations, and edema, Respiratory: Negative for shortness of breath, cough, wheezing, and pleuritic chest pain, Abdomen/GI: Negative for abdominal pain, nausea, vomiting, diarrhea, and constipation, Back: Negative for injury and pain, MS/Extremity: Negative for injury and deformity, Skin: Negative for injury, rash, and discoloration, Psych: Negative for depression, anxiety, suicide ideation, homicidal ideation, and hallucinations, Allergy/Immunology: Negative for hives, rash, and allergies, Endocrine: Negative for neck swelling, polydipsia, polyuria, polyphagia, and marked weight changes, 19:09 : Positive for urinary symptoms, flank pain, urinary frequency, hematuria, burning with urination, difficulty urinating, 19:09 Neuro: Positive for dizziness, weakness, Exam: 19:09 Constitutional: This is a well developed, well nourished patient who is awake, alert, kenia and in no acute distress. Head/Face: Normocephalic, atraumatic. Eyes: Pupils equal round and reactive to light, extra-ocular motions intact. Lids and lashes normal. Conjunctiva and sclera are non-icteric and not injected. Cornea within normal limits. Periorbital areas with no swelling, redness, or edema. ENT: Nares patent. No nasal discharge, no septal abnormalities noted. Tympanic membranes are normal and external auditory canals are clear. Oropharynx with no redness, swelling, or masses, exudates, or evidence of obstruction, uvula midline. Mucous membranes moist. Neck: Trachea midline, no thyromegaly or masses palpated, and no cervical lymphadenopathy. Supple, full range of motion without nuchal rigidity, or vertebral point tenderness. No Meningismus. Chest/axilla: Normal chest wall appearance and motion. Nontender with no deformity. No lesions are appreciated. Cardiovascular: Regular rate and rhythm with a normal S1 and S2. No gallops, murmurs, or rubs. Normal PMI, no JVD. No pulse deficits. Respiratory: Lungs have equal breath sounds bilaterally, clear to auscultation and percussion. No rales, rhonchi or wheezes noted. No increased work of breathing, no retractions or nasal flaring. Abdomen/GI: Soft, non-tender, with normal bowel sounds. No distension or tympany. No guarding or rebound. No evidence of tenderness throughout. Back: No spinal tenderness. No costovertebral tenderness. Full range of motion. Female : Normal external genitalia. Skin: Warm, dry with normal turgor. Normal color with no rashes, no lesions, and no evidence of cellulitis. MS/ Extremity: Pulses equal, no cyanosis. Neurovascular intact. Full, normal range of motion. Neuro: Awake and alert, GCS 15, oriented to person, place, time, and situation. Cranial nerves II-XII grossly intact. Motor strength 5/5 in all extremities. Sensory grossly intact. Cerebellar exam normal. Normal gait. Psych: Awake, alert, with orientation to person, place and time. Behavior, mood, and affect are within normal limits. 19:09 ECG was reviewed by the Attending Physician. 19:09 : CVA tenderness, is absent, Pelvic Exam: is not necessary for this patient, Sexual behavior: the patient is not sexually active, Vital Signs: 16:36 BP 158 / 79; Pulse 80; Resp 18; Temp 98.1; Pulse Ox 98% on R/A; Weight 95.25 kg; Height cm10 5 ft. 3 in. ; Pain 0/10; 17:30 BP 122 / 69; Pulse 60; Resp 16; Pulse Ox 98% on R/A; me1 18:30 BP 165 / 75; Pulse 69; Resp 14; Pulse Ox 96% on R/A; me1 19:00 BP 155 / 74; Pulse 65; Resp 16; Pulse Ox 96% on R/A; me1 20:00 BP 157 / 75; Pulse 63; Resp 18; Pulse Ox 96% on R/A; me1 20:00 BP 156 / 73; Pulse 66; Resp 18; Pulse Ox 96% on R/A; me1 16:36 Body Mass Index 37.20 (95.25 kg, 160.02 cm) cm10 16:36 Pain Scale: Adult cm10 MDM: 16:27 Patient medically screened. kenia 19:11 Differential diagnosis: kidney stone, nonspecific abdominal pain, urinary tract kenia infection. Differential Diagnosis altered mental status, sepsis, flu. Data reviewed: vital signs, nurses notes, lab test result(s), EKG, radiologic studies, CT scan, plain films. Consideration of Admission/Observation Patient was admitted/placed on observation. Escalation of care including admission/observation considered. I considered the following discharge prescriptions or medication management in the emergency department Medications were administered in the Emergency Department. See MAR. Independent interpretation of the following test(s) in the Emergency Department EKG: See my EKG interpretation above. Test considered but Not performed: Ultrasound no abd usg. Historians other than the Patient: Spouse/Significant Other: well informed. Care significantly affected by the following chronic conditions: Diabetes, Hypertension, Obesity, Chronic Kidney Disease, pe, glaucoma. Counseling: I had a detailed discussion with the patient and/or guardian regarding the historical points, exam findings, and any diagnostic results supporting the discharge/admit diagnosis, lab results, radiology results, the need for further work-up and treatment in the hospital. ED course: improved. 08/18 16:29 Order name: Basic Metabolic Panel; Complete Time: 19:02 [facility] 08/18 16:29 Order name: CBC with Diff; Complete Time: 19:02 [facility] 08/18 16:29 Order name: LFT's; Complete Time: 19:02 [facility] 08/18 16:29 Order name: Magnesium; Complete Time: 19:02 [facility] 08/18 16:29 Order name: NT PRO-BNP; Complete Time: 19:02 [facility] 08/18 16:29 Order name: PT-INR; Complete Time: 19:02 [facility] 08/18 16:29 Order name: Troponin HS; Complete Time: 19:02 [facility] 08/18 16:29 Order name: Lipase; Complete Time: 19:02 [facility] 08/18 16:29 Order name: Urinalysis w/ reflexes; Complete Time: 19:16 [facility] 08/18 16:29 Order name: Blood Culture Adult (2) [facility] 08/18 16:29 Order name: Lactate w/ 2H reflex if indic.; Complete Time: 19:02 [facility] 08/18 19:06 Order name: Urine Culture [facility] 08/18 19:54 Order name: Urinalysis w/ reflexes EDMS 08/18 19:54 Order name: CBC with Automated Diff EDMS 08/18 19:54 Order name: CBC with Automated Diff EDMS 08/18 19:54 Order name: Comprehensive Metabolic Panel EDMS 08/18 19:54 Order name: Comprehensive Metabolic Panel EDMS 08/18 16:29 Order name: XRAY Chest (1 view); Complete Time: 19:02 [facility] 08/18 16:29 Order name: CT Stone Protocol; Complete Time: 19:02 [facility] 08/18 16:29 Order name: Cardiac monitoring; Complete Time: 16:45 [facility] 08/18 16:29 Order name: EKG - Nurse/Tech; Complete Time: 16:45 [facility] 08/18 16:29 Order name: IV Saline Lock; Complete Time: 17:13 [facility] 08/18 16:29 Order name: Labs collected and sent; Complete Time: 17:13 [facility] 08/18 16:29 Order name: O2 Per Protocol; Complete Time: 16:59 [facility] 08/18 16:29 Order name: O2 Sat Monitoring; Complete Time: 16:59 [facility] 08/18 18:30 Order name: Cath: straight cath; Complete Time: 19:45 ll1 EC:09 Rate is 69 beats/min. Rhythm is regular. QRS [place] is Normal. [place] interval is normal. QRS kenia interval is normal. QT interval is normal. No Q waves. T waves are Normal. No ST changes noted. Clinical impression: NSR w/ Non-specific ST/T Changes and No evidence of ischemia. Interpreted by me. Reviewed by me. Administered Medications: 17:07 Drug: NS 0.9% IV 1000 ml IV at 1 bolus Per protocol; 1000 mL bolus Route: IV; Rate: 1 db bolus; Site: right antecubital; 20:59 Follow up: Response: No adverse reaction; IV Status: Completed infusion me1 17:18 Drug: Rocephin IV 1 grams IV at per protocol once; Given slow IV push per pharmacy db instructions Route: IV; Rate: per protocol; Site: right antecubital; 20:59 Follow up: Response: No adverse reaction; IV Status: Completed infusion me1 20:12 Drug: Meropenem IV 1 grams IV at per protocol once; (mix in NS 100 mL) Route: IV; Rate: me1 per protocol; Site: right antecubital; 20:59 Follow up: IV Status: Infusion continued upon admission me1 20:12 Drug: NS 0.9% IV 1000 ml IV at 1 bolus Per protocol; 1000 mL bolus Route: IV; Rate: 1 me1 bolus; Site: right antecubital; 20:59 Follow up: IV Status: Infusion continued upon admission me1 20:12 Drug: Flomax PO 0.4 mg PO once Route: PO; me1 20:59 Follow up: Response: No adverse reaction me1 Disposition Summary: 08/19/23 19:16 Hospitalization Ordered Notes: Hospitalization Status: Inpatient Admission kenia Provider: Jeferson Torre cha [facility] kenia Condition: Fair kenia Problem: new kenia Symptoms: have improved kenia Bed/Room Type: Standard kenia Room Assignment: 231(08/19/23 20:10) ty Diagnosis - UTI/ Urinary tract infection, site not specified kenia - Hematuria, unspecified kenia - Acute cystitis with hematuria kenia - Obesity, unspecified kenia - [facility] (current) use of anticoagulants - ELIQUS kenia - Unspecified kidney failure - CHRONIC kenia - Calculus of kidney - NON OBSTRUCTING STONE LEFT KIDNEY, NO HYDRONEPHROSIS, 9 MM kenia STONE Forms: - Medication Reconciliation Form kenia - SBAR form kenia - Leadership Thank You Letter kenia Signatures: Dispatcher [employer] Nicholas Alfred MD MD cha Lewis, Lynsay, RN RN ll1 Mahogany Peoples RN RN db Yanci Davis RN RN cm10 Gail Marti, RN RN me1 Prakash Dover ty Corrections: (The following items were deleted from the chart) 16: 16:29 Chest Single View+RAD.RAD.BRZ ordered. EDMS EDMS 16:30 16:30 Stone Protocol+CT.RAD.BRZ ordered. EDMS EDMS 19:06 19:06 Urine Culture+BA.LAB.BRZ ordered. EDMS EDMS 20:10 19:16 kenia ty
--- NOTE | 2023-08-19 19:17 | ER ---
Nurse's Notes [facility] Larry Name: Anita Samayoa Age: 77 yrs Sex: Female : 1945 Arrival Date: 08/19/2023 Time: 16:05 Bed 20 Private MD: Diagnosis: UTI/ Urinary tract infection, site not specified;Hematuria, unspecified;Acute cystitis with hematuria;Obesity, unspecified;detention (current) use of anticoagulants-ELIQUS ;Unspecified kidney failure-CHRONIC;Calculus of kidney-NON OBSTRUCTING STONE LEFT KIDNEY, NO HYDRONEPHROSIS, 9 MM STONE Presentation: 08/18 16:36 Chief complaint: Patient states: Burning with urination onset 2 days ago. pt states cm10 that she is also feeling weak. Coronavirus screen: Client denies travel out of the [place] in the last 14 days. At this time, the client does not indicate any symptoms associated with coronavirus-19. Ebola Screen: Patient denies travel to an Ebola-affected area in the 21 days before illness onset. No symptoms or risks identified at this time. Initial Sepsis Screen: Does the patient meet any 2 criteria? No. Patient's initial sepsis screen is negative. Does the patient have a suspected source of infection? No. Patient's initial sepsis screen is negative. Risk Assessment: Do you want to hurt yourself or someone else? Patient reports no desire to harm self or others. Onset of symptoms was August 19, 2023. 16:36 Method Of Arrival: Wheelchair cm10 16:36 Acuity: TONIA 3 cm10 Historical: - Allergies: 16:37 Alphagan P; cm10 16:37 Celebrex; cm10 16:37 Codeine; cm10 - PMHx: 16:37 Glaucoma; Hypertension; Pulmonary Embolism; Diabetes - NIDDM; Diabetes - IDDM; cm10 Depression; Hyperlipidemia; - PSHx: 16:37 none recent (ar); cm10 - Immunization history:: Adult Immunizations up to date. - Infectious Disease History:: Denies. - Social history:: Smoking status: Patient denies any tobacco usage or history of. Screenin:30 [facility] ED Fall Risk Assessment (Adult) History of falling in the last 3 months, me1 including since admission No falls in past 3 months (0 pts) Confusion or Disorientation No (0 pts) Intoxicated or Sedated No (0 pts) Impaired Gait Yes (1 pt) Mobility Assist Device Used Yes (1 pt) Altered Elimination No (0 pt) Score/Fall Risk Level 0 - 2 = Low Risk Maintained a safe environment, Provided non-skid footwear, Hourly rounding (assess needs \T\ fall precautionary measures) done. Abuse screen: Denies threats or abuse. Nutritional screening: No deficits noted. Tuberculosis screening: No symptoms or risk factors identified. Assessment: 16:30 General: Appears uncomfortable, well groomed, well developed, well nourished, Behavior me1 is calm, cooperative, appropriate for age, Reports Burning with urination onset 2 days ago. pt states that she is also feeling weak. Pain: Denies pain. Neuro: Level of Consciousness is awake, alert, obeys commands, Oriented to person, place, time, situation, Appropriate for age. Cardiovascular: Patient's skin is warm and dry. Respiratory: Airway is patent Respiratory effort is even, unlabored, Respiratory pattern is regular, symmetrical. GI: No signs and/or symptoms were reported involving the gastrointestinal system. : Reports burning with urination, since 2 days ago. EENT: No signs and/or symptoms were reported regarding the EENT system. Derm: Skin is intact, is healthy with good turgor, Skin is pink, warm \T\ dry. normal. Musculoskeletal: No signs and/or symptoms reported regarding the musculoskeletal system. 20:35 General: faxed report. Receipt confirmed with Radha.. me1 Vital Signs: 16:36 BP 158 / 79; Pulse 80; Resp 18; Temp 98.1; Pulse Ox 98% on R/A; Weight 95.25 kg; Height cm10 5 ft. 3 in. ; Pain 0/10; 17:30 BP 122 / 69; Pulse 60; Resp 16; Pulse Ox 98% on R/A; me1 18:30 BP 165 / 75; Pulse 69; Resp 14; Pulse Ox 96% on R/A; me1 19:00 BP 155 / 74; Pulse 65; Resp 16; Pulse Ox 96% on R/A; me1 20:00 BP 157 / 75; Pulse 63; Resp 18; Pulse Ox 96% on R/A; me1 20:00 BP 156 / 73; Pulse 66; Resp 18; Pulse Ox 96% on R/A; me1 16:36 Body Mass Index 37.20 (95.25 kg, 160.02 cm) cm10 16:36 Pain Scale: Adult cm10 ED Course: 16:09 Patient arrived in ED. ra3 16:27 Nicholas Roy MD is Attending Physician. kenia 16:30 Patient has correct armband on for positive identification. Bed in low position. Call me1 light in reach. Side rails up X2. Provided Education on: POC. Verbalized understanding. . Client placed on continuous cardiac and pulse oximetry monitoring. NIBP monitoring applied. Pulse ox on. NIBP on. 16:30 No provider procedures requiring assistance completed. me1 16:32 Gial Marti, EDUARD is Primary Nurse. me1 16:37 Triage completed. cm10 16:37 Arm band placed on Patient placed in an exam room, on a stretcher, on pulse oximetry. cm10 16:41 XRAY Chest (1 view) In Process Unspecified. EDMS 16:45 EKG done, by ED staff, reviewed by Nicholas Roy MD. em1 16:47 First set of blood cultures drawn by me. db 16:57 CT Stone Protocol In Process Unspecified. EDMS 17:07 Inserted saline lock: 20 gauge in right antecubital area, using aseptic technique. db Blood collected. 17:07 Initial lab(s) drawn, by me, sent to lab. db 17:07 Second set of blood cultures drawn. db 19:14 Jeferson Torre MD is Hospitalizing Provider. kenia 20:58 Patient admitted, IV remains in place. me1 Administered Medications: 17:07 Drug: NS 0.9% IV 1000 ml IV at 1 bolus Per protocol; 1000 mL bolus Route: IV; Rate: 1 db bolus; Site: right antecubital; 20:59 Follow up: Response: No adverse reaction; IV Status: Completed infusion me1 17:18 Drug: Rocephin IV 1 grams IV at per protocol once; Given slow IV push per pharmacy db instructions Route: IV; Rate: per protocol; Site: right antecubital; 20:59 Follow up: Response: No adverse reaction; IV Status: Completed infusion me1 20:12 Drug: Meropenem IV 1 grams IV at per protocol once; (mix in NS 100 mL) Route: IV; Rate: me1 per protocol; Site: right antecubital; 20:59 Follow up: IV Status: Infusion continued upon admission me1 20:12 Drug: NS 0.9% IV 1000 ml IV at 1 bolus Per protocol; 1000 mL bolus Route: IV; Rate: 1 me1 bolus; Site: right antecubital; 20:59 Follow up: IV Status: Infusion continued upon admission me1 20:12 Drug: Flomax PO 0.4 mg PO once Route: PO; me1 20:59 Follow up: Response: No adverse reaction me1 Medication: 16:30 VIS not applicable for this client. me1 Outcome: 19:16 Decision to Hospitalize by Provider. kenia 20:58 Admitted to Med/surg me1 21:26 Condition: stable me1 21:26 Patient left the ED. me1 Signatures: Dispatcher [employer] EDMS Nicholas Roy MD MD cha Martinez, Alfonso em1 Mahogany Peoples RN RN Yanci Hull RN RN 10 Gail Marti RN RN ks1 Carisa Paul 3 Corrections: (The following items were deleted from the chart) 17:20 17:07 Inserted saline lock: 20 gauge in right antecubital area, using aseptic db technique. Blood collected. db 17:20 16:47 Initial lab(s) drawn, by me, sent to lab. Second set of blood cultures drawn by db ks, db 17:55 16:36 Chief complaint: Patient states: Burning with urination onset 2 days ago. pt me1 states that she is also feeling weak. cm10 18:01 16:36 Chief complaint: Patient states: Burning with urination onset 2 days ago. pt me1 states that she is also feeling weak. me1
[2023-08-19] MEDS ORDERED: ACETAMINOPHEN 325 MG TABLET PO PRN (19:49)
[2023-08-19] MEDS ORDERED: ONDANSETRON 4 MG/2 ML VIAL IV PRN (19:49)
--- NOTE | 2023-08-19 19:53 | P.HP ---
Certification for Inpatient Patient admitted to: Inpatient With expected LOS: >2 Midnights Practitioner: I am a practitioner with admitting privileges, knowledge of patient current condition, hospital course, and medical plan of care. Services: Services provided to patient in accordance with Admission requirements found in Title 42 Section 412.3 of the Code of Federal Regulations Patient History Date of Service: 08/19/23 Reason for admission: Hematuria History of Present Illness: 77 yrs old Female with past medical history of hypertension, diabetes, pulmonary embolism, depression, hyperlipidemia, chronic pain, glaucoma who presented to the ER with generalized weakness and hematuria. Patient states that she noticed to have dark urine. Associated with abdominal pain and left flank pain. Patient has history of kidney stones. Denies any fever or chills. Associated with some nausea but no vomiting. Denies any diarrhea. Patient was assessed in the ER and was admitted for further management of UTI as well as ureteric colic Allergies brimonidine tartrate [From Alphagan P] Allergy (Unknown, Verified 07/03/17 14:51) Hives celecoxib [From Celebrex] Allergy (Unknown, Verified 07/03/17 14:51) Hives codeine Allergy (Unknown, Verified 07/03/17 14:51) Hives zolpidem [From Ambien] Adverse Reaction (Verified 10/20/19 01:37) confusion Home medications list reviewed: Yes Home Medications: Gabapentin [Neurontin*] 900 mg PO BEDTIME 01/14/13 Atorvastatin Calcium 40 mg PO BEDTIME 12/25/15 Hydrocodone Bit/Acetaminophen [Hydrocodon-Acetaminophn 10-325] 1 tab PO Q6H PRN 10/18/18 Promethazine HCl 25 mg PO Q4H PRN 10/18/18 Bimatoprost [Lumigan Opthalmic Drops*] 1 gtt RIGHT EYE BEDTIME 10/16/19 Dorzolamide HCl/Timolol Maleat [Dorzolamide-Timolol Eye Drops] 1 gtt EACH EYE BID 10/16/19 Nebivolol HCl [Bystolic*] 5 mg PO DAILY 10/16/19 Apixaban [Eliquis] 5 mg PO BID #60 tablet 10/18/19 Amox/Clavulanate [Augmentin 500-125 mg Tab] 500 mg PO BID #14 tab 10/19/19 Ferrous Sulfate [Iron] 325 mg PO BID #60 tablet 10/19/19 - Past Medical/Surgical History Diabetic: Yes Past Medical History: Reviewed- Non-Contributory -: hepatitis B -: depression -: hyperlipidemia -: diabetes -: neurovascular glaucoma -: pulmonary embolism -: hypertension -: HYPERLIPIDEMIA -: Glaucoma Past Surgical History: Reviewed- Non-Contributory -: Right KNEE REPLACEMENT -: HIP ARTHROPLASTY - Bilateral -: HYSTERECTOMY -: D&C -: Tubal Ligation -: Lumbar laminectomy -: -: Cataract Surgery bilateral - Family History Family History: Reviewed- Non-Contributory - Family History Father -: Cancer Mother -: Heart disease - Social History Smoking Status: Never smoker Alcohol use: No CD- Drugs: Yes Caffeine use: No Review of Systems 10-point ROS is otherwise unremarkable Physical Examination - Vital Signs Temperature: 98.1 F Blood Pressure: 156/78 Pulse: 78 Respirations: 18 Pulse Ox (%): 94 - Physical Exam General: Alert, In no apparent distress, Oriented x3, Obese HEENT: Atraumatic, Normocephalic Neck: Supple, 2+ carotid pulse no bruit Respiratory: Clear to auscultation bilaterally, Normal air movement Cardiovascular: Regular rate/rhythm, Normal S1 S2 Capillary refill: <2 Seconds Gastrointestinal: Soft and benign, W/out hepatosplenomegaly Musculoskeletal: No clubbing, No swelling Integumentary: No rashes, No breakdown Neurological: Normal strength at 5/5 x4 extr, Cranial nerves 3-12 intact, Normal reflexes 2+, Normal affect Lymphatics: No axilla or inguinal lymphadenopathy - Studies Laboratory Data (last 24 hrs) 08/19/23 08/19/23 08/19/23 17:07 17:07 17:07 WBC 8.20 Hgb 10.7 L Hct 34.0 L Plt Count 206 PT 15.1 H INR 1.39 Sodium 136 Potassium 4.9 BUN 26 H Creatinine 1.85 H Glucose 145 H Magnesium 1.7 Total Bilirubin 0.6 AST 18 ALT 18 Alkaline Phosphatase 50 Lipase 47 Assessment and Plan - Problems (Diagnosis) (1) UTI (urinary tract infection) Current Visit: Yes Status: Acute Plan: Sepsis due to UTI Lactic acidosis UTI Started on IV antibiotic IV hydration Monitor closely Hypertension Antihypertensives titrated Continue home medications and titrate as needed diabetes Diabetes Insulin sliding scale Accu-Chek q. ACH S Hyperlipidemia Continue statin Acute kidney injury Monitor renal parameters Electrolytes monitor and replace accordingly IV hydration GI/DVT prophylaxis Advanced directive full code (2) Nephrolithiasis Current Visit: Yes Status: Acute Plan: CT findings noted IMPRESSION: Nonobstructing stones in left kidney including a 9 mm left renal pelvis stone. No hydronephrosis. Bilateral renal scarring. No acute findings within the abdomen or pelvis. Pain control Patient needs follow-up with outpatient urology Discharge Plan: Home Plan to discharge in: 48 Hours - Advance Directives Does patient have a Living Will: No Does patient have a Durable POA for Healthcare: No - Code Status/Comfort Care Code Status: Full Code Time Spent Managing Pts Care (In Minutes): 48
[2023-08-19] MEDS ORDERED: Meropenem 500 MG VIAL IV ONE ×2 (20:07→20:11)
[2023-08-19] MEDS ORDERED: TAMSULOSIN 0.4 MG SR CAP ONE (20:07)
[2023-08-19] MEDS ORDERED: NA CHLORIDE 0.9% 100 ML ONE (20:08)
[2023-08-19] MEDS: NA CHLORIDE 0.9% 1,000 ML IV SCH (21:47)
[2023-08-19] MEDS: PIPER TAZO 3.375 GM in NA CHLORIDE 0.9% 100 ML IV SCH (21:53)
[2023-08-19] MEDS ORDERED: MORPHINE 2 MG/ML SYR IV PRN (22:23)
[2023-08-19] MEDS: MORPHINE 4 MG/ML SYR IV PRN (23:33)
[2023-08-19] MEDS: TRAZODONE 50 MG TABLET PO ONE (23:54)
[2023-08-20] MEDS: HYDROCODONE/APAP 10/325 TAB PO PRN (02:53)
[2023-08-20 07:01] LABS: Absolute Basophils 0.1 K/uL (0-0.5); Absolute Eosinophils 0.2 K/uL (0-0.5); Absolute Lymphocytes (CBC) 2.6 K/uL (0.7-4.9); Absolute Monocytes 0.9 K/uL (0.1-1.3); Absolute Neutrophil 3.7 K/uL (1.8-8.0); Basophils % 1.1 % (0-1.3); Hematocrit 31.4 % (36.0-45.0); Hemoglobin 10.2 g/dL (12.0-15.0); Lymphocytes % 34.9 % (15.3-44.8); MCH 27.4 pg (27.0-35.0); MCHC 32.4 g/dL (32.0-36.0); MCV 84.5 fL (80-100); MPV 8.9 fL (7.6-11.3); Monocytes % 11.5 % (3.3-12.3); Neutrophils % 49.5 % (41.7-73.7); Nucleated Red Blood Cells % 0.1 % (0-0); Platelets 180 thou/uL (152-406); RBC Red Blood Cell Count 3.71 M/uL (3.86-4.86); Red Cell Distribution Width 16.8 % (12.1-15.2)
[2023-08-20 07:34] LABS: Albumin 2.7 g/dL (3.4-5.0); Albumin/Globulin Ratio 0.8 (1.1-1.8); Anion Gap 6.8 mEq/L (5.0-15.0); Bilirubin Total 0.5 mg/dL (0.2-1.0); Globulin 3.3 g/dL (2.3-3.5); Potassium 4.8 mEq/L (3.5-5.1)
[2023-08-20] MEDS: NEBIVOLOL HCL 5 MG TAB PO SCH (08:11)
[2023-08-20] MEDS: ATORVASTATIN 40 MG TAB PO SCH (08:12)
[2023-08-20] MEDS: APIXABAN 5 MG TABLET PO SCH (09:09)
[2023-08-20] MEDS: GABAPENTIN 300 MG CAP PO SCH (11:13)
[2023-08-20] MEDS: METFORMIN HCL 500 MG TAB PO SCH (11:14)
--- NOTE | 2023-08-20 11:23 | P.PN ---
Date of Service: 08/20/23 Subjective: Still with dysuria, hematuria No acute events overnight ROS: 10 point ROS as noted above, otherwise negative Physical exam GEN: Alert, oriented, NAD HEENT: Normal conjunctiva, sclera anicteric CV: Regular rate and rhythm, no edema Pulm: Nonlabored respirations on room air ABD: Soft, nontender, nondistended MSK: No joint tenderness Integumentary: No rashes Neuro: Normal speech, normal affect Vitals reviewed Problem List Severe sepsis due to UTI with hematuria Nephrolithiasis Started on IV antibiotic Await cultures IV hydration Monitor closely History of DVT/PE on chronic anticoagulation Continue Eliquis Hypertension Antihypertensives titrated Continue home medications and titrate as needed diabetes Diabetes mellitus type ZOotj-jqhplrd-nhhjwjudh Insulin sliding scale Accu-Chek q. ACH S Hyperlipidemia Continue statin Acute kidney injury Secondary to sepsis Monitor renal parameters Electrolytes monitor and replace accordingly IV hydration VTE:Lovenox Code: Full Dispo: 2-3 days Time Spent Managing Pts Care (In Minutes): 35
[2023-08-20 11:52] VITALS: BMI 37.5
[2023-08-20] MEDS ORDERED: PNEUMOCOCCAL VACCINE 0.5 ML IMVAC ONE (12:00)
[2023-08-20] MEDS: TRAZODONE 50 MG TABLET PO SCH (21:00)
[2023-08-21 08:15] LABS: Hematocrit 30.4 % (36.0-45.0); MCH 27.7 pg (27.0-35.0); MCHC 32.7 g/dL (32.0-36.0); MCV 84.6 fL (80-100); MPV 8.7 fL (7.6-11.3); Platelets 179 thou/uL (152-406); Red Cell Distribution Width 16.4 % (12.1-15.2)
[2023-08-21 08:30] LABS: Anion Gap 7.8 mEq/L (5.0-15.0); Potassium 4.8 mEq/L (3.5-5.1)
--- NOTE | 2023-08-21 09:38 | P.PN ---
Date of Service: 08/21/23 Subjective: hematuria improving No acute events overnight ROS: 10 point ROS as noted above, otherwise negative Physical exam GEN: Alert, oriented, NAD HEENT: Normal conjunctiva, sclera anicteric CV: Regular rate and rhythm, no edema Pulm: Nonlabored respirations on room air ABD: Soft, nontender, nondistended MSK: No joint tenderness Integumentary: No rashes Neuro: Normal speech, normal affect Vitals reviewed Problem List Severe sepsis due to UTI with hematuria Nephrolithiasis Started on IV antibiotic Blood cultures with no growth in 24 hours Awaiting urine culture Tolerating p.o., feeling better PT eval Possible discharge later today or tomorrow morning History of DVT/PE on chronic anticoagulation Continue Eliquis Hypertension Antihypertensives titrated Continue home medications and titrate as needed diabetes Diabetes mellitus type CAwzd-hkeoals-vyzidrnok Insulin sliding scale Accu-Chek q. ACHS Hyperlipidemia Continue statin Acute kidney injury Secondary to sepsis Improved Electrolytes monitor and replace accordingly VTE:Lovenox Code: Full Dispo: 2-3 days Time Spent Managing Pts Care (In Minutes): 35
--- NOTE | 2023-08-21 14:10 | EKG ---
Test Date: 2023-08-19 Test Time: 16:41:29 Wallpaper Scraper: KIM MEASUREMENT RESULTS: Intervals: Rate: 69 NC: 164 QRSD: 84 QT: 418 QTc: 447 [place]: P: 41 NC: 164 QRS: 40 T: 68 INTERPRETIVE STATEMENTS: Sinus rhythm with PVCs Low voltage QRS Borderline ECG Compared to ECG 02/06/2023 11:29:12 Low QRS voltage now present Sinus bradycardia no longer present Electronically Signed On 08-21-23 14:05:46 CDT by Lio Sparks
[2023-08-22 08:27] VITALS: BP 149/61; O2SAT 94
[2023-08-22 10:48] VITALS: TEMP 98.5
--- NOTE | 2023-08-22 10:49 | P.DS ---
Admission Date: 08/19/23 Discharge Date: 08/22/23 Disposition: DC HOME/HOME HEALTH CARE Discharge Condition: GOOD Reason for Admission: Hematuria Brief History of Present Illness: 77 yrs old Female with past medical history of hypertension, diabetes, pulmonary embolism, depression, hyperlipidemia, chronic pain, glaucoma who presented to the ER with generalized weakness and hematuria. Patient states that she noticed to have dark urine. Associated with abdominal pain and left flank pain. Patient has history of kidney stones. Denies any fever or chills. Associated with some nausea but no vomiting. Denies any diarrhea. Hospital Course: Problem List Severe sepsis due to UTI with hematuria Nephrolithiasis History of DVT/PE on chronic anticoagulation Hypertension Diabetes mellitus type UZfth-yjoupco-lbfzdrcsq Hyperlipidemia Acute kidney injury Secondary to sepsis Patient was admitted to the hospital for UTI, severe sepsis. She was initially treated with IV antibioticsZosyn. Blood cultures showed no growth, urine culture grew Klebsiella pneumonia a sensitive to penicillin/Zosyn as well as Cipro. Patient with reported penicillin allergy with hives although she was tolerating Zosyn well during hospitalization, will prescribe Cipro outpatient for treatment of UTI. Patient was also seen with PT and ambulated similar to her baseline, she is feeling much better today and stable for discharge at this time. Of note patient did have some hematuria during her hospitalization, recommend follow-up with PCP in 1 to 2 weeks to recheck urine, if there is persistent hematuria recommend outpatient urology evaluation. Please continue home medications as prescribed Take the antibioticCipro for the next 5 days twice daily Home health referral sent to: [facility] P:[phone] Vital Signs/Physical Exam: Temp Pulse Resp BP Pulse Ox 98.5 F 55 18 149/61 H 92 08/22/23 08:00 08/22/23 08:14 08/22/23 08:00 08/22/23 08:14 08/22/23 08:00 General: Alert, In no apparent distress, Oriented x3 HEENT: Atraumatic, PERRLA Neck: Supple, JVD not distended Respiratory: Clear to auscultation bilaterally, Normal air movement Cardiovascular: Regular rate/rhythm, Normal S1 S2 Gastrointestinal: Normal bowel sounds Musculoskeletal: No tenderness Integumentary: No rashes Neurological: Normal speech, Normal tone Laboratory Data at Discharge: WBC 6.40 thou/uL (4.3-10.9) 08/21/23 07:51 Hgb 10.0 g/dL (12.0-15.0) L 08/21/23 07:51 Hct 30.4 % (36.0-45.0) L 08/21/23 07:51 Plt Count 179 thou/uL (152-406) 08/21/23 07:51 PT 15.1 SECONDS (9.5-12.5) H 08/19/23 17:07 INR 1.39 08/19/23 17:07 Sodium 140 mEq/L (136-145) 08/21/23 07:51 Potassium 4.8 mEq/L (3.5-5.1) 08/21/23 07:51 BUN 19 mg/dL (7-18) H 08/21/23 07:51 Creatinine 1.52 mg/dL (0.55-1.02) H 08/21/23 07:51 Glucose 115 mg/dL (74-106) H 08/21/23 07:51 Magnesium 1.8 mg/dL (1.6-2.4) 08/20/23 06:13 Total Bilirubin 0.5 mg/dL (0.2-1.0) 08/20/23 06:13 AST 15 U/L (15-37) 08/20/23 06:13 ALT 16 U/L (13-56) 08/20/23 06:13 Alkaline Phosphatase 45 U/L (45-117) 08/20/23 06:13 Lipase 47 U/L (13-75) 08/19/23 17:07 Home Medications: Gabapentin [Neurontin*] 900 mg PO BEDTIME 01/14/13 Atorvastatin Calcium 40 mg PO DAILY 12/25/15 Hydrocodone Bit/Acetaminophen [Hydrocodon-Acetaminophn 10-325] 2 tab PO BID PRN 10/18/18 Nebivolol HCl [Bystolic*] 5 mg PO DAILY 10/16/19 Apixaban [Eliquis] 5 mg PO BID #60 tablet 10/18/19 Metformin HCl 500 mg PO DAILY 08/19/23 Trazodone HCl 50 mg PO BEDTIME 08/19/23 Ciprofloxacin HCl 500 mg PO BID 5 Days #10 tab 08/22/23 New Medications: Ciprofloxacin HCl 500 mg PO BID 5 Days #10 tab Physician Discharge Instructions: Patient was admitted to the hospital for UTI, severe sepsis. She was initially treated with IV antibioticsZosyn. Blood cultures showed no growth, urine culture grew Klebsiella pneumonia a sensitive to penicillin/Zosyn as well as Cipro. Patient with reported penicillin allergy with hives although she was tolerating Zosyn well during hospitalization, will prescribe Cipro outpatient for treatment of UTI. Patient was also seen with PT and ambulated similar to her baseline, she is feeling much better today and stable for discharge at this time. Of note patient did have some hematuria during her hospitalization, recommend follow-up with PCP in 1 to 2 weeks to recheck urine, if there is persistent hematuria recommend outpatient urology evaluation. Please continue home medications as prescribed Take the antibioticCipro for the next 5 days twice daily Home health referral sent to: [facility] P:[phone] Diet: AHA Activity: Fall precautions Followup: Esteban Jesus MD [Primary Care Provider] - 1-2 Weeks Time spent managing pt's care (in minutes): 35
== END 2023-08-22 10:22 | disposition home health service (06) | DRG 872 ==
LOC: ER 16:05 → ERHOLD 19:49 → 2ND 20:27
PROVIDERS: ADMIT Family Medicine; ATTEND Hospitalist
DX: A41.9 Sepsis, unspecified organism (principal); N30.01 Acute cystitis with hematuria; E87.20 Acidosis, unspecified; N17.9 Acute kidney failure, unspecified; R65.20 Severe sepsis without septic shock; E78.5 Hyperlipidemia, unspecified; I12.9 Hypertensive chronic kidney disease with stage 1 through stage 4 chronic kidney disease, or unspecified chronic kidney disease; N18.9 Chronic kidney disease, unspecified; E11.22 Type 2 diabetes mellitus with diabetic chronic kidney disease; E11.39 Type 2 diabetes mellitus with other diabetic ophthalmic complication; H42 Glaucoma in diseases classified elsewhere; E66.9 Obesity, unspecified; N20.0 Calculus of kidney; B96.1 Klebsiella pneumoniae [K. pneumoniae] as the cause of diseases classified elsewhere; Z88.5 Allergy status to narcotic agent; Z88.8 Allergy status to other drugs, medicaments and biological substances; Z98.51 Tubal ligation status; Z68.37 Body mass index [BMI] 37.0-37.9, adult; Z79.01 Long term (current) use of anticoagulants; Z86.711 Personal history of pulmonary embolism; Z79.899 Other long term (current) drug therapy; Z96.651 Presence of right artificial knee joint; Z96.643 Presence of artificial hip joint, bilateral; Z90.710 Acquired absence of both cervix and uterus; Z86.718 Personal history of other venous thrombosis and embolism
CPT/HCPCS: 36415; 71045; 74176; 76377; 80048; 80053; 80076; 81001; 82947; 83605; 83690; 83735; 83880; 84484; 85025; 85027; 85610; 87040; 87077; 87086; 87088; 87186; 93005; 94760; 96365; 96366; 97116; 97161; 99285; J0696; J2543; J7030

== ENCOUNTER 2024-02-28 09:12 | Emergency (ER) | payer OTHER, BC ==
[2024-02-28 09:50] LABS: Absolute Eosinophils 0.3 K/uL (0-0.5); Absolute Lymphocytes (CBC) 2.7 K/uL (0.7-4.9); Absolute Monocytes 0.7 K/uL (0.1-1.3); Absolute Neutrophil 3.7 K/uL (1.8-8.0); Basophils % 0.6 % (0-1.3); Eosinophils % 4.1 % (0-4.4); Hematocrit 38.8 % (36.0-45.0); Hemoglobin 12.7 g/dL (12.0-15.0); Lymphocytes % 36.3 % (15.3-44.8); MCH 27.2 pg (27.0-35.0); MCHC 32.7 g/dL (32.0-36.0); MCV 83.1 fL (80-100); Monocytes % 8.9 % (3.3-12.3); Neutrophils % 50.1 % (41.7-73.7); Nucleated Red Blood Cells % 0.1 % (0-0); Platelets 238 thou/uL (152-406); RBC Red Blood Cell Count 4.67 M/uL (3.86-4.86); Red Cell Distribution Width 15.9 % (12.1-15.2)
--- NOTE | 2024-02-28 09:59 | RAD REPORT ---
EXAM: Chest Single View HISTORY: COUGH COMPARISON: 08/19/2023 FINDINGS: LUNGS/PLEURA: The lungs are clear. No pleural effusions or pneumothorax. No pulmonary edema. MEDIASTINUM: The mediastinal silhouette is within normal limits. CARDIAC: The cardiac silhouette is within normal limits. UPPER ABDOMEN: No significant abnormality. BONES: No acute fracture. LINES/TUBES/OTHER: N/A IMPRESSION: No evidence of acute cardiopulmonary disease.
[2024-02-28 10:12] LABS: Anion Gap 11.5 mEq/L (5.0-15.0); Potassium 4.5 mEq/L (3.5-5.1); Troponin High Sensitivity 15.5 pg/mL (<58.9)
[2024-02-28 10:16] LABS: SARS-CoV-2 Antigen CONTROL BLUE LINE VIS/BG OK; SARS-CoV-2 Antigen Rapid Res Negative (Negative)
[2024-02-28] MEDS ORDERED: levoFLOXacin 750 MG TAB ONE (10:31)
--- NOTE | 2024-02-28 10:32 | ER ---
Nurse's Notes [facility] Name: Anita Samayoa Age: 78 yrs Sex: Female : 1945 Arrival Date: 02/28/2024 Time: 09:12 Bed 4 Private MD: Diagnosis: Dyspnea, unspecified Presentation: 02/27 09:23 Chief complaint: Patient states: SOB for 2 days. + cough but no fever. Coronavirus ll1 screen: Client denies travel out of the [place] in the last 14 days. Coronavirus screen: cough unrelated to allergies, difficulty breathing, fatigue, shortness of breath, Client presents with at least one sign or symptom that may indicate coronavirus-19. Standard/surgical mask placed on the client. Ebola Screen: Patient denies travel to an Ebola-affected area in the 21 days before illness onset. Initial Sepsis Screen: Does the patient meet any 2 criteria? No. Patient's initial sepsis screen is negative. Does the patient have a suspected source of infection? No. Patient's initial sepsis screen is negative. Risk Assessment: Do you want to hurt yourself or someone else? Patient reports no desire to harm self or others. Onset of symptoms was February 27, 2024. 09:23 Method Of Arrival: Wheelchair ll1 09:23 Acuity: TONIA 3 ll1 Triage Assessment: 09:24 General: Appears uncomfortable, ill, Behavior is calm, cooperative, appropriate for ll1 age, Reports feeling ill for fatigue for. EENT: Reports nasal congestion. Neuro: Reports weakness. Respiratory: Reports shortness of breath cough that is Onset: The symptoms/episode began/occurred yesterday, the patient has mild shortness of breath. Historical: - Allergies: 09:22 Alphagan P; ll1 09:22 Celebrex; ll1 09:22 Codeine; ll1 09:22 PENICILLINS; ll1 - PMHx: 09:22 Depression; Diabetes - IDDM; Glaucoma; Diabetes - NIDDM; Hyperlipidemia; Pulmonary ll1 Embolism; Hypertension; - PSHx: 09:22 none recent; ll1 - Immunization history:: Adult Immunizations up to date. - Infectious Disease History:: Denies. - Social history:: Smoking status: Patient/guardian denies using tobacco, the patient reports quitting approximately 20 years ago. Screenin:30 [facility] ED Fall Risk Assessment (Adult) History of falling in the last 3 months, bp including since admission No falls in past 3 months (0 pts) Confusion or Disorientation No (0 pts) Intoxicated or Sedated No (0 pts) Impaired Gait Yes (1 pt) Mobility Assist Device Used Yes (1 pt) Altered Elimination No (0 pt) Score/Fall Risk Level 0 - 2 = Low Risk Oriented to surroundings. Abuse screen: Denies threats or abuse. Denies injuries from another. Nutritional screening: No deficits noted. Tuberculosis screening: No symptoms or risk factors identified. Assessment: 09:30 General: Appears in no apparent distress. obese, Behavior is cooperative, appropriate bp for age, anxious. Pain: Denies pain. Neuro: No deficits noted. Cardiovascular: Rhythm is sinus rhythm. Respiratory: Airway is patent Respiratory effort is even, Breath sounds are coarse bilaterally. GI: No signs and/or symptoms were reported involving the gastrointestinal system. : No signs and/or symptoms were reported regarding the genitourinary system. EENT: No deficits noted. Derm: No deficits noted. Musculoskeletal: Swelling present in right leg and left leg. 10:29 Reassessment: No changes from previously documented assessment. Patient is alert, bp oriented x 3, equal unlabored respirations, skin warm/dry/pink. Vital Signs: 09:23 BP 165 / 84; Pulse 91; Resp 18; Temp 97.4; Pulse Ox 99% on R/A; Weight 95.25 kg; Height ll1 5 ft. 3 in. ; 10:29 BP 168 / 96; Pulse 85; Resp 16; Pulse Ox 100% ; bp 09:23 Body Mass Index 37.20 (95.25 kg, 160.02 cm) ll1 ED Course: 09:14 Patient arrived in ED. ra3 09:15 George Burgos, EDUARD is Primary Nurse. bp 09:16 Varghese Jacobsen MD is Attending Physician. ec2 09:22 Arm band placed on Patient placed in an exam room, on a stretcher. ll1 09:24 Triage completed. ll1 09:30 Patient has correct armband on for positive identification. bp 09:32 EKG done, by ED staff, reviewed by Varghese Jacobsen MD. ap3 09:39 Initial lab(s) drawn, by or, sent to lab. COVID swab sent to lab. Flu and/or RSV swab bp sent to lab. Inserted saline lock: 22 gauge in right forearm, using aseptic technique. Blood collected. Flushed with 10 mL NS. 09:42 XRAY Chest (1 view) In Process Unspecified. EDMS 10:18 Notified ED physician of other SOB. O2 sat 100% RA. ll1 10:40 wheeled to restroom. SOB with exertion reported. Wheeled back to room 4. Tolerated ll1 well. . 10:57 No provider procedures requiring assistance completed. IV discontinued, intact, bp bleeding controlled, No redness/swelling at site. Pressure dressing applied. 10:58 Provided Education on: NA. bp Administered Medications: 10:30 Not Given (Physician Discretion): [id number] mg IVPB at calculated rate once ec2 10:34 Drug: LevOfloxacin PO 750 mg PO once Route: PO; bp 10:57 Follow up: Response: No adverse reaction bp Medication: 09:30 VIS not applicable for this client. bp Outcome: 10:31 Discharge ordered by . ec2 10:57 Discharged to home via wheelchair, with family, bp 10:57 Condition: stable 10:57 Discharge instructions given to patient, family, Instructed on discharge instructions, follow up and referral plans. medication usage, Demonstrated understanding of instructions, follow-up care, medications, Prescriptions given X 1, 10:58 Patient left the ED. bp Signatures: Dispatcher [employer] EDGeorge Pozo, RN RN bp Angy Patel RN RN ap3 Isauro Milan RN RN ll1 Varghese Jacobsen MD MD ec2 Carisa Paul ra3
--- NOTE | 2024-02-28 10:32 | EDPHYS ---
Physician Documentation [facility] Name: Anita Samayoa Age: 78 yrs Sex: Female : 1945 Arrival Date: 02/28/2024 Time: 09:12 Bed 4 Private MD: ED Physician Varghese Jacobsen HPI: 02/27 09:22 This 78 yrs old Female presents to ER via Unassigned with complaints of ec2 Breathing Difficulty. 09:22 Patient arrives today d/t concern for cough and cold symptoms. Patient returns with ec2 evidence of cough symptoms. Patient recently prescribed ciprofloxacin and Tessalon Perles by primary care doctor. Patient reports some shortness of breath. Patient hypertension, hyperlipidemia, diabetes. No fevers or chills, no vomiting or diarrhea, does endorse body aches.. Historical: - Allergies: 09:22 Alphagan P; ll1 09:22 Celebrex; ll1 09:22 Codeine; ll1 09:22 PENICILLINS; ll1 - PMHx: 09:22 Depression; Diabetes - IDDM; Glaucoma; Diabetes - NIDDM; Hyperlipidemia; Pulmonary ll1 Embolism; Hypertension; - PSHx: 09:22 none recent; ll1 - Immunization history:: Adult Immunizations up to date. - Infectious Disease History:: Denies. - Social history:: Smoking status: Patient/guardian denies using tobacco, the patient reports quitting approximately 20 years ago. ROS: 09:22 Constitutional: as per hpi ec2 Exam: 09:22 Constitutional: No acute distress ec2 Vital Signs: 09:23 BP 165 / 84; Pulse 91; Resp 18; Temp 97.4; Pulse Ox 99% on R/A; Weight 95.25 kg; Height ll1 5 ft. 3 in. ; 10:29 BP 168 / 96; Pulse 85; Resp 16; Pulse Ox 100% ; bp 09:23 Body Mass Index 37.20 (95.25 kg, 160.02 cm) ll1 MDM: 09:16 Medical Screening Exam initiated ec2 09:22 Data reviewed: vital signs, nurses notes. ED course: Patient arrives today for upper ec2 respiratory symptoms. Examination is revealing for well-appearing nontoxic individuals otherwise in no acute distress. Will obtain a cardiac workup and chest x-ray as well as viral swabs. Differential includes viral infection, volume overload, anemia.. 09:27 ED course: EKG independently reviewed and interpreted by me, shows normal sinus rhythm, ec2 rate of 89, no acute ST segment elevations, intervals are nonactionable, PVCs noted.. 10:20 ED course: Labs unrevealing, and viral swabs negative, chest x-ray without acute ec2 intrathoracic process. Patient with CKD evident on today's labs as well as previous labs.. 10:32 ED course: Patient wanted to discuss admission, patient is with appropriate oxygen ec2 saturations, no significant work of breathing, reassuring vital signs, lab work that is at baseline and a reassuring chest x-ray. Patient is appropriate for discharge and can follow-up with the primary care doctor.. 12 09:16 Order name: Basic Metabolic Panel; Complete Time: 10:18 ec2 02/27 09:16 Order name: CBC with Diff; Complete Time: 10:18 ec2 02/27 09:16 Order name: NT PRO-BNP; Complete Time: 10:18 ec2 02/27 09:16 Order name: Troponin HS; Complete Time: 10:18 ec2 02/27 09:16 Order name: Influenza Screen (a \T\ B); Complete Time: 10:18 ec2 02/27 09:16 Order name: SARS RAPID; Complete Time: 10:18 ec2 02/27 09:16 Order name: XRAY Chest (1 view); Complete Time: 10:18 ec2 02/27 09:16 Order name: Cardiac monitoring; Complete Time: 09:32 ec2 02/27 09:16 Order name: EKG - Nurse/Tech; Complete Time: 09:32 ec2 02/27 09:16 Order name: IV Saline Lock; Complete Time: 09:38 ec2 02/27 09:16 Order name: Labs collected and sent; Complete Time: 09:38 ec2 02/27 09:16 Order name: O2 Per Protocol; Complete Time: :32 ec2 02/27 09:16 Order name: O2 Sat Monitoring; Complete Time: 09:32 ec2 Administered Medications: 10:30 Not Given (Physician Discretion): [id number] mg IVPB at calculated rate once ec2 10:34 Drug: LevOfloxacin PO 750 mg PO once Route: PO; bp 10:57 Follow up: Response: No adverse reaction bp Disposition Summary: 02/28/24 10:31 Discharge Ordered Notes: Location: Home ec2 Condition: Stable ec2 Diagnosis - Dyspnea, unspecified ec2 Followup: ec2 - With: Private Physician - When: - Reason: Re-evaluation by your physician Discharge Instructions: - Discharge Summary Sheet ec2 - Shortness of Breath, Adult, [id number] ec2 Forms: - Medication Reconciliation Form ec2 - Antibiotic Education ec2 - Prescription Opioid Use ec2 - Patient Portal Instructions ec2 - Leadership Thank You Letter ec2 Prescriptions: - levofloxacin 750 mg Oral tablet - take 1 tablet ORAL route once daily; 7 tablet; Refills: 0, Product Selection ec2 Permitted Signatures: Dispatcher [employer] George Campos, RN RN Isauro Cast RN RN ll1 Varghese Jacobsen MD MD ec2 Corrections: (The following items were deleted from the chart) 09:17 09:17 BASIC METABOLIC PANEL+C.LAB.BRZ ordered. EDMS EDMS 09:17 09:17 CBC+H.LAB.BRZ ordered. EDMS EDMS 09:17 09:17 PROBNP+C.LAB.BRZ ordered. EDMS EDMS 09:17 09:17 Troponin High Sensitivity+C.LAB.BRZ ordered. EDMS EDMS 09:17 09:17 Influenza Screen (A \T\ B)+BA.LAB.BRZ ordered. EDMS EDMS 09:17 09:17 SARS-COV-2 Antigen Rapid+I.LAB.BRZ ordered. EDMS EDMS 09:17 09:17 Chest Single View+RAD.RAD.BRZ ordered. EDNJ EDMS
[2024-02-28 11:22] VITALS: BP 165/84; TEMP 97.4; O2SAT 99
--- NOTE | 2024-03-01 15:52 | EKG ---
Test Date: 2024-02-28 Test Time: 09:23:39 Steam Heating Installer: ALP MEASUREMENT RESULTS: Intervals: Rate: 89 VA: 158 QRSD: 78 QT: 354 QTc: 430 [place]: P: 43 VA: 158 QRS: 19 T: 61 INTERPRETIVE STATEMENTS: Sinus rhythm with fusion complexes Anterior infarct, age undetermined Abnormal ECG Compared to ECG 08/19/2023 16:41:29 Fusion complex(es) now present Myocardial infarct finding now present Ventricular premature complex(es) no longer present Electronically Signed On 03-01-24 15:49:01 UNIT SECY by Baldemar Choudhury
== END 2024-02-28 10:58 | disposition home or self-care (01) ==
LOC: ER 09:12
DX: R06.00 Dyspnea, unspecified (principal); E11.9 Type 2 diabetes mellitus without complications; I10 Essential (primary) hypertension; Z11.52 Encounter for screening for COVID-19
CPT/HCPCS: 36415; 71045; 80048; 83880; 84484; 85025; 87804; 87811; 93005; 99284

== ENCOUNTER 2024-02-28 16:31 | Emergency (ER) | payer OTHER, BC ==
[2024-02-28] MEDS ORDERED: HYDROCODONE/CHLORPHEN 5 ML/OSYR ONE (18:29)
[2024-02-28] MEDS ORDERED: ALBUTEROL 2.5 MG/3 ML NEB SOL ONE (18:30)
[2024-02-28] MEDS ORDERED: predniSONE 20 MG TAB ONE (19:47)
--- NOTE | 2024-02-28 19:47 | EDPHYS ---
Physician Documentation [facility] Name: Anita Samayoa Age: 78 yrs Sex: Female : 1945 Arrival Date: 02/28/2024 Time: 16:31 Bed 20 Private MD: ED Physician Varghese Jacobsen HPI: 02/27 17:01 This 78 yrs old Female presents to ER via Wheelchair with complaints of Breathing pm1 Difficulty. 17:01 Onset: The symptoms/episode began/occurred 2 day(s) ago. Duration: The symptoms are pm1 continuous. The patient's shortness of breath is aggravated by nothing, is alleviated by nothing. Associated signs and symptoms: Pertinent positives: productive cough, Pertinent negatives: chest pain, fever. Severity of symptoms: in the emergency department the symptoms are unchanged. The patient has been recently seen by a physician: with similar presenting complaints, and apparently given a diagnosis of dyspnea in the ER and prior to that seen by PCP and given cough medication and abx, lab tests were done, X-rays were performed. Historical: - Allergies: 16:52 Alphagan P; ap3 16:52 Celebrex; ap3 16:52 Codeine; ap3 16:52 PENICILLINS; ap3 - PMHx: 16:52 Depression; Diabetes - IDDM; Diabetes - NIDDM; Glaucoma; Hyperlipidemia; Hypertension; ap3 Pulmonary Embolism; - Immunization history:: Client reports having NOT received the Covid vaccine. Flu vaccine is not up to date. - Infectious Disease History:: Denies. - Social history:: Smoking status: Patient denies any tobacco usage or history of. ROS: 17:01 Constitutional: Negative for fever, chills, and weight loss, pm1 17:01 Abdomen/GI: Negative for abdominal pain, nausea, vomiting, diarrhea, and constipation, Back: Negative for injury and pain, MS/Extremity: Negative for injury and deformity, Skin: Negative for injury, rash, and discoloration, Neuro: Negative for headache, weakness, numbness, tingling, and seizure, 17:01 Respiratory: Positive for cough, with yellow sputum, shortness of breath, 17:01 All other systems are negative, Exam: 17:01 Constitutional: This is a well developed, well nourished patient who is awake, alert, pm1 and in no acute distress. Head/Face: Normocephalic, atraumatic. 17:01 Skin: Warm, dry with normal turgor. Normal color with no rashes, no lesions, and no evidence of cellulitis. MS/ Extremity: Pulses equal, no cyanosis. Neurovascular intact. Full, normal range of motion. 17:01 Cardiovascular: Exam negative for acute changes, Rate: normal, Rhythm: regular, Pulses: no pulse deficits are appreciated, Heart sounds: normal, 17:01 Respiratory: Exam negative for acute changes, respiratory distress, shortness of breath, Breath sounds: are clear throughout, 17:01 Neuro: Exam negative for acute changes, Orientation: is normal, Mentation: is normal, Motor: is normal, moves all fours, Vital Signs: 16:50 Pulse 95; Resp 18; Temp 98.2; Pulse Ox 100% on R/A; Weight 95.25 kg; Height 5 ft. 3 in. ap3 ; 16:54 BP 152 / 97; ap3 18:28 Resp 20; Pulse Ox 99% on R/A; ll1 19:20 BP 152 / 99; Pulse 93; Resp 18; Pulse Ox 100% on R/A; rg5 16:50 Body Mass Index 37.20 (95.25 kg, 160.02 cm) ap3 MDM: 16:54 Medical Screening Exam initiated pm1 16:58 Data reviewed: vital signs. pm1 19:35 ED course: The patient wanted to discuss possible admission. I explained to her that pm1 she had a previous work up in the ER that was comprehensive for her complaints. Labs WNL except for mild renal insufficiency, normal ECG and chest x-ray. Her HPI presents as a URI. She can follow up with her PCP and discussed with her return precautions . 19:43 Counseling: I had a detailed discussion with the patient and/or guardian regarding the pm1 historical points, exam findings, and any diagnostic results supporting the discharge/admit diagnosis, the need for outpatient follow up, to return to the emergency department if symptoms worsen or persist or if there are any questions or concerns that arise at home, Discussed with patient that her likely diagnosis is a URI and will treat with albuterol, steroids and cough medication. Patient takes norco at home therefore will not give cough suppressant with narcotic. Patient reports her diabetes is well controlled and does not mind her blood sugar getting elevated from steroids. Will give the patient a small oral dose in the ER and discharge with medrol dosepak. Administered Medications: 18:33 Drug: Tussionex Pennkinetic ER PO Suspension 5 ml PO once Route: PO; tm6 19:42 Follow up: Response: No adverse reaction rg5 18:33 Drug: Albuterol Inhalation 2.5 mg Inhalation once Route: Inhalation; tm6 19:49 Drug: predniSONE PO 40 mg PO once Route: PO; rg5 19:53 Follow up: Response: No adverse reaction rg5 Disposition Summary: 02/28/24 19:46 Discharge Ordered Notes: Location: Home pm1 Problem: new pm1 Symptoms: have improved pm1 Condition: Stable pm1 Diagnosis - Acute upper respiratory infection, unspecified pm1 Followup: pm1 - With: Emergency Department - When: As needed - Reason: Worsening of condition Followup: pm1 - With: Private Physician - When: 2 - 3 days - Reason: Recheck today's complaints, Continuance of care, Re-evaluation by your physician Discharge Instructions: - Discharge Summary Sheet pm1 - Upper Respiratory Infection, Adult pm1 Forms: - Medication Reconciliation Form pm1 - Antibiotic Education pm1 - Prescription Opioid Use pm1 - Patient Portal Instructions pm1 - Leadership Thank You Letter pm1 Prescriptions: - Ventolin HFA 90 mcg/actuation Inhalation HFA Aerosol Inhaler - inhale 2 puff INHALATION route every 4-6 hours As needed as needed for pm1 shortness of breath or wheezing; 1 unit; Refills: 0, Product Selection Permitted - Tessalon Perles 100 mg Oral Capsule - take 1 capsule ORAL route every 8 hours As needed; 15 capsule; Refills: 0, pm1 Product Selection Permitted - Medrol (David) 4 mg Oral Tablets, Dose Pack - take 1 tablet ORAL route as directed - follow package instructions; 1 packet; pm1 Refills: 0, Product Selection Permitted Signatures: Rocky Talley NP TISSUE INSERTER pm1 Angy Patel RN RN ap3 Carlos Meredith RN RN tm6 Ovidio De La Cruz RN RN rg5 Corrections: (The following items were deleted from the chart) 16:52 16:52 PSHx: none recent; ap3 ap3
--- NOTE | 2024-02-28 19:47 | ER ---
Nurse's Notes [facility] Name: Anita Samayoa Age: 78 yrs Sex: Female : 1945 Arrival Date: 02/28/2024 Time: 16:31 Bed 20 Private MD: Diagnosis: Acute upper respiratory infection, unspecified Presentation: 02/27 16:50 Chief complaint: Patient states: she is "still feeling short of breath" from being ap3 evaluated this morning. patient also complains of cough. Coronavirus screen: The client reports previous COVID testing was negative. Date of collection: February 28, 2024. Ebola Screen: No symptoms or risks identified at this time. Initial Sepsis Screen: Does the patient meet any 2 criteria? HR > 90 bpm. Does the patient have a suspected source of infection? No. Patient's initial sepsis screen is negative. Risk Assessment: Do you want to hurt yourself or someone else? Patient reports no desire to harm self or others. Onset of symptoms was February 25, 2024. 16:50 Method Of Arrival: Wheelchair ap3 16:50 Acuity: TONIA 3 ap3 Triage Assessment: 16:52 General: Appears in no apparent distress. Behavior is calm, cooperative, appropriate ap3 for age. Pain: Denies pain. Neuro: Level of Consciousness is awake, alert, obeys commands, Oriented to person, place, time, situation, Appropriate for age. Cardiovascular: Patient's skin is warm and dry. Respiratory: Reports shortness of breath cough that is productive, Airway is patent Respiratory effort is even, unlabored, Respiratory pattern is regular, symmetrical, Onset: The symptoms/episode began/occurred gradually, the patient has mild shortness of breath. Historical: - Allergies: 16:52 Alphagan P; ap3 16:52 Celebrex; ap3 16:52 Codeine; ap3 16:52 PENICILLINS; ap3 - PMHx: 16:52 Depression; Diabetes - IDDM; Diabetes - NIDDM; Glaucoma; Hyperlipidemia; Hypertension; ap3 Pulmonary Embolism; - Immunization history:: Client reports having NOT received the Covid vaccine. Flu vaccine is not up to date. - Infectious Disease History:: Denies. - Social history:: Smoking status: Patient denies any tobacco usage or history of. Screenin:53 Abuse screen: Denies threats or abuse. Nutritional screening: No deficits noted. ap3 Tuberculosis screening: No symptoms or risk factors identified. 19:10 [facility] ED Fall Risk Assessment (Adult) History of falling in the last 3 months, rg5 including since admission No falls in past 3 months (0 pts) Confusion or Disorientation No (0 pts) Intoxicated or Sedated No (0 pts) Impaired Gait Yes (1 pt) Mobility Assist Device Used Yes (1 pt) Altered Elimination Yes (1 pt) Score/Fall Risk Level 0 - 2 = Low Risk Oriented to surroundings, Maintained a safe environment, Hourly rounding (assess needs \\T\\ fall precautionary measures) done. Assessment: 19:10 General: Appears in no apparent distress. comfortable, Behavior is calm, cooperative, rg5 appropriate for age. 19:10 Pain: Denies pain. Neuro: Level of Consciousness is awake, alert, obeys commands, rg5 Oriented to person, place, time. Cardiovascular: Rhythm is sinus rhythm. Respiratory: Airway is patent Trachea midline Respiratory effort is even, unlabored, Respiratory pattern is regular, symmetrical, Breath sounds are clear Parent/caregiver reports the patient having shortness of breath cough that is. GI: Abdomen is round non-distended. : No signs and/or symptoms were reported regarding the genitourinary system. EENT: No signs and/or symptoms were reported regarding the EENT system. Derm: Skin is intact, Skin is dry, Skin is normal. Musculoskeletal: Circulation, motion, and sensation intact. Range of motion:. Vital Signs: 16:50 Pulse 95; Resp 18; Temp 98.2; Pulse Ox 100% on R/A; Weight 95.25 kg; Height 5 ft. 3 in. ap3 ; 16:54 BP 152 / 97; ap3 18:28 Resp 20; Pulse Ox 99% on R/A; ll1 19:20 BP 152 / 99; Pulse 93; Resp 18; Pulse Ox 100% on R/A; rg5 16:50 Body Mass Index 37.20 (95.25 kg, 160.02 cm) ap3 ED Course: 16:44 Patient arrived in ED. sj2 16:50 Rocky Talley NP is PHCP. pm1 16:50 Varghese Jacobsen MD is Attending Physician. pm1 16:52 Triage completed. ap3 16:53 Arm band placed on left wrist. ap3 17:00 Nurse Practitioner and/or Physician Fuel Distribution System Operator to see patient. ap3 18:26 Carlos Meredith, RN is Primary Nurse. tm6 18:28 Patient placed in an exam room, on a stretcher. ll1 19:10 Patient has correct armband on for positive identification. Provided Education on: rg5 needs for breathing treatment. 19:10 No provider procedures requiring assistance completed. Patient did not have IV access rg5 during this emergency room visit. Administered Medications: 18:33 Drug: Tussionex Pennkinetic ER PO Suspension 5 ml PO once Route: PO; tm6 19:42 Follow up: Response: No adverse reaction rg5 18:33 Drug: Albuterol Inhalation 2.5 mg Inhalation once Route: Inhalation; tm6 19:49 Drug: predniSONE PO 40 mg PO once Route: PO; rg5 19:53 Follow up: Response: No adverse reaction rg5 Medication: 19:10 VIS not applicable for this client. rg5 Outcome: 19:46 Discharge ordered by MD. pm1 20:03 Discharged to home via wheelchair, rg5 20:03 Condition: stable 20:03 Discharge instructions given to patient, family, Instructed on discharge instructions, follow up and referral plans. Demonstrated understanding of instructions, follow-up care, medications, Prescriptions given X 3, 20:04 Patient left the ED. rg5 Signatures: Rocky Talley NP MEDICAL RECORDS ANALYST pm1 Angy Patel RN RN ap3 Isauro Milan RN RN ll1 Carlos Meredith RN RN tm6 Ovidio De La Cruz RN RN rg5 Hong Mejia 2 Corrections: (The following items were deleted from the chart) 16:52 16:52 PSHx: none recent; ap3 ap3
[2024-02-28 20:08] VITALS: TEMP 98.2
[2024-02-28 20:13] VITALS: BP 152/99; O2SAT 100
== END 2024-02-28 20:04 | disposition home or self-care (01) ==
LOC: ER 16:31
DX: J06.9 Acute upper respiratory infection, unspecified (principal)
CPT/HCPCS: 99284; J7512; J7613